=== PATIENT | male | born 1940 | race Caucasian/White ===

== ENCOUNTER 2019-12-09 06:12 | Emergency (ER) | payer OTHER ==
[2019-12-09] MEDS ORDERED: LIDOCAINE 1% MPF 5 ML VIAL ONE (07:31)
--- NOTE | 2019-12-09 08:46 | RAD REPORT ---
EXAM DESCRIPTION: RAD - Foot Right 3 View - 12/09/2019 8:19 am CLINICAL HISTORY: Right foot pain status post injury FINDINGS: No fracture or dislocation is seen
[2019-12-09] MEDS ORDERED: DERMABOND SKIN ADHESIVE TOP ONE (08:59)
--- NOTE | 2019-12-09 10:21 | ER ---
Nurse's Notes [facility] Name: Arnold Roberts Age: 79 yrs Sex: Male : 1940 Arrival Date: 12/09/2019 Time: 06:12 Bed 6 Private MD: Diagnosis: Superficial injury of head;Laceration with foreign body of scalp;Contusion of right foot Presentation: 12/08 06:19 Chief complaint: EMS states: PATIENT WAS HELPING WHO IS WHEELCHAIR BOUND. HE MISS rv THE STEP, FELL HEAD FIRST HITTING A WOODEN CLOCK. WITH LACERATION TO THE FOREHEAD, TOP OF THE HEAD, ABRASIONS TO LEFT ARM. PAIN ON THE TOES OF THE RIGHT FOOT. DENIES LOC. Care prior to arrival: None. Mechanism of Injury: Fall from standing position. Trauma event details: Injury occurred in the [facility], Injury occurred: at home. Injury occurred: December 09, 2019 Injury occurred at: 06:00. 06:19 Acuity: ORTIZ 2 rv 06:19 Method Of Arrival: EMS: [facility] rv 06:26 Coronavirus screen: Client denies travel out of the [place] in the last 14 days. Ebola rv Screen: No symptoms or risks identified at this time. Initial Sepsis Screen: Does the patient meet any 2 criteria? No. Patient's initial sepsis screen is negative. Does the patient have a suspected source of infection? No. Patient's initial sepsis screen is negative. Risk Assessment: Do you want to hurt yourself or someone else? Patient reports no desire to harm self or others. Onset of symptoms was December 09, 2019 at 06:00. Trauma Activation: Alert Physician: ED Physician; Name: DR TRIPATHI; Notified At: 06:15; Arrived At: 06:16 Physician: General Surgeon; Name: ; Notified At: 06:15; Arrived At: Physician: Radiology; Name: ARLEN; Notified At: 06:15; Arrived At: 06:20 Physician: Respiratory; Name: ; Notified At: 06:15; Arrived At: Physician: Lab; Name: ; Notified At: 06:15; Arrived At: Historical: - Allergies: 06:28 No Known Allergies; rv - PMHx: 06:28 Thyroid problem; Hypertension; High Cholesterol; rv - PSHx: 06:28 DOUBLE STOMACH HERNIA; CABG; Heart stents; PROSTATE SX; rv - Immunization history: Last tetanus immunization: < 5 years ago. - Social history:: Smoking status: Patient denies any tobacco usage or history of. - Family history:: not pertinent. - Hospitalizations: : No recent hospitalization is reported. Screenin:23 Abuse screen: Denies threats or abuse. Denies injuries from another. Tuberculosis rv screening: No symptoms or risk factors identified. 06:26 Nutritional screening: No deficits noted. Fall Risk Fall in past 12 months (25 points). rv Secondary diagnosis (15 points) impaired mobility, No IV (0 pts). Ambulatory Aid- Crutches/Cane/Walker (15 pts). Gait- Weak (10 pts.). Mental Status- Overestimates/Forgets Limitations (15 pts.). Total Ortiz Fall Scale indicates High Risk Score (45 or more points). Fall prevention measures have been instituted. Side Rails Up X 2 Frequent Obs/Assessments Occuring As available patient and family educated on Fall Prevention Program and Strategies. Primary Survey: 06:23 NO uncontrolled hemorrhage observed. Breathing/Chest: Respiratory pattern: regular. rv Circulation: Skin color: pink. Disability Alert. Exposure/Environment: There is no evidence of uncontrolled external bleeding. Obvious injury(ies) are noted at this time: MULTIPLE LACERATION TO THE HEAD. 07:23 Reassessment Airway Airway Patent Breathing/Chest Respiratory pattern Regular tw2 Respiratory effort Spontaneous Unlabored Breath sounds Clear Chest inspection Symmetrical Circulation Heart tones Present Temperature Warm Dry Disability Alert. Secondary Survey: 06:23 HEENT: Head Other LACERATION TO THE FOREHEAD, TOP OF THE SCALP. Face No rv injury/deformity Eyes: No injury or deformity noted. Ears: clear Nose: clear Throat: No injury or deformity noted. Gastrointestinal: No deficits noted. : No deficits noted. No signs and/or symptoms were reported regarding the genitourinary system. Musculoskeletal: Circulation, motion, and sensation intact. Assessment: 06:22 General: Appears comfortable, Behavior is calm, cooperative. Pain: Complains of pain in rv face and right foot. Neuro: Level of Consciousness is awake, alert, obeys commands, Oriented to person, place, time, situation. EENT: No signs and/or symptoms were reported regarding the EENT system. Cardiovascular: Patient's skin is warm and dry. Respiratory: Airway is patent Respiratory effort is even, unlabored, Breath sounds are clear bilaterally. Derm: Wound noted forehead. Injury Description: Laceration sustained to forehead. 06:26 Reassessment: PATIENT WAS TAKEN TO CT SCAN. rv 07:02 Reassessment: provider at bedside at this time. tw2 07:24 Reassessment: Patient appears in no apparent distress at this time. Patient and/or tw2 family updated on plan of care and expected duration. Pain level reassessed. Patient is alert, oriented x 3, equal unlabored respirations, skin warm/dry/pink. pt states "i have no way to get home, my has had a stroke and she cannot drive, and i dont have anyone to call", charge nurse notified of need for transportation to be arranged for discharge. 08:15 Reassessment: Dr Grove at the bedside for laceration repair. sv 10:14 Reassessment: provider at bedside at this time. Reassessment: Patient appears in no tw2 apparent distress at this time. Patient and/or family updated on plan of care and expected duration. Pain level reassessed. Patient is alert, oriented x 3, equal unlabored respirations, skin warm/dry/pink. 10:31 Reassessment: Patient appears in no apparent distress at this time. Patient and/or tw2 family updated on plan of care and expected duration. Pain level reassessed. Patient is alert, oriented x 3, equal unlabored respirations, skin warm/dry/pink. Vital Signs: 06:20 BP 137 / 78; Pulse 65; Resp 18; Temp 97.7(O); Pulse Ox 100% on R/A; oe 07:24 BP 125 / 67; Pulse 55; Resp 16; Pulse Ox 100% on R/A; tw2 08:14 BP 127 / 63; Pulse 61; Resp 16; Pulse Ox 100% ; sv 08:52 BP 142 / 71; Pulse 61; Resp 16; Pulse Ox 100% ; sv 09:34 BP 130 / 63; Pulse 59; Resp 16; Pulse Ox 100% ; sv 10:30 BP 132 / 65; Pulse 61; Resp 17; Pulse Ox 99% on R/A; tw2 Tiverton Coma Score: 06:23 Eye Response: spontaneous(4). Verbal Response: oriented(5). Motor Response: obeys rv commands(6). Total: 15. 07:24 Eye Response: spontaneous(4). Verbal Response: oriented(5). Motor Response: obeys tw2 commands(6). Total: 15. Trauma Score (Adult): 06:23 Eye Response: spontaneous(1); Verbal Response: oriented(1); Motor Response: obeys rv commands(2); Systolic BP: > 89 mm Hg(4); Respiratory Rate: 10 to 29 per min(4); Tiverton Score: 15; Trauma Score: 12 07:24 Eye Response: spontaneous(1); Verbal Response: oriented(1); Motor Response: obeys tw2 commands(2); Systolic BP: > 89 mm Hg(4); Respiratory Rate: 10 to 29 per min(4); Gagan Score: 15; Trauma Score: 12 08:52 Eye Response: spontaneous(1); Verbal Response: oriented(1); Motor Response: obeys sv commands(2); Systolic BP: > 89 mm Hg(4); Respiratory Rate: 10 to 29 per min(4); Tiverton Score: 15; Trauma Score: 12 09:34 Eye Response: spontaneous(1); Verbal Response: oriented(1); Motor Response: obeys sv commands(2); Systolic BP: > 89 mm Hg(4); Respiratory Rate: 10 to 29 per min(4); Gagan Score: 15; Trauma Score: 12 ED Course: 06:12 Patient arrived in ED. cl3 06:19 Beto Hurst, RN is Primary Nurse. rv 06:22 Triage completed. rv 06:23 Patient has correct armband on for positive identification. Placed in gown. Bed in low rv position. Call light in reach. Side rails up X2. 06:23 Patient maintains SpO2 saturation greater than 95% on room air. rv 06:28 Arm band placed on right wrist. Patient placed in the treatment room, on a stretcher, rv Patient notified of wait time. 06:28 Thermoregulation: warm blanket given to patient. rv 06:40 CT Head C Spine In Process Unspecified. EDMS 07:00 Antonio Grove MD is Attending Physician. rn 07:05 Primary Nurse role handed off by Beto Hurst RN tw2 07:05 Ginny Costa, RN is Primary Nurse. tw2 07:10 Warm blanket given. tw2 07:51 X-ray(s) taken. sv 07:56 Wound care: to laceration located on top of scalp was cleaned with soap and water, ut Patient tolerated well. 08:08 Assisted with bedpan. ut 08:17 Assist provider with laceration repair on top of head using sutures. Set up tray. tw2 Performed by Antonio Grove MD Patient tolerated well. 08:19 XRAY Foot RIGHT 3 View In Process Unspecified. EDMS 10:31 Patient did not have IV access during this emergency room visit. tw2 Administered Medications: 07:49 Drug: Lidocaine (1 %) 5 ml {Note: given to Dr Grove for procedure.} Volume: 5 ml; sv Route: Infiltration; Intake: 08:23 PO: 0ml; Total: 0ml. tw2 08:52 PO: 0ml; Total: 0ml. sv 09:34 PO: 0ml; Total: 0ml. sv Output: 08:52 Urine: 0ml; Total: 0ml. sv 09:17 Urine: 350ml (Voided); Total: 350ml. tw2 09:34 Urine: 0ml; Total: 350ml. sv Outcome: 08:18 Patient's length of stay in the Emergency Department was greater than 2 hours. pt d/t tw2 laceration repair neededPatient's length of stay extended due to 10:20 Discharge ordered by . rn 10:31 Discharged to home via wheelchair. tw2 10:31 Condition: stable 10:31 Discharge instructions given to patient, Instructed on discharge instructions, follow up and referral plans. medication usage, wound care, Demonstrated understanding of instructions, follow-up care, medications, wound care, Prescriptions given X 1. 10:31 Patient left the ED. tw2 Signatures: Dispatcher [employer] EDWI Liyah Nixon, Antonio Berrios RN, MD MD rn Wise, Tara, RN RN tw2 Tad Tabro Moriah ut Beto Hurst, Praveen Hatfield RN cl3
--- NOTE | 2019-12-09 10:22 | EDPHYS ---
Physician Documentation [facility] Name: Arnold Roberts Age: 79 yrs Sex: Male : 1940 Arrival Date: 12/09/2019 Time: 06:12 Bed 6 Private MD: ED Physician Antonio Grove HPI: 12/08 08:55 This 79 yrs old Male presents to ER via EMS with complaints of Fall Injury, rn Head Injury-Adult. 08:55 Details of fall: The patient fell from an upright position, while walking. Onset: The rn symptoms/episode began/occurred just prior to arrival. Associated injuries: The patient sustained injury to the head. Severity of symptoms: At their worst the symptoms were mild, in the emergency department the symptoms are unchanged. The patient has not experienced similar symptoms in the past. Reports missed step, fell forward, hit head on flower pot he thinks, no LOC, remembers all events, no blood thinners. + head injury with cut to head. . Historical: - Allergies: 06:28 No Known Allergies; rv - PMHx: 06:28 Thyroid problem; Hypertension; High Cholesterol; rv - PSHx: 06:28 DOUBLE STOMACH HERNIA; CABG; Heart stents; PROSTATE SX; rv - Immunization history: Last tetanus immunization: < 5 years ago. - Social history:: Smoking status: Patient denies any tobacco usage or history of. - Family history:: not pertinent. - Hospitalizations: : No recent hospitalization is reported. ROS: 08:55 Constitutional: Negative for fever, chills, and weight loss, Eyes: Negative for injury, rn pain, redness, and discharge, Neck: Negative for injury, pain, and swelling, Cardiovascular: Negative for chest pain, palpitations, and edema, Respiratory: Negative for shortness of breath, cough, wheezing, and pleuritic chest pain, Abdomen/GI: Negative for abdominal pain, nausea, vomiting, diarrhea, and constipation, MS/Extremity: + pain to right 4th toe Skin: + lacerations to forehead/scalp Neuro: Negative for headache, weakness, numbness, tingling, and seizure. Exam: 08:55 Constitutional: This is a well developed, well nourished patient who is awake, alert, rn and in no acute distress. Head/Face: + moderate laceration to frontal scalp, irregular, with multiple foreign bodies. + multiple superficial skin tears to top of scalp. Eyes: Pupils equal round and reactive to light, extra-ocular motions intact. Lids and lashes normal. Conjunctiva and sclera are non-icteric and not injected. Cornea within normal limits. Periorbital areas with no swelling, redness, or edema. ENT: No oral trauma Neck: No midline tenderness Cardiovascular: Regular rate and rhythm. No pulse deficits. Respiratory: No increased work of breathing, no retractions or nasal flaring. Abdomen/GI: soft, non-tender Skin: 3 Superficial linear lacerations top of scalp, each approx 1-2 cm in length, slow venous bleeding. MS/ Extremity: Pulses equal, no cyanosis. Neurovascular intact. Full, normal range of motion. Equal circumference. Neuro: Awake and alert, GCS 15, oriented to person, place, time, and situation. Cranial nerves II-XII grossly intact. Motor strength 5/5 in all extremities. Sensory grossly intact. Cerebellar exam normal. Vital Signs: 06:20 BP 137 / 78; Pulse 65; Resp 18; Temp 97.7(O); Pulse Ox 100% on R/A; oe 07:24 BP 125 / 67; Pulse 55; Resp 16; Pulse Ox 100% on R/A; tw2 08:14 BP 127 / 63; Pulse 61; Resp 16; Pulse Ox 100% ; sv 08:52 BP 142 / 71; Pulse 61; Resp 16; Pulse Ox 100% ; sv 09:34 BP 130 / 63; Pulse 59; Resp 16; Pulse Ox 100% ; sv 10:30 BP 132 / 65; Pulse 61; Resp 17; Pulse Ox 99% on R/A; tw2 Pearl Coma Score: 06:23 Eye Response: spontaneous(4). Verbal Response: oriented(5). Motor Response: obeys rv commands(6). Total: 15. 07:24 Eye Response: spontaneous(4). Verbal Response: oriented(5). Motor Response: obeys tw2 commands(6). Total: 15. Trauma Score (Adult): 06:23 Eye Response: spontaneous(1); Verbal Response: oriented(1); Motor Response: obeys rv commands(2); Systolic BP: > 89 mm Hg(4); Respiratory Rate: 10 to 29 per min(4); Pearl Score: 15; Trauma Score: 12 07:24 Eye Response: spontaneous(1); Verbal Response: oriented(1); Motor Response: obeys tw2 commands(2); Systolic BP: > 89 mm Hg(4); Respiratory Rate: 10 to 29 per min(4); Pearl Score: 15; Trauma Score: 12 08:52 Eye Response: spontaneous(1); Verbal Response: oriented(1); Motor Response: obeys sv commands(2); Systolic BP: > 89 mm Hg(4); Respiratory Rate: 10 to 29 per min(4); Pearl Score: 15; Trauma Score: 12 09:34 Eye Response: spontaneous(1); Verbal Response: oriented(1); Motor Response: obeys sv commands(2); Systolic BP: > 89 mm Hg(4); Respiratory Rate: 10 to 29 per min(4); Pearl Score: 15; Trauma Score: 12 Laceration: 10:15 Wound Repair of 8cm ( 3.1in ) subcutaneous laceration to forehead. Distal rn neuro/vascular/tendon intact. Anesthesia: Wound infiltrated with 4 mls of 1% lidocaine. Wound prep: Extensive cleansing by surveying or spatial science technician by nurse by me, Wound irrigation by surveying or spatial science technician, Particulate matter removal by me, Wound explored, Copious irrigation. Skin closed with 12 4-0 Prolene using interrupted sutures and sterile technique. Dressed with steri-strips. Patient tolerated well. 10:15 Wound Repair of 2cm ( 0.8in ) subcutaneous laceration to scalp. Distal rn neuro/vascular/tendon intact. Wound prep: Extensive cleansing. Skin closed with 1 thin layer Adhesive skin closure using Dermabond. Patient tolerated well. 10:15 Wound Repair of 1cm ( 0.4in ) subcutaneous laceration to scalp. Wound prep: Extensive rn cleansing. Skin closed with 1 thin layer Adhesive skin closure using Dermabond. Patient tolerated well. 10:15 Wound Repair of 1.5cm ( 0.6in ) subcutaneous laceration to scalp. Wound prep: Extensive rn cleansing by nurse. Skin closed with 1 thin layer Adhesive skin closure using Dermabond. Dressed with steri-strips. Patient tolerated well. MDM: 07:00 Patient medically screened. rn 10:15 Differential diagnosis: abrasion, closed head injury, contusion, fracture. Data rn reviewed: vital signs, nurses notes, radiologic studies, CT scan, plain films, and as a result, I will discharge patient. Counseling: I had a detailed discussion with the patient and/or guardian regarding: the historical points, exam findings, and any diagnostic results supporting the discharge/admit diagnosis, radiology results, the need for outpatient follow up, to return to the emergency department if symptoms worsen or persist or if there are any questions or concerns that arise at home. Response to treatment: the patient's symptoms have markedly improved after treatment, and as a result, I will discharge patient. Special discussion: Based on the patient's history, exam and DX evaluation, there is no indication for emergent intervention or inpatient TX. It is understood by the patient/guardian that if the SXs persist or worsen they need to return immediately for re-evaluation. I discussed with the patient/guardian in detail that at this point there is no indication for admission to the hospital. It is understood, however, that if the symptoms persist or worsen the patient needs to return immediately for re-evaluation. ED course: Wounds sutured and dermabonded, multiple ceramic pieces removed from wound, will dc home with abx and return precautions. . 12/08 06:21 Order name: CT Head C Spine tw4 12/08 07:06 Order name: XRAY Foot RIGHT 3 View rn 12/08 07:06 Order name: Wound Care; Complete Time: 07:56 rn 12/08 07:06 Order name: Suture Tray at Bedside; Complete Time: 07:07 rn 12/08 07:06 Order name: Sutures, Prolene; Complete Time: 07:22 rn Administered Medications: 07:49 Drug: Lidocaine (1 %) 5 ml {Note: given to Dr Grove for procedure.} Volume: 5 ml; sv Route: Infiltration; Disposition: 12/09/19 10:20 Discharged to Home. Impression: Superficial injury of head, Laceration with foreign body of scalp, Contusion of right foot. - Condition is Stable. - Discharge Instructions: Foot Contusion, Head Injury, Adult, Laceration Care, Adult. - Prescriptions for Keflex 500 mg Oral Capsule - take 1 capsule by ORAL route every 12 hours for 10 days; 20 capsule. - Medication Reconciliation Form, Thank You Letter, Antibiotic Education, Prescription Opioid Use form. - Follow up: Private Physician; When: As needed; Reason: Recheck today's complaints, Re-evaluation by your physician. Follow up: Emergency Department; When: 10 - 14 days; Reason: Staple/Suture removal. - Problem is new. - Symptoms have improved. Signatures: Dispatcher [employer] EDLiyah Gramajo, RN RN Antonio Ramirez MD MD rn Wise, Ginny, RN RN tw2 Beto Hurst, RN RN rv Corrections: (The following items were deleted from the chart) 10:15 08:55 Constitutional: This is a well developed, well nourished patient who is awake, rn alert, and in no acute distress. Head/Face: + moderate laceration to frontal scalp, irregular, with multiple foreign bodies. + multiple superficial skin tears to top of scalp. Eyes: Pupils equal round and reactive to light, extra-ocular motions intact. Lids and lashes normal. Conjunctiva and sclera are non-icteric and not injected. Cornea within normal limits. Periorbital areas with no swelling, redness, or edema. ENT: No oral trauma Neck: No midline tenderness Cardiovascular: Regular rate and rhythm. No pulse deficits. Respiratory: No increased work of breathing, no retractions or nasal flaring. Abdomen/GI: soft, non-tender MS/ Extremity: Pulses equal, no cyanosis. Neurovascular intact. Full, normal range of motion. Equal circumference. Neuro: Awake and alert, GCS 15, oriented to person, place, time, and situation. Cranial nerves II-XII grossly intact. Motor strength 5/5 in all extremities. Sensory grossly intact. Cerebellar exam normal. rn 10:21 10:20 12/09/2019 10:20 Discharged to Home. Impression: Superficial injury of head; rn Laceration with foreign body of scalp; Contusion of right foot. Condition is Stable. Forms are Medication Reconciliation Form, Thank You Letter, Antibiotic Education, Prescription Opioid Use. Follow up: Private Physician; When: As needed; Reason: Recheck today's complaints, Re-evaluation by your physician. Problem is new. Symptoms have improved. rn 10:31 10:21 12/09/2019 10:20 Discharged to Home. Impression: Superficial injury of head; tw2 Laceration with foreign body of scalp; Contusion of right foot. Condition is Stable. Discharge Instructions: Foot Contusion, Head Injury, Adult, Laceration Care, Adult. Prescriptions for Keflex 500 mg Oral Capsule - take 1 capsule by ORAL route every 12 hours for 10 days; 20 capsule. and Forms are Medication Reconciliation Form, Thank You Letter, Antibiotic Education, Prescription Opioid Use. Follow up: Private Physician; When: As needed; Reason: Recheck today's complaints, Re-evaluation by your physician. Follow up: Emergency Department; When: 10 - 14 days; Reason: Staple/Suture removal. Problem is new. Symptoms have improved. rn
[2019-12-09 10:36] VITALS: TEMP 97.7
[2019-12-09 10:43] VITALS: BP 132/65; O2SAT 99
--- NOTE | 2019-12-09 14:40 | RAD REPORT ---
EXAM DESCRIPTION: CT - Head C Spine Mpr Wo Con - 12/09/2019 7:07 am CLINICAL HISTORY: The patient is 79 years old and is Male; trauma fall pain TECHNIQUE: Axial computed tomography images of the head/brain and cervical spine without intravenous contrast. Sagittal and coronal reformatted images were created and reviewed. This CT exam was pe rformed using one or more of the following dose reduction techniques: automated exposure control, a djustment of the mA and/or kV according to patient size, and/or use of iterative reconstruction techn ique. COMPARISON: CT November 25, 2019 FINDINGS: BRAIN: Focal area of encephalomalacia within the left frontal lobe is present. There is diffuse cerebral atrophy present, consistent with this patient's age. There is patchy hypoattenuati on of the deep white matter which is non-specific, but most likely owing to chronic small vessel isch emic change in a patient of this age group. No intracranial hemorrhage, mass effect, or midline alejandro ft is seen. There are no extra-axial fluid collections. VENTRICLES: Unremarkable. No ventriculomegaly. SKULL: No acute fracture. SINUSES: Unremarkable as visualized. No acute sinusitis. MASTOID AIR CELLS: Unremarkable as visualized. No mastoid effusion. VERTEBRAE: Postsurgical change of the cervical spine with laminectomy at C4-C5 noted. Interverteb ral disc space narrowing with osteophyte formation 4 through C6 is residue there is no significant ca nal stenosis. DISCS/SPINAL CANAL/NEURAL FORAMINA: See above. SOFT TISSUES: The soft tissues are normal. VASCULATURE: Atherosclerosis of the vasculature is present. LUNG APICES: The lung apices are clear. IMPRESSION: 1. No acute intracranial findings. 2. Moderate spondylosis of the cervical spine without acute findings. Electronically signed by: Mamie Smith MD 12/09/2019 6:[address] [facility] Due to temporary technical issues with the PACS/Fluency reporting system, reports are being signed by the in house radiologists without review as a courtesy to insure prompt reporting. The interpreting radiologist is fully responsible for the content of the report.
== END 2019-12-09 10:31 | disposition home or self-care (01) ==
LOC: ER 06:12
PROC: 0JQ00ZZ Repair Scalp Subcutaneous Tissue and Fascia, Open Approach (ICD-10-PCS; principal; 2019-12-09)
DX: S01.01XA Laceration without foreign body of scalp, initial encounter (principal); S90.31XA Contusion of right foot, initial encounter; W01.198A Fall on same level from slipping, tripping and stumbling with subsequent striking against other object, initial encounter; Y93.89 Activity, other specified; Y92.9 Unspecified place or not applicable; Z95.1 Presence of aortocoronary bypass graft; Z95.818 Presence of other cardiac implants and grafts; I10 Essential (primary) hypertension
CPT/HCPCS: 70450; 72125; 99284; G0390

== ENCOUNTER 2019-12-23 06:10 | Day surgery (SDC) | payer OTHER ==
--- NOTE | 2019-12-19 10:37 | RAD REPORT ---
EXAM DESCRIPTION: RAD - Chest Pa And Lat (2 Views) - 12/19/2019 10:28 am CLINICAL HISTORY: preop, patient pending skin graft procedure COMPARISON: Two view chest April 2018 TECHNIQUE: Frontal and lateral views of the chest were obtained. FINDINGS: The lungs are clear of an acute infiltrate or mass. Heart size is normal and central vas culature is within normal limits. No pleural effusion or pneumothorax seen. No acute bony finding n oted. No aortic abnormality. IMPRESSION: No acute cardiopulmonary process. No significant change from comparison study.
[2019-12-19 11:07] LABS: Absolute Lymphocytes (CBC) 1.9 K/uL (0.7-4.9); Basophils % 0.4 % (0-1.3); Hematocrit 43.7 % (39.6-49.0); Lymphocytes % 20.5 % (15.3-44.8); MPV 8.4 fL (7.6-11.3); RBC Red Blood Cell Count 4.48 M/uL (4.33-5.43)
[2019-12-19 11:20] LABS: Potassium 4.1 mmol/L (3.5-5.1)
[2019-12-19 11:21] LABS: Protime INR 0.95
[2019-12-23] MEDS ORDERED: Ringers Lactate 1,000 ML IV ONE (07:05)
[2019-12-23] MEDS ORDERED: CEFAZOLIN/SWI 1gm 2 GM/20 ML SYR ONE (07:09)
[2019-12-23] MEDS ORDERED: NITROGLYCERIN 1 GM PKT TD ONE (07:15)
[2019-12-23] MEDS ORDERED: FENTANYL CITR 100 MCG/2 ML ONE (07:19)
[2019-12-23] MEDS ORDERED: LIDOCAINE 1% MPF 5 ML VIAL ONE (07:19)
[2019-12-23] MEDS ORDERED: propofoL 200 MG/20 ML VIAL IV ONE ×3 (07:19→07:55)
[2019-12-23 07:24] VITALS: O2SAT 100
[2019-12-23] MEDS ORDERED: EPINEPHRINE/PF 1 MG/ML AMP ONE (07:48)
[2019-12-23] MEDS ORDERED: EPHEDRINE SULF 50 MG/ML VIAL ONE (07:57)
[2019-12-23] MEDS ORDERED: NS 0.9% VIAL 10 ML ONE (07:58)
[2019-12-23] MEDS ORDERED: KETOROLAC 30 MG/ML INJ ONE (08:12)
[2019-12-23] MEDS ORDERED: LIDOCAINE JELLY 2%- 5 ML TUBE ONE (08:13)
[2019-12-23] MEDS ORDERED: Mastisol Adhesive Liq ONE (09:14)
[2019-12-23 09:32] VITALS: TEMP 96.8
--- NOTE | 2019-12-23 10:21 | OP ---
Date of Procedure: 12/23/2019 Surgeon: EASTON GARDNER Preoperative Diagnosis: History of right scalp undifferentiated sarcoma. Postoperative Diagnosis: History of right scalp undifferentiated sarcoma. Procedure: Excision of right scalp undifferentiated sarcoma, additional margin, split-thickness skin graft 4 x 4. Anesthesia: General. Estimated Blood Loss: 10. Iv Fluids: 350. Urine Output: Not recorded. Indications: Arnold Roberts is an 79-year-old male with biopsy-proven right scalp undifferentiated khushi coma with previously excised with unknown margins by a local market consultant. Per pathology, negative margins were achieved. Because this malignancy is high risk for local recurrence, a 2 cm margin is r ecommended; however, this was not achieved in the area for unknown reason. He has management with a multidisciplinary team and recommendations were for additional radial and deep margins followed by ad juvant radiation. We discussed taking a split-thickness skin graft to close his scalp wound. The pa tient was aware that in doing so, he would no longer has hair in this area, but it would provide the benefit of monitoring for local recurrence. Plan is for radiation after 6 weeks of healing. We disc ussed the risks and benefits including bleeding, infection, injuries to surrounding structures, scarr ing, recurrence, and need for additional procedures. After thorough discussion of the risks and bene fits, the patient was deemed an appropriate surgical candidate. Procedure In Detail: After written consent, the patient was brought into the holding area. He was b rought to the operating room. Pressure points were padded. SCDs were placed and turned on. Preoper ative antibiotics were given. The patient was placed under general anesthesia. The right scalp and right thigh were shaved of hair. Then, the right scalp area was cleaned with a Betadine scrub brush to eliminate debris. The defect at that time was roughly 2.5 cm circular diameter with granulation b ase. Tumescent was infiltrated into the scalp wound and the right thigh for hemostasis of 100 cc of a mixture of 1 amp of epinephrine and 100 mL of normal saline was used. Approximately 20 cc was infi ltrated in the scalp. 20 minutes had elapsed. Then, the patient was prepped and draped in the usual fashion. First, attention was paid to the right scalp wound. As previously mentioned, it was 2.5 c m circumferentially with a granular base. An additional 0.5 mm margin was marked circumferentially a nd this was excised in a subgaleal plan leaving the pericranium intact at the base. It was marked sh ort superior, long medial and sent off for permanent pathology. After this, the wound was irrigated and hemostasis was achieved. At this point, the defect was evaluated and measured 4 x 4 cm with a gr aftable base. Attention was then paid to the right thigh. For skin grafting, a split-thickness skin graft was harvested with the use of a dermatome on 0.016 of an inch thick with the 5 cm handpiece. It was harvested at the sheath graft and then it was pie-crusted on the back table. The wound was co jen with lap soaked with saline and epinephrine. Once the graft was pie-crusted, it was placed ont o the wound. It was trimmed and sewed in with 4-0 chromic. Multiple deep sutures were placed to the pericranium in order to allow adherence of the graft. Next, a bolster was fashioned on the back tab le for Xeroform and cotton balls soaked in mineral oil. It was applied to the graft and sewn in with tie over bolster sutures consistent of 2-0 nylon. After this, the right leg was evaluated. There w as no bleeding. A sheath of Xeroform was trimmed and sewn over the wound with 4-0 chromic. After th is, Mastisol was placed around the wound and a large Tegaderm was placed. The patient tolerated the procedure well. All instrument counts and laparotomy pads were counted for by at the end of the proc edure. Specimens: Right scalp additional margin, short-stitch hernandez superior, long-stitch hernandez medial. Complications: None. Disposition: To PACU, then home. He will be seen on postop day 7 for followup. THAD/AYANA Voice ID: [id number] Report ID: [id number]
[2019-12-23 10:46] VITALS: BP 124/62
== END 2019-12-23 10:35 | disposition home or self-care (01) ==
LOC: OR 06:10
PROVIDERS: ATTEND Plastic Surgery
PROC: 0HBHXZZ Excision of Right Upper Leg Skin, External Approach (ICD-10-PCS; 2019-12-23)
PROC: 0HR0X74 Replacement of Scalp Skin with Autologous Tissue Substitute, Partial Thickness, External Approach (ICD-10-PCS; principal; 2019-12-23 07:30)
DX: C49.0 Malignant neoplasm of connective and soft tissue of head, face and neck (principal); I10 Essential (primary) hypertension; Z20.828 Contact with and (suspected) exposure to other viral communicable diseases; Z95.1 Presence of aortocoronary bypass graft; I25.10 Atherosclerotic heart disease of native coronary artery without angina pectoris; Z79.02 Long term (current) use of antithrombotics/antiplatelets; E07.9 Disorder of thyroid, unspecified
CPT/HCPCS: 36415; 71046; 80048; 85025; 85610; 85730; 88305; J0171; J0690; J2704; J3010; J7120; U0002

== ENCOUNTER 2022-03-06 09:38 | Day surgery (SDC) | payer OTHER ==
[2022-03-03 16:45] LABS: Absolute Lymphocytes (CBC) 1.9 K/uL (0.7-4.9); Hematocrit 39.4 % (39.6-49.0); Lymphocytes % 24.4 % (15.3-44.8); MCV 97.9 fL (80-100); MPV 7.7 fL (7.6-11.3); RBC Red Blood Cell Count 4.02 M/uL (4.33-5.43)
[2022-03-03 16:49] LABS: Potassium 4.3 mmol/L (3.5-5.1)
--- NOTE | 2022-03-03 17:29 | RAD REPORT ---
EXAM DESCRIPTION: RAD - Chest Pa And Lat (2 Views) - 03/03/2022 4:35 pm CLINICAL HISTORY: Pre op pending skin cancer removals COMPARISON: Chest Pa And Lat (2 Views) dated 12/19/2019; Chest Pa And Lat (2 Views) dated 04/26/2018; Chest Pa And Lat (2 Views) dated 05/17/2017; CHEST SINGLE VIEW dated 09/24/2014 FINDINGS: Lines: None. Lungs: No evidence of edema or pneumonia. Pleural: No significant pleural effusions or pneumothorax. Cardiac: The heart size is within normal limits. Mediastinum: Within normal limits. Bones: No acute fractures. Sternotomy. Other: None IMPRESSION: No acute cardiopulmonary disease.
[2022-03-06] MEDS ORDERED: FENTANYL CITR 100 MCG/2 ML ONE (09:47)
[2022-03-06] MEDS ORDERED: propofoL 200 MG/20 ML VIAL IV ONE ×3 (09:47→12:24)
[2022-03-06] MEDS ORDERED: LIDOCAINE 2% MPF 5 ML VIAL ONE (09:47)
[2022-03-06] MEDS ORDERED: Ringers Lactate 1,000 ML IV ONE (10:09)
[2022-03-06 11:09] VITALS: O2SAT 100
[2022-03-06] MEDS ORDERED: CEFAZOLIN SODIUM 1 GM/VIAL ONE (11:11)
[2022-03-06] MEDS ORDERED: NS 0.9% VIAL 10 ML ONE ×2 (11:23→11:44)
[2022-03-06] MEDS ORDERED: EPHEDRINE SULF 50 MG/ML VIAL ONE (11:44)
--- NOTE | 2022-03-06 12:51 | P.BOP ---
Preoperative diagnosis: sq cell carcinoma nose, neck, R arm Postoperative diagnosis: same Primary procedure: 1.Wide excision with frozen section sq cell carcinoma R sup lat neck 2x2cm Secondary procedure: 2.Wide excision with frozen sq cell carcinoma L inf ant neck 2x2cm Other procedure(s): 3.Wide excision with frozen sq cell carcinoma R dist post upper arm 2x2cm Estimated blood loss: <10cc Specimen: mass x 3 Findings: Nasal area not done. Unable to precisely locate. The rest, margins free Complications: None Transferred to: Recovery Room Condition: Good
[2022-03-06 16:32] VITALS: BP 114/54; TEMP 96.8
--- NOTE | 2022-03-07 17:09 | EKG ---
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
== END 2022-03-06 14:22 | disposition home or self-care (01) ==
LOC: OR 09:38
PROVIDERS: ATTEND Surgery
PROC: 0HBBXZZ Excision of Right Upper Arm Skin, External Approach (ICD-10-PCS; 2022-03-06)
PROC: 0HB4XZZ Excision of Neck Skin, External Approach (ICD-10-PCS; principal; 2022-03-06 12:00)
DX: C44.42 Squamous cell carcinoma of skin of scalp and neck (principal); C44.622 Squamous cell carcinoma of skin of right upper limb, including shoulder; I10 Essential (primary) hypertension; E03.9 Hypothyroidism, unspecified; E78.00 Pure hypercholesterolemia, unspecified; Z95.5 Presence of coronary angioplasty implant and graft
CPT/HCPCS: 93005; 85025; 80048; 36415; 88331; 88332; 88305; 71046; 11622 ×2; 11402; J2704 ×3; J2001; J3010; A4216 ×2; J7120; J0690

== ENCOUNTER 2023-07-26 09:04 | Inpatient (IN) | payer OTHER ==
[2023-07-26 09:28] LABS: Absolute Basophils 0.1 K/uL (0-0.5); Absolute Eosinophils 0.1 K/uL (0-0.5); Absolute Monocytes 1.3 K/uL (0.1-1.3); Absolute Neutrophil 10.7 K/uL (1.8-8.0); Basophils % 0.7 % (0-1.3); Eosinophils % 0.8 % (0-4.4); Hematocrit 42.5 % (39.6-49.0); Hemoglobin 14.4 g/dL (13.6-17.9); Lymphocytes % 7.6 % (15.3-44.8); MCH 33.4 pg (27.0-35.0); MCV 98.2 fL (80-100); MPV 7.1 fL (7.6-11.3); Monocytes % 9.9 % (3.3-12.3); Nucleated Red Blood Cells % 0.1 % (0-0); Platelets 298 thou/uL (152-406); RBC Red Blood Cell Count 4.33 M/uL (4.33-5.43); Red Cell Distribution Width 13.9 % (12.1-15.2)
[2023-07-26 09:33] LABS: PT Prothrombin Time 12.9 SECONDS (9.4-12.5); Protime INR 1.18
--- NOTE | 2023-07-26 10:37 | RAD REPORT ---
EXAM DESCRIPTION: Abhishek Single View07/26/2023 9:42 am CLINICAL HISTORY: PALPITATIONS COMPARISON: Chest Pa And Lat (2 Views) dated 03/03/2022; Chest Pa And Lat (2 Views) dated 12/19/2019; Chest Pa And Lat (2 Views) dated 04/26/2018; Chest Pa And Lat (2 Views) dated 05/17/2017 TECHNIQUE: Portable AP view of the chest. FINDINGS: The lungs are clear. Decreased inspiratory effort limits evaluation. No pneumothorax or e ffusion. Sequelae of median sternotomy. The cardiomediastinal contours are unremarkable. IMPRESSION: No acute cardiopulmonary process.
[2023-07-26 11:59] LABS: Albumin 3.2 g/dL (3.4-5.0); Albumin/Globulin Ratio 0.8 (1.1-1.8); Anion Gap 10.2 mEq/L (5.0-15.0); Bilirubin Direct 0.4 mg/dL (0-0.2); Bilirubin Indirect, Calculated 1.1 mg/dL (0.2-0.8); Bilirubin Total 1.5 mg/dL (0.2-1.0); Globulin 4.2 g/dL (2.3-3.5); Magnesium 1.7 mg/dL (1.6-2.4); Potassium 4.2 mEq/L (3.5-5.1); Protein, Total 7.4 g/dL (6.4-8.2); Thyroid Stimulating Hormone 2.74 uIU/mL (0.358-3.740); Troponin High Sensitivity 20.3 pg/mL (<58.9)
--- NOTE | 2023-07-26 12:45 | EDPHYS ---
Physician Documentation [facility] Name: Arnold Roberts Age: 83 yrs Sex: Male : 1940 Arrival Date: 07/26/2023 Time: 09:04 Bed 2 Private MD: ED Physician Deborah Topete HPI: 07/25 09:18 This 83 yrs old Male presents to ER via EMS with complaints of palpitations. sp3 09:18 83-year-old male with history of hyperlipidemia, hypertension, hypothyroidism status sp3 post coronary artery bypass graft surgery now presents to the ED with chief complaint of palpitations and episodic shortness of breath/chest pain. His symptoms initially started approximately 2 hours ago prior to arrival before activating EMS. Currently symptoms are improved. For EMS patient was in a right bundle branch block with occasional PVCs. Vital signs have been normal. He denies any other symptoms including headache, facial pain, neck pain, extremity pain, back pain, abdominal pain, nausea, vomiting, diarrhea, syncope, near syncope, rash, bleeding, travel history, prolonged immobilization, known sick contacts, or any other signs or symptoms on ROS at this time.. Historical: - Allergies: 09:09 No Known Allergies; ko1 - Home Meds: :09 Unable to obtain [Active]; ko1 - PMHx: 09:09 High Cholesterol; Hypertension; Thyroid problem; Coronary atherosclerosis; ko1 - PSHx: 09:09 Coronary artery bypass graft; Coronary Angioplasty; Stented artery; ko1 - Immunization history:: Adult Immunizations up to date. - Infectious Disease History:: Denies. - Social history:: Smoking status: Patient denies any tobacco usage or history of. ROS: 09:19 Constitutional: Negative for fever, chills, and weight loss, Eyes: Negative for injury, sp3 pain, redness, and discharge, ENT: Negative for injury, pain, and discharge, Neck: Negative for injury, pain, and swelling, Abdomen/GI: Negative for abdominal pain, nausea, vomiting, diarrhea, and constipation, Back: Negative for injury and pain, MS/Extremity: Negative for injury and deformity, Skin: Negative for injury, rash, and discoloration, Neuro: Negative for headache, weakness, numbness, tingling, and seizure, Psych: Negative for depression, anxiety, suicide ideation, homicidal ideation, and hallucinations, Allergy/Immunology: Negative for hives, rash, and allergies, Endocrine: Negative for neck swelling, polydipsia, polyuria, polyphagia, and marked weight changes, Hematologic/Lymphatic: Negative for swollen nodes, abnormal bleeding, and unusual bruising, 09:19 All other systems are negative, Exam: :19 Constitutional: This is a well developed, well nourished patient who is awake, alert, sp3 and in no acute distress. Head/Face: Normocephalic, atraumatic. Eyes: Pupils equal round and reactive to light, extra-ocular motions intact. Lids and lashes normal. Conjunctiva and sclera are non-icteric and not injected. Cornea within normal limits. Periorbital areas with no swelling, redness, or edema. ENT: Nares patent. No nasal discharge, no septal abnormalities noted. External auditory canals are clear. Oropharynx with no redness, swelling, or masses, exudates, or evidence of obstruction, uvula midline. Mucous membranes moist. Neck: Trachea midline, no thyromegaly or masses palpated, and no cervical lymphadenopathy. Supple, full range of motion without nuchal rigidity, or vertebral point tenderness. No Meningismus. Chest/axilla: Normal chest wall appearance and motion. Nontender with no deformity. No lesions are appreciated. Cardiovascular: Regular rate and rhythm with a normal S1 and S2. No gallops, murmurs, or rubs. Normal PMI, no JVD. No pulse deficits. Respiratory: Lungs have equal breath sounds bilaterally, clear to auscultation and percussion. No rales, rhonchi or wheezes noted. No increased work of breathing, no retractions or nasal flaring. Abdomen/GI: Soft, non-tender, with normal bowel sounds. No distension or tympany. No guarding or rebound. No evidence of tenderness throughout. Back: No spinal tenderness. No costovertebral tenderness. Full range of motion. Skin: Warm, dry with normal turgor. Normal color with no rashes, no lesions, and no evidence of cellulitis. MS/ Extremity: Pulses equal, no cyanosis. Neurovascular intact. Full, normal range of motion. Neuro: Awake and alert, GCS 15, oriented to person, place, time, and situation. Cranial nerves II-XII grossly intact. Motor strength 5/5 in all extremities. Sensory grossly intact. Cerebellar exam normal. Normal gait. Psych: Awake, alert, with orientation to person, place and time. Behavior, mood, and affect are within normal limits. 09:19 ECG was reviewed by the Attending Physician. EKG demonstrates normal sinus rhythm at 73 bpm with a normal intervals except for first-degree heart block with WI interval 202, right bundle branch block, occasional PVC and nonspecific diffuse ST's ST changes without evidence of acute ischemia not significantly different from prior EKG dated March 03, 2022. Vital Signs: 09:07 BP 143 / 71; Pulse 73; Resp 16; Temp 98; Pulse Ox 98% on 2 lpm NC; ko1 09:25 BP 119 / 60; Pulse 70; Resp 19; Pulse Ox 100% on 2 lpm NC; ko1 09:42 BP 139 / 69; Pulse 70; Resp 24; Pulse Ox 100% on 2 lpm NC; ko1 10:16 BP 132 / 70; Pulse 75; Resp 19; Pulse Ox 100% ; ko1 12:04 BP 135 / 68; Pulse 75; Resp 18; Pulse Ox 100% ; ko1 MDM: 09:09 Patient medically screened. sp3 09:20 Data reviewed: vital signs, nurses notes, EMS record, old medical records, lab test sp3 result(s), EKG, radiologic studies. ED course: 83-year-old male with complex past medical history including CABG now with palpitations and chest pain. Troponin pending but heart score will be high due to history. Differential diagnosis includes acute coronary syndrome, electrolyte abnormality, thyroid abnormality, among others. I am not highly suspicious for infectious etiology, aortic or vascular pathology, or any other critical pathology at this time. Workup will include EKG, chest x-ray, laboratory values including thyroid and troponin. Disposition probable 23-hour observation with cardiology consultation. His parliamentary counsel is Dr. Li.. 07/25 09:10 Order name: Basic Metabolic Panel; Complete Time: 12: sp3 07/25 09:10 Order name: CBC with Diff; Complete Time: 10: sp3 07/25 09:10 Order name: LFT's; Complete Time: 12: sp3 07/25 09:10 Order name: Magnesium; Complete Time: 12: sp3 07/25 09:10 Order name: NT PRO-BNP; Complete Time: 12: sp3 07/25 09:10 Order name: PT-INR; Complete Time: 10:29 sp3 07/25 09:10 Order name: Troponin HS; Complete Time: 12:07 sp3 07/25 09:10 Order name: TSH; Complete Time: 12:07 sp3 07/25 12:58 Order name: Troponin High Sensitivity EDMS 07/25 12:58 Order name: Troponin High Sensitivity EDMS 07/25 12:58 Order name: Troponin High Sensitivity EDMS 07/25 13:07 Order name: DD la1 07/25 09:10 Order name: XRAY Chest (1 view); Complete Time: 10:40 sp3 07/25 12:08 Order name: US Abdomen Limited; Complete Time: 12:51 sp3 07/25 09:10 Order name: Cardiac monitoring; Complete Time: 09:10 sp3 07/25 09:10 Order name: EKG - Nurse/Tech; Complete Time: 09:10 sp3 07/25 09:10 Order name: IV Saline Lock; Complete Time: 09:13 sp3 07/25 09:10 Order name: Labs collected and sent; Complete Time: 09:13 sp3 07/25 09:10 Order name: O2 Per Protocol; Complete Time: 09:10 sp3 07/25 09:10 Order name: O2 Sat Monitoring; Complete Time: 09:11 sp3 Administered Medications: 13:19 Drug: Furosemide IVP 40 mg IVP once; give over 2 minutes Route: IVP; Site: right ko1 antecubital; Disposition Summary: 07/26/23 12:45 Hospitalization Ordered Notes: Hospitalization Status: Observation sp3 Provider: [place] sp3 Condition: Stable sp3 Problem: an acute exacerbation sp3 Symptoms: have worsened sp3 Bed/Room Type: Standard sp3 Location: Telemetry/MedSurg (observation)(07/26/23 14:36) em1 Room Assignment: 230(07/26/23 14:36) em1 Diagnosis - Chest pain, palpitations sp3 Forms: - Medication Reconciliation Form sp3 - SBAR form sp3 - Leadership Thank You Letter sp3 Signatures: Dispatcher [employer] Rashawn Barcenas em1 Dallas Walden, STENOTYPE OPERATOR-C STENOTYPE OPERATOR-Cla1 Deborah Topete MD MD sp3 Jen Weeks RN RN ko1 Corrections: (The following items were deleted from the chart) 14: 12:45 Telemetry/MedSurg (observation) sp3 em1 14:20 12:45 sp3 em1 14:36 14:20 [facility] ER HOLD em1 em1 14:36 14:20 ERHOLD- em1 em1
--- NOTE | 2023-07-26 12:45 | ER ---
Nurse's Notes [facility] Name: Arnold Roberts Age: 83 yrs Sex: Male : 1940 Arrival Date: 07/26/2023 Time: 09:04 Bed 2 Private MD: Diagnosis: Chest pain, palpitations Presentation: 07/25 09:07 Chief complaint: EMS states: patient called because he felt like his heart was racing, ko1 it started last night. HR maintained 70'-80's with occasional PVCs. Coronavirus screen: At this time, the client does not indicate any symptoms associated with coronavirus-19. Ebola Screen: No symptoms or risks identified at this time. Initial Sepsis Screen: Does the patient meet any 2 criteria? No. Patient's initial sepsis screen is negative. Does the patient have a suspected source of infection? No. Patient's initial sepsis screen is negative. Risk Assessment: Do you want to hurt yourself or someone else? Patient reports no desire to harm self or others. Onset of symptoms was July 26, 2023. Care prior to arrival: Medication(s) given: Normal saline infusion, 500 mL, IV initiated. 20 GA, in the right antecubital area, Glucose check: 107 Oxygen administered. via nasal cannula. 09:07 Method Of Arrival: EMS: [facility] ko1 09:07 Acuity: ORTIZ 3 ko1 Triage Assessment: 09:09 General: Appears in no apparent distress. comfortable, Behavior is cooperative, ko1 appropriate for age, anxious. Pain: Denies pain. EENT: No deficits noted. Neuro: No deficits noted. Cardiovascular: Reports palpitations, shortness of breath. Respiratory: Reports shortness of breath on exertion. GI: No deficits noted. : No deficits noted. Derm: No deficits noted. Musculoskeletal: No deficits noted. Historical: - Allergies: 09:09 No Known Allergies; ko1 - Home Meds: 09:09 Unable to obtain [Active]; ko1 - PMHx: 09:09 High Cholesterol; Hypertension; Thyroid problem; Coronary atherosclerosis; ko1 - PSHx: 09:09 Coronary artery bypass graft; Coronary Angioplasty; Stented artery; ko1 - Immunization history:: Adult Immunizations up to date. - Infectious Disease History:: Denies. - Social history:: Smoking status: Patient denies any tobacco usage or history of. Screenin:11 [facility] ED Fall Risk Assessment (Adult) History of falling in the last 3 months, ko1 including since admission No falls in past 3 months (0 pts) Confusion or Disorientation No (0 pts) Intoxicated or Sedated No (0 pts) Impaired Gait No (0 pts) Mobility Assist Device Used No (0 pt) Altered Elimination No (0 pt) Score/Fall Risk Level 0 - 2 = Low Risk Oriented to surroundings, Maintained a safe environment, Educated pt \T\ family on fall prevention, incl call for assistance when getting out of bed, Assessed \T\ reinforced patient's understanding of fall precautions, Provided non-skid footwear, Hourly rounding (assess needs \T\ fall precautionary measures) done. Abuse screen: Denies threats or abuse. Denies injuries from another. Nutritional screening: No deficits noted. Tuberculosis screening: No symptoms or risk factors identified. Assessment: 09:11 Reassessment: see triage note. ko1 Vital Signs: 09:07 BP 143 / 71; Pulse 73; Resp 16; Temp 98; Pulse Ox 98% on 2 lpm NC; ko1 09:25 BP 119 / 60; Pulse 70; Resp 19; Pulse Ox 100% on 2 lpm NC; ko1 09:42 BP 139 / 69; Pulse 70; Resp 24; Pulse Ox 100% on 2 lpm NC; ko1 10:16 BP 132 / 70; Pulse 75; Resp 19; Pulse Ox 100% ; ko1 12:04 BP 135 / 68; Pulse 75; Resp 18; Pulse Ox 100% ; ko1 ED Course: 09:06 Patient arrived in ED. ko1 09:07 Jen Weeks, LLOYD is Primary Nurse. ko1 09:09 Triage completed. ko1 09:09 Deborah Topete MD is Attending Physician. sp3 09:09 Arm band placed on right wrist. Patient placed in an exam room, on a stretcher, on ko1 oxygen, on commercial portfolio manager, on pulse oximetry, Patient notified of wait time. 09:11 EKG done, by ED staff, reviewed by Deborah Topete MD. jr12 09:11 No provider procedures requiring assistance completed. Maintain EMS IV. Dressing ko1 intact. Good blood return noted. Site clean \T\ dry. Gauge \T\ site: 20g right AC. Oxygen administration via nasal cannula \T\ 2L/min Response to oxygen therapy: symptoms improved. 09:11 Patient has correct armband on for positive identification. Placed in gown. Bed in low ko1 position. Call light in reach. Side rails up X2. Provided Education on: call light, labs, tests. Client placed on continuous cardiac and pulse oximetry monitoring. NIBP monitoring applied. agent broker on. Door closed. Noise minimized. Lights dimmed. Warm blanket given. Pillow given. 09:13 TSH Sent. ko1 09:13 Basic Metabolic Panel Sent. ko1 09:14 CBC with Diff Sent. ko1 09:14 LFT's Sent. ko1 09:14 Magnesium Sent. ko1 09:14 NT PRO-BNP Sent. ko1 09:14 PT-INR Sent. ko1 09:14 Troponin HS Sent. ko1 09:25 Initial lab(s) drawn, by me, sent to lab. ko1 09:44 XRAY Chest (1 view) In Process Unspecified. EDMS 11:26 TSH Sent. ko1 11:27 Basic Metabolic Panel Sent. ko1 11:27 LFT's Sent. ko1 11:27 Magnesium Sent. ko1 11:27 NT PRO-BNP Sent. ko1 11:27 Troponin HS Sent. ko1 12:40 US Abdomen Limited In Process Unspecified. EDMS 12:45 E[place]ada [place] MD is Hospitalizing Provider. sp3 Administered Medications: 13:19 Drug: Furosemide IVP 40 mg IVP once; give over 2 minutes Route: IVP; Site: right ko1 antecubital; Medication: 09:11 VIS not applicable for this client. ko1 Output: 13:32 Urine: 600ml (Voided); Total: 600ml. ko1 Outcome: 12:45 Decision to Hospitalize by Provider. sp3 15:27 Patient left the ED. aa5 Signatures: Dispatcher [employer] EDMS Lisy Marsh RN RN aa5 Deborah Topete MD MD sp3 Jen Weeks RN RN ko1 Emerald Bobby 12
--- NOTE | 2023-07-26 12:49 | RAD REPORT ---
EXAM DESCRIPTION: US - Abdomen Exam Limited - 07/26/2023 12:38 pm CLINICAL HISTORY: Elevated Bili;Abd pain COMPARISON: No comparisons FINDINGS: The gallbladder demonstrates no gallstones. No pericholecystic fluid or gallbladder wall t hickening. The common bile duct is normal measuring 4 mm. The liver demonstrates no findings of intrahepatic biliary dilatation. IMPRESSION: Unremarkable examination.
[2023-07-26] MEDS ORDERED: FUROSEMIDE 40 MG/4 ML VIAL ONE (13:18)
--- NOTE | 2023-07-26 14:17 | P.HP ---
Certification for Inpatient Patient admitted to: Observation With expected LOS: <2 Midnights Patient will require the following post-hospital care: None Practitioner: I am a practitioner with admitting privileges, knowledge of patient current condition, hospital course, and medical plan of care. Services: Services provided to patient in accordance with Admission requirements found in Title 42 Section 412.3 of the Code of Federal Regulations Patient History Date of Service: 07/26/23 Reason for admission: Dyspnea on exertion, palpitations History of Present Illness: 83-year-old male with history of hypertension, CAD with previous CABG, hyperlipidemia presents emergency department with chief complaint of dyspnea on exertion, palpitations. He reports for the last 2 to 3 weeks with exertion he develops significant dyspnea, this is completely new for him and he has not experienced any like this in the past. He also was having palpitations last n ight and felt as if his heart was racing. He was evaluated in the emergency department his EKG showed a few PVCs chest x-ray was negative for acute findings white blood cell count was 13.2 sodium 131 creatinine 1.28 BNP 1331 D-dimer ordered and pending. ED prior wishes to admit patient under observation for dyspnea on exertion, palpitations. Allergies No Known Allergies Allergy (Verified 03/03/22 16:04) Home Medications: Amlodipine Besylate 10 mg PO BEDTIME 12/19/19 Cevimeline HCl 1 tab PO BID 12/19/19 Clopidogrel Bisulfate [Plavix] 75 mg PO DAILY 12/19/19 Gabapentin 300 mg PO BID 12/19/19 Levothyroxine [Synthroid] 100 mcg PO [id number] 12/19/19 Lisinopril [Zestril] 20 mg PO DAILY 12/19/19 Mirabegron [Myrbetriq] 50 mg PO BEDTIME 12/19/19 Multivitamin [Multivitamins] 1 each PO DAILY 12/19/19 Niacin [Niacin ER] 1,000 mg PO BEDTIME 12/19/19 Omeprazole 20 mg PO DAILY 12/19/19 Simvastatin 20 mg PO BEDTIME 12/19/19 Zolpidem Tartrate [Ambien Cr] 12.5 mg PO BEDTIME 12/19/19 bisoproloL fumarate [Zebeta] 5 mg PO DAILY 12/19/19 clonazePAM [Klonopin] 1.5 tab PO BID 12/19/19 - Past Medical/Surgical History -: Hypertension -: CAD -: Hyperlipidemia -: Hypothyroidism -: CABG Psychosocial/ Personal History: Recently , lives at home - Family History Family History: Reviewed- Non-Contributory - Social History Alcohol use: No CD- Drugs: No Caffeine use: Yes Place of Residence: Home Review of Systems 10-point ROS is otherwise unremarkable Respiratory: Shortness of Breath, SOB with Excertion Physical Examination - Physical Exam General: Alert, In no apparent distress, Oriented x3 HEENT: Atraumatic, PERRLA, EOMI Neck: Supple, 2+ carotid pulse no bruit, No LAD Respiratory: Clear to auscultation bilaterally, Normal air movement Cardiovascular: Regular rate/rhythm, Normal S1 S2 Gastrointestinal: Normal bowel sounds Musculoskeletal: No tenderness Integumentary: No rashes Neurological: Normal speech, Normal strength at 5/5 x4 extr, Normal tone - Studies Laboratory Data (last 24 hrs) 07/26/23 07/26/23 07/26/23 11:25 09:15 09:15 WBC 13.20 H Hgb 14.4 Hct 42.5 Plt Count 298 PT 12.9 H INR 1.18 Sodium 131 L Potassium 4.2 BUN 23 H Creatinine 1.28 Glucose 105 Magnesium 1.7 Total Bilirubin 1.5 H AST 22 ALT 26 Alkaline Phosphatase 70 Assessment and Plan - Plan Assessment: Dyspnea on exertion Palpitations History of CAD with previous CABG Hypertension Hyperlipidemia Hypothyroidism Plan: Dyspnea on exertion Palpitations History of CAD with previous CABG Seen by cardiology in ED who feels as if this is a bit of overload/possible CHF Started on Lasix, echocardiogram ordered Will trend troponins and monitor on telemetry Which was about 20 years ago, denies heart cath since then has had stress test 1 to 2 years ago D-dimer ordered and pending, on room air Hypertension Hyperlipidemia Hypothyroidism Continue home medications when verified DVT PPX: Lovenox Code status: Full Discharge Plan: Home - Advance Directives Does patient have a Living Will: No Does patient have a Durable POA for Healthcare: No - Code Status/Comfort Care Code Status Assessed: Yes (Full code) Critical Care: No Time Spent Managing Pts Care (In Minutes): 70
[2023-07-26 16:20] VITALS: BMI 23.5
[2023-07-26 17:51] LABS: Specific Gravity 1.007 (1.005-1.030); Sqamous Epithelial None Seen /HPF (None Seen); Urine Bacteria <20 /HPF (<20); Urine Bilirubin NEGATIVE (Negative); Urine Blood Negative (Negative); Urine Clarity Clear (Clear); Urine Color Colorless (Yellow); Urine Crystals Unidentified Few /HPF (None Seen); Urine Culture Reflex Order NOT NEEDED; Urine Glucose NEGATIVE (Negative); Urine Ketones NEGATIVE (Negative); Urine Microscopic Reflex YN ORDER UMIC; Urine Nitrite NEGATIVE (Negative); Urine Protein NEGATIVE (Negative); Urine RBC <5 /HPF (None Seen); Urine Urobilinogen Normal (Normal); Urine WBC None Seen /HPF (<5); Urine pH 6.5 (5.0-7.0)
[2023-07-26] MEDS ORDERED: FAMOTIDINE 20 MG TAB PO PRN (20:01)
[2023-07-26] MEDS: CALCIUM CARBONATE CHEW 500MG TAB PO PRN (20:14)
--- NOTE | 2023-07-26 21:02 | CON ---
Date of Consultation: 07/26/2023 Reason For Consultation: Shortness of breath. History Of Present Illness: 83-year-old male, history of coronary artery disease, hypertension, dysl ipidemia, and hypothyroidism, presented to the emergency room because of shortness of breath. Has hi story of coronary artery disease, status post bypass surgery. Apparently, he went to take the trash out and pushing the trash can, he became short of breath. Could not do any physical activities anymo re due to significant shortness of breath along with palpitations. Denies having any chest pain. Up on arrival to the emergency room, he appeared to be slightly anxious from the shortness of breath. H as mild orthopnea. No lower extremity edema. No nausea, vomiting, or diarrhea. Past Medical History: As outlined above in the HPI. Medications: Refer to reconciliation sheet for detailed list. Allergies: NO KNOWN DRUG ALLERGIES. Family History: No premature coronary artery disease or cancer. Social History: Does not smoke or drink. Does not use any drugs. Review of Systems: All systems reviewed and they were negative except as mentioned in the HPI. Physical Examination: Vital Signs: Reviewed. Head and Neck: Pupils are equal, reactive to light. Intact eye movements. No JVD. No cervical lym phadenopathy. Neck is supple. Thyroid is not enlarged. Lungs: Clear to auscultation bilaterally. No rhonchi, wheezing, or crackles. No accessory muscle u se. Heart: Regular rate and rhythm. No extra sounds. Abdomen: Soft, nontender. Bowel sounds positive. No organomegaly. No masses or hernia. No rigidi ty or rebound. Extremities: No clubbing or cyanosis. Intact pulses. Skin: No rash. No nodule. Neurologic: Alert, awake, oriented x3. No acute focal deficits appreciated. Lymph Nodes: No cervical or axillary adenopathy. Investigations: BUN 23, creatinine 1.28. First troponin is negative. NT-proBNP is 1331, and his ch est x-ray is negative. Assessment And Plan: 1.Shortness of breath. This could be congestive heart failure exacerbation. Give him 1 dose of Las ix now and assess his response. If he improves, then we will continue further diuresis. Also I matthew mmend to check D-dimer. If it is elevated, then recommend CT angiogram of the lungs PE protocol. 2.Elevated NT-proBNP. He has congestive heart failure that is chronic. Start Lasix as above and mo nitor. 3.Hyponatremia. This could be due to congestive heart failure and if it improves that confirms the diagnosis of heart failure as a cause of his symptoms. Also if his D-dimer is elevated, then I will recommend CT angiogram of the lungs. SR/MODL Voice ID: [id number] Report ID: [id number]
--- NOTE | 2023-07-26 21:37 | RAD REPORT ---
EXAM DESCRIPTION: CT - Chest For Pe Angio - 07/26/2023 9:23 pm CLINICAL HISTORY: Chest pain. Dyspnea, elevated ddimer COMPARISON: Thorax Wo Con dated 11/25/2019 TECHNIQUE: CT angiogram of the pulmonary arteries was performed with MIP. All CT scans are performed using dose optimization technique as appropriate and may include automated exposure control or mA/KV adjustment according to patient size. FINDINGS: Bilateral pulmonary thromboembolism is seen involving the left and right main pulmonary ar terial trunks and distal vessels. Moderate RV strain pattern. No acute aortic finding demonstrated. Diffuse COPD with linear atelectasis in both lung bases. No significant pericardial or pleural fluid. No concerning bony finding. IMPRESSION: Positive for bilateral thromboembolism seen involving both the left and right main pulmo nary arterial tree and distal branches. Moderate RV strain pattern. Prominent diffuse COPD. The patient's nurse Jing on the 2nd floor was notified on 07/26/23 at 9:30 pm by telephone.
[2023-07-26] MEDS ORDERED: clonazePAM 1 MG TAB PO PRN (22:05)
[2023-07-26] MEDS: ENOXAPARIN 80 MG/0.8 ML SQ SCH (22:11)
[2023-07-27 04:08] LABS: Absolute Basophils 0.1 K/uL (0-0.5); Absolute Eosinophils 0.1 K/uL (0-0.5); Absolute Lymphocytes (CBC) 1.4 K/uL (0.7-4.9); Absolute Monocytes 1.5 K/uL (0.1-1.3); Absolute Neutrophil 9.8 K/uL (1.8-8.0); Basophils % 0.5 % (0-1.3); Eosinophils % 0.5 % (0-4.4); Hematocrit 42.4 % (39.6-49.0); Hemoglobin 14.3 g/dL (13.6-17.9); Lymphocytes % 10.6 % (15.3-44.8); MCH 32.9 pg (27.0-35.0); MCHC 33.8 g/dL (32.0-36.0); MCV 97.3 fL (80-100); MPV 7.6 fL (7.6-11.3); Neutrophils % 76.4 % (41.7-73.7); Platelets 284 thou/uL (152-406); RBC Red Blood Cell Count 4.35 M/uL (4.33-5.43); Red Cell Distribution Width 13.7 % (12.1-15.2)
[2023-07-27 04:13] LABS: Albumin 3.2 g/dL (3.4-5.0); Albumin/Globulin Ratio 0.8 (1.1-1.8); Anion Gap 12.8 mEq/L (5.0-15.0); Bilirubin Total 1.3 mg/dL (0.2-1.0); Globulin 4.1 g/dL (2.3-3.5); Potassium 3.8 mEq/L (3.5-5.1); Protein, Total 7.3 g/dL (6.4-8.2)
[2023-07-27] MEDS: ONDANSETRON 4 MG/2 ML VIAL IV PRN (08:54)
[2023-07-27] MEDS: POTASSIUM 25 MEQ EFFERV TAB PO ONE (08:56)
[2023-07-27] MEDS: GABAPENTIN 300 MG CAP PO SCH (08:58)
[2023-07-27] MEDS ORDERED: ENOXAPARIN 40 MG/0.4 ML SQ SCH (09:00)
[2023-07-27] MEDS ORDERED: DOCUSATE NA 100 MG CAP PO PRN (09:08)
[2023-07-27] MEDS: DOCUSATE NA 100 MG CAP PO ONE (10:02)
[2023-07-27] MEDS: PROMETHAZINE INJ 25 MG/ML AMP IV ONE (10:49)
--- NOTE | 2023-07-27 13:16 | P.PN ---
Date of Service: 07/27/23 Subjective: Still with some dyspnea this morning Desatted to 88/89 on room air Now on nasal cannula 2L ROS: 10 point ROS as noted above, otherwise negative Physical exam GEN: Alert, oriented, NAD HEENT: Normal conjunctiva, sclera anicteric CV: Regular rate and rhythm, no edema Pulm: Nonlabored respirations on nasal cannula, mild tachypnea ABD: Soft, nontender, nondistended MSK: No joint tenderness Integumentary: No rashes Neuro: Normal speech, normal affect Vitals reviewed Assessment: Massive bilateral PE with right heart strain Dyspnea on exertion Palpitations History of CAD with previous CABG Hypertension Hyperlipidemia Hypothyroidism Plan: Massive bilateral PE with right heart strain Dyspnea on exertion Palpitations History of CAD with previous CABG D-dimer performed overnight was very elevated CTA of the chest was performed which showed bilateral thromboembolism seen involving both the left and right main pulmonary arterial tree and distal branches with moderate RV strain pattern. Patient started on therapeutic Lovenox overnight Echocardiogram performed today and read by cardiology shows severely dilated right ventricle, severe tricuspid regurgitation cardiology recommends transfer for thrombectomy evaluation Pesi score places patient at high risk category given his age, gender, oxygen requirement Transfer initiated to [facility] for possible thrombectomy Hypertension Hyperlipidemia Hypothyroidism Continue home medications when verified DVT PPX: Therapeutic Lovenox Code status: Full Discharge Plan: Transfer higher level of care possible thrombectomy Time Spent Managing Pts Care (In Minutes): 35
--- NOTE | 2023-07-27 13:25 | ECHO ---
HEIGHT: 5 ft 9 in WEIGHT: 159 lb 1.6 oz DATE OF STUDY: 07/27/[address]: Dallas Walden NP 2-DIMENSIONAL: YES M.MODE: YES DOPPLER: YES COLOR FLOW: YES TDS: YES PORTABLE: YES DEFINITY: BUBBLE STUDY: DIAGNOSIS: DYSPNEA ON EXERTION, PALPITATIONS CARDIAC HISTORY: CATHERIZATION: YES SURGERY: YES PROSTHETIC VALVE: NO PACEMAKER: NO MEASUREMENTS (cm) DIASTOLIC (NORMALS) SYSTOLIC (NORMALS) IVSd 1.0 (0.6-1.2) LA Diam 2.8 (1.9-4.0) LVEF 55% LVIDd 4.0 (3.5-5.7) LVIDs 3.1 (2.0-3.5) %FS 22% LVPWd 1.1 (0.6-1.2) Ao Diam 3.5 (2.0-3.7) 2 DIMENSIONAL ASSESSMENT: RIGHT ATRIUM: NORMAL LEFT ATRIUM: NORMAL RIGHT VENTRICLE: LEFT VENTRICLE: NORMAL TRICUSPID VALVE: SEVERE TRICUSPID REGURGITATION MITRAL VALVE: NORMAL PULMONIC VALVE: MILD PULMONIC ISIFICENCY AORTIC VALVE: NORMAL PERICARDIAL EFFUSION: NONE AORTIC ROOT: NORMAL LEFT VENTRICULAR WALL MOTION: NORMAL DOPPLER/COLOR FLOW: SEE BELOW COMMENTS: 1. VERY POOR STUDY 2. LEFT VENTRICULAR EJECTION FRACTION APPEARS NORMAL 3. SEVERE TRICUSPID REGURGITATION 4. 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 DIASTAL RIGHT VENTRICLE WITH BORDERLINE FUNCTION SUGGESTIVE OF STRAIN. TECHNOLOGIST: DIAZ SPARKS
[2023-07-27 13:30] VITALS: BP 151/70; TEMP 97.5
--- NOTE | 2023-07-27 15:59 | P.DS ---
Admission Date: 07/27/23 Discharge Date: 07/27/23 Disposition: TRANSFER TO [facility] Discharge Condition: SERIOUS Reason for Admission: Dyspnea on exertion, palpitations Consultations: Cardiology-Dr. Nuno Brief History of Present Illness: 83-year-old male with history of hypertension, CAD with previous CABG, hyperlipidemia presents emergency department with chief complaint of dyspnea on exertion, palpitations. He reports for the last 2 to 3 weeks with exertion he develops significant dyspnea, this is completely new for him and he has not experienced any like this in the past. He also was having palpitations last night and felt as if his heart was racing. He was evaluated in the emergency department his EKG showed a few PVCs chest x-ray was negative for acute findings white blood cell count was 13.2 sodium 131 creatinine 1.28 BNP 1331 D-dimer ordered and pending. ED prior wishes to admit patient under observation for dyspnea on exertion, palpitations. Hospital Course: Assessment: Massive bilateral PE with right heart strain Dyspnea on exertion Palpitations History of CAD with previous CABG Hypertension Hyperlipidemia Hypothyroidism Patient was admitted to the hospital for dyspnea on exertion, he is found to have bilateral pulmonary embolism with significant right heart strain. Patient was seen by cardiology who recommended transfer for higher level of care with possible thrombectomy or catheter directed therapy. Patient was accepted to [facility] for further management Vital Signs/Physical Exam: Temp Pulse Resp BP Pulse Ox 97.5 F 98 H 20 151/70 H 99 07/27/23 11:00 07/27/23 11:00 07/27/23 11:00 07/27/23 11:00 07/27/23 11:00 General: Alert, In no apparent distress, Oriented x3 HEENT: Atraumatic, PERRLA Neck: Supple, JVD not distended Respiratory: Clear to auscultation bilaterally, Normal air movement, Other (on NC 2L) Cardiovascular: Regular rate/rhythm, Normal S1 S2 Gastrointestinal: Normal bowel sounds Musculoskeletal: No tenderness Integumentary: No rashes Neurological: Normal speech, Normal tone Laboratory Data at Discharge: WBC 12.80 thou/uL (4.3-10.9) H 07/27/23 03:24 Hgb 14.3 g/dL (13.6-17.9) 07/27/23 03:24 Hct 42.4 % (39.6-49.0) 07/27/23 03:24 Plt Count 284 thou/uL (152-406) 07/27/23 03:24 PT 12.9 SECONDS (9.4-12.5) H 07/26/23 09:15 INR 1.18 07/26/23 09:15 Sodium 129 mEq/L (136-145) L 07/27/23 03:24 Potassium 3.8 mEq/L (3.5-5.1) 07/27/23 03:24 BUN 24 mg/dL (7-18) H 07/27/23 03:24 Creatinine 1.09 mg/dL (0.70-1.30) 07/27/23 03:24 Glucose 120 mg/dL (74-106) H 07/27/23 03:24 Magnesium 1.7 mg/dL (1.6-2.4) 07/26/23 11:25 Total Bilirubin 1.3 mg/dL (0.2-1.0) H 07/27/23 03:24 AST 22 U/L (15-37) 07/27/23 03:24 ALT 28 U/L (16-61) 07/27/23 03:24 Alkaline Phosphatase 72 U/L (45-117) 07/27/23 03:24 Triglycerides 116 mg/dL (<150) 07/27/23 03:24 Cholesterol 103 mg/dL (<200) 07/27/23 03:24 HDL Cholesterol 36 mg/dL (40-60) L 07/27/23 03:24 Cholesterol/HDL Ratio 2.86 07/27/23 03:24 Home Medications: Amlodipine Besylate 10 mg PO BEDTIME 12/19/19 Cevimeline HCl 1 tab PO BID 12/19/19 Clopidogrel Bisulfate [Plavix] 75 mg PO DAILY 12/19/19 Gabapentin 300 mg PO BID 12/19/19 Levothyroxine [Synthroid] 100 mcg PO [id number] 12/19/19 Lisinopril [Zestril] 20 mg PO DAILY 12/19/19 Mirabegron [Myrbetriq] 50 mg PO BEDTIME 12/19/19 Multivitamin [Multivitamins] 1 each PO DAILY 12/19/19 Niacin [Niacin ER] 1,000 mg PO BEDTIME 12/19/19 Simvastatin 20 mg PO BEDTIME 12/19/19 Zolpidem Tartrate [Ambien Cr] 12.5 mg PO BEDTIME 12/19/19 bisoproloL fumarate [Zebeta] 5 mg PO DAILY 12/19/19 clonazePAM [Klonopin] 1 mg PO BID 12/19/19 Physician Discharge Instructions: Patient was admitted to the hospital for dyspnea on exertion, he is found to have bilateral pulmonary embolism with significant right heart strain. Patient was seen by cardiology who recommended transfer for higher level of care with possible thrombectomy or catheter directed therapy. Patient was accepted to [facility] for further management Diet: NPO Activity: Bedrest Followup: Ingris Neff DO, DO [Primary Care Provider] - Time spent managing pt's care (in minutes): 50
--- NOTE | 2023-07-27 16:11 | PN ---
Date of Progress Note: 07/27/2023 Subjective: Seen by bedside. Mild shortness of breath is present. Review of Systems: No chest pain. Shortness of breath is present. No nausea, vomiting, or diarrhea. No abdominal pain . No dysuria, polyuria, or urinary urgency. No skin rash or headache. All other systems were revie wed, they were negative. Objective: Vital Signs: Reviewed. Head and Neck: Pupils are equal, reactive to light. Intact eye movements. No JVD. No cervical lym phadenopathy. Neck is supple. Thyroid is not enlarged. Lungs: Clear to auscultation bilaterally. No rhonchi, wheezing, or crackles. No accessory muscle u se. Heart: Regular rate and rhythm. No extra sounds. Abdomen: Soft, nontender. Bowel sounds positive. No organomegaly. No masses or hernia. No rigidi ty or rebound. Extremities: No edema, clubbing, or cyanosis. Intact pulses. Skin: No rash. No nodule. Neurologic: Alert, awake, oriented x3. No acute focal deficits appreciated. Investigations: CT angiogram of the lungs showed massive pulmonary embolism with RV strain. On echo , there was dilation in the RV with severe pulmonary hypertension and severe tricuspid valve regurgit ation, and the hemoglobin is 14.3, and the BUN is 24, creatinine 1.09. Assessment And Recommendations: 1.Massive pulmonary embolism with RV strain. Recommend transfer to the [facility] for thrombect kain and continue anticoagulation with Lovenox 1 mg/kg subcu q.12 hours. 2.Dyslipidemia. Continue Lipitor at 20 mg q.h.s. 3.Hypertension. Blood pressure is acceptable. Continue current management. 4.Hyponatremia. Discontinue Lasix, and plan as above. SR/MODL Voice ID: [id number] Report ID: [id number]
[2023-07-27 16:13] VITALS: O2SAT 98
[2023-07-27] MEDS ORDERED: AMLODIPINE 10 MG TAB PO SCH (21:00)
[2023-07-27] MEDS ORDERED: NIACIN 500 MG SR TAB PO SCH (21:00)
[2023-07-27] MEDS ORDERED: ATORVASTATIN 20 MG TAB PO SCH (21:00)
--- NOTE | 2023-07-29 13:34 | EKG ---
Test Date: 2023-07-26 Test Time: 09:08:44 [employer]: JAMES MEASUREMENT RESULTS: Intervals: Rate: 73 MO: 202 QRSD: 138 QT: 454 QTc: 500 [place]: P: 46 MO: 202 QRS: 64 T: 15 INTERPRETIVE STATEMENTS: Sinus rhythm with occasional premature ventricular complexes Right bundle branch block Abnormal ECG Compared to ECG 03/03/2022 16:17:14 Ventricular premature complex(es) now present Sinus bradycardia no longer present First degree AV block no longer present Myocardial infarct finding no longer present Electronically Signed On 07-29-23 13:28:36 CDT by Omar Nuno
== END 2023-07-27 16:58 | disposition short-term general hospital (02) | DRG 175 ==
LOC: ER 09:04 → ERHOLD 12:55 → 2ND 15:13 → OBSVTOIN 07-27 14:02
PROVIDERS: ADMIT Hospitalist; ATTEND Hospitalist
DX: I26.09 Other pulmonary embolism with acute cor pulmonale (principal); I50.33 Acute on chronic diastolic (congestive) heart failure; E87.1 Hypo-osmolality and hyponatremia; I11.0 Hypertensive heart disease with heart failure; E03.9 Hypothyroidism, unspecified; E78.5 Hyperlipidemia, unspecified; I25.10 Atherosclerotic heart disease of native coronary artery without angina pectoris; R00.2 Palpitations; Z95.5 Presence of coronary angioplasty implant and graft
CPT/HCPCS: 36415; 71045; 71275; 76705; 80048; 80053; 80061; 80076; 81001; 83735; 83880; 84443; 84484; 85025; 85379; 85610; 93005; 93306; 96374; 99285; G0378; J1940; J2405; J2550; Q9967

== ENCOUNTER 2023-08-15 13:45 | Emergency (ER) | payer OTHER ==
[2023-08-15 14:18] LABS: Absolute Basophils 0.1 K/uL (0-0.5); Absolute Eosinophils 0.2 K/uL (0-0.5); Absolute Lymphocytes (CBC) 1.2 K/uL (0.7-4.9); Absolute Monocytes 0.9 K/uL (0.1-1.3); Absolute Neutrophil 5.9 K/uL (1.8-8.0); Basophils % 0.9 % (0-1.3); Eosinophils % 2.8 % (0-4.4); Hemoglobin 10.4 g/dL (13.6-17.9); Lymphocytes % 14.4 % (15.3-44.8); MCH 31.8 pg (27.0-35.0); MCHC 32.7 g/dL (32.0-36.0); MCV 97.3 fL (80-100); MPV 6.7 fL (7.6-11.3); Neutrophils % 70.9 % (41.7-73.7); Platelets 435 thou/uL (152-406); RBC Red Blood Cell Count 3.28 M/uL (4.33-5.43); Red Cell Distribution Width 13.8 % (12.1-15.2)
[2023-08-15] MEDS ORDERED: NA CHLORIDE 0.9% 1,000 ML ONE (14:27)
[2023-08-15 14:38] LABS: Anion Gap 6.8 mEq/L (5.0-15.0); Potassium 3.8 mEq/L (3.5-5.1); Troponin High Sensitivity 17.7 pg/mL (<58.9)
--- NOTE | 2023-08-15 14:51 | RAD REPORT ---
EXAM DESCRIPTION: RAD - Chest Single View - 08/15/2023 2:40 pm CLINICAL HISTORY: DYSPNEA COMPARISON: Chest Single View dated 08/05/2023; Chest Single View dated 07/26/2023; Chest Pa And Lat ( 2 Views) dated 03/03/2022; Chest Pa And Lat (2 Views) dated 12/19/2019 FINDINGS: Lines: None. Lungs: No evidence of edema or pneumonia. Pleural: No significant pleural effusions or pneumothorax. Cardiac: The heart size is within normal limits. Mediastinum: Within normal limits. Bones: No acute fractures. Sternotomy. Other: None IMPRESSION: No acute cardiopulmonary disease.
--- NOTE | 2023-08-15 16:38 | EDPHYS ---
Physician Documentation [facility] Name: Arnold Roberts Age: 83 yrs Sex: Male : 1940 Arrival Date: 08/15/2023 Time: 13:45 Bed 7 Private MD: ED Physician Antonio Grove HPI: 08/14 15:59 This 83 yrs old Male presents to ER via EMS with complaints of Dizziness. rn 15:59 The patient presents with dizziness, feeling faint, generalized weakness, rn lightheadedness. Onset: The symptoms/episode began/occurred yesterday. Modifying factors: The symptoms are alleviated by lying down, the symptoms are aggravated by standing up, changing position. Severity of symptoms: At their worst the symptoms were moderate in the emergency department the symptoms have improved. The patient has not experienced similar symptoms in the past. Patient reports feeling dizzy and lightheaded for the last 2 days, no power or electricity at home. Feels weak. No recent illness. No fever. No vomiting or diarrhea. Reports drinking water but cannot stay cool. Denies chest pain or abdominal pain. No shortness of breath. Does not feel ill. Given IV fluids by EMS with improvement of symptoms.. Historical: - Allergies: 14:12 No Known Allergies; iw - PMHx: 14:12 coronary atherosclerosis; High Cholesterol; Hypertension; Thyroid problem; iw - PSHx: 14:12 Coronary Angioplasty; Coronary artery bypass graft; Stented artery; iw - Immunization history:: Adult Immunizations up to date. - Infectious Disease History:: Denies. - Social history:: Smoking status: Patient denies any tobacco usage or history of. - Family history:: not pertinent. - Hospitalizations: : No recent hospitalization is reported. ROS: 15:59 Constitutional: Negative for fever, chills, and weight loss, Eyes: Negative for injury, rn pain, redness, and discharge, Neck: Negative for injury, pain, and swelling, Cardiovascular: Negative for chest pain, palpitations, and edema, Respiratory: Negative for shortness of breath, cough, wheezing, and pleuritic chest pain, Abdomen/GI: Negative for abdominal pain, nausea, vomiting, diarrhea, and constipation, Back: Negative for injury and pain, MS/Extremity: Negative for injury and deformity, Skin: Negative for injury, rash, and discoloration, Neuro: Negative for headache, numbness, tingling, and seizure, Exam: 15:59 Constitutional: This is a well developed, well nourished patient who is awake, alert, rn and in no acute distress. Head/Face: Normocephalic, atraumatic. ENT: Dry mucous membranes Cardiovascular: Regular rate and rhythm. No pulse deficits. Respiratory: No increased work of breathing, no retractions or nasal flaring. Abdomen/GI: Soft, non-tender MS/ Extremity: Pulses equal, no cyanosis. Neurovascular intact. Full, normal range of motion. Equal circumference. Neuro: Awake and alert, GCS 15, oriented to person, place, time, and situation. Cranial nerves II-XII grossly intact. Motor strength 4/5 in all extremities. Sensory grossly intact. Vital Signs: 14:11 BP 121 / 61; Pulse 69; Resp 16; Temp 97.3; Pulse Ox 100% on R/A; Weight 70.31 kg; iw Height 5 ft. 9 in. ; Pain 0/10; 14:11 Body Mass Index 22.89 (70.31 kg, 175.26 cm) iw 14:11 Pain Scale: Adult iw MDM: 13:48 Patient medically screened. rn 16:36 Differential diagnosis: cardiac arrhythmia, generalized weakness, idiopathic dizziness, rn near-syncope. Data reviewed: vital signs, nurses notes, lab test result(s), EKG, and as a result, I will discharge patient. Counseling: I had a detailed discussion with the patient and/or guardian regarding the historical points, exam findings, and any diagnostic results supporting the discharge/admit diagnosis, lab results, the need for outpatient follow up, to return to the emergency department if symptoms worsen or persist or if there are any questions or concerns that arise at home. Special discussion: I discussed with the patient/guardian in detail that at this point there is no indication for admission to the hospital. It is understood, however, that if the symptoms persist or worsen the patient needs to return immediately for re-evaluation. 16:36 ED course: Patient feels better, eating, stable vital signs. No acute findings and rn workup. I have personally reviewed all of the results, including but not limited to blood tests deemed necessary to safely discharge this patient at this time. All results given to and printed out for patient. I personally went over all the results with the patient and answered all questions. Patient will follow-up with PCP and or specialist as discussed. Return precautions given and understood.. 08/14 13:59 Order name: CBC with Diff; Complete Time: 14:52 rn 08/14 13:59 Order name: Basic Metabolic Panel; Complete Time: 14:52 rn 08/14 13:59 Order name: CK; Complete Time: 14:52 rn 08/14 13:59 Order name: BNP; Complete Time: 14:52 rn 08/14 13:59 Order name: Troponin High Sensitivity; Complete Time: 14:52 rn 08/14 14:17 Order name: Glucose, Ancillary Testing; Complete Time: 14:52 EDMS 08/14 13:59 Order name: XRAY Chest (1 view); Complete Time: 15:04 rn 08/14 13:59 Order name: IV Start; Complete Time: 14:31 rn 08/14 13:59 Order name: Cardiac monitoring; Complete Time: 14:30 rn 08/14 13:59 Order name: O2 Sat Monitoring; Complete Time: 14:30 rn 08/14 14:00 Order name: Glucose Level; Complete Time: 14:12 rn Administered Medications: 15:18 Drug: NS 0.9% IV 1000 ml IV at 1000 ml once Route: IV; Rate: 1000 ml; Site: right iw antecubital; Disposition Summary: 08/15/23 16:37 Discharge Ordered Notes: Location: Home rn Problem: new rn Symptoms: have improved rn Condition: Stable rn Diagnosis - Heat exhaustion, unspecified rn - Muscle weakness (generalized) rn Followup: rn - With: Private Physician - When: As needed - Reason: Recheck today's complaints, Re-evaluation by your physician Discharge Instructions: - Discharge Summary Sheet rn - Weakness rn - Heat Exhaustion rn Forms: - Medication Reconciliation Form rn - 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
--- NOTE | 2023-08-15 16:38 | ER ---
Nurse's Notes [facility] Name: Arnold Roberts Age: 83 yrs Sex: Male : 1940 Arrival Date: 08/15/2023 Time: 13:45 Bed 7 Private MD: Diagnosis: Heat exhaustion, unspecified;Muscle weakness (generalized) Presentation: 08/14 13:54 Chief complaint: EMS states: was d/c from the hospital on Sunday , has been at home iw with no electricity, feeling dizzy and weak. Coronavirus screen: At this time, the client does not indicate any symptoms associated with coronavirus-19. Ebola Screen: No symptoms or risks identified at this time. Initial Sepsis Screen: Does the patient meet any 2 criteria? No. Patient's initial sepsis screen is negative. Does the patient have a suspected source of infection? No. Patient's initial sepsis screen is negative. Risk Assessment: Do you want to hurt yourself or someone else? Patient reports no desire to harm self or others. Onset of symptoms was August 15, 2023. 13:54 Acuity: ORTIZ 3 iw 13:54 Method Of Arrival: EMS: [facility] iw Historical: - Allergies: 14:12 No Known Allergies; iw - PMHx: 14:12 coronary atherosclerosis; High Cholesterol; Hypertension; Thyroid problem; iw - PSHx: 14:12 Coronary Angioplasty; Coronary artery bypass graft; Stented artery; iw - Immunization history:: Adult Immunizations up to date. - Infectious Disease History:: Denies. - Social history:: Smoking status: Patient denies any tobacco usage or history of. - Family history:: not pertinent. - Hospitalizations: : No recent hospitalization is reported. Vital Signs: 14:11 BP 121 / 61; Pulse 69; Resp 16; Temp 97.3; Pulse Ox 100% on R/A; Weight 70.31 kg; iw Height 5 ft. 9 in. ; Pain 0/10; 14:11 Body Mass Index 22.89 (70.31 kg, 175.26 cm) iw 14:11 Pain Scale: Adult iw ED Course: 13:47 Patient arrived in ED. iw 13:48 Antonio Grove MD is Attending Physician. rn 13:54 Sara Chen RN is Primary Nurse. iw 13:56 Triage completed. iw 14:12 Arm band placed on. iw 14:41 XRAY Chest (1 view) In Process Unspecified. EDMS Administered Medications: 15:18 Drug: NS 0.9% IV 1000 ml IV at 1000 ml once Route: IV; Rate: 1000 ml; Site: right iw antecubital; Outcome: 16:37 Discharge ordered by . rn 17:36 Patient left the ED. iw Signatures: Dispatcher [employer] EDMS Sara Chen RN RN iw Antonio Grove MD MD rn
[2023-08-15 22:33] VITALS: BP 121/61; TEMP 97.3; O2SAT 100
== END 2023-08-15 17:36 | disposition home or self-care (01) ==
LOC: ER 13:45
DX: T67.5XXA Heat exhaustion, unspecified, initial encounter (principal); M62.81 Muscle weakness (generalized); Z95.1 Presence of aortocoronary bypass graft
CPT/HCPCS: 85025; 80048; 36415; 82550; 82947; 84484; 83880; 71045; 99284; J7030

== ENCOUNTER 2023-09-07 10:05 | Emergency (ER) | payer OTHER ==
--- NOTE | 2023-09-07 10:57 | RAD REPORT ---
EXAM DESCRIPTION: RAD - Chest Single View - 09/07/2023 10:51 am CLINICAL HISTORY: weakness Chest pain. COMPARISON: Chest Single View dated 09/03/2023; Chest Single View dated 08/15/2023; Chest Single View dated 08/05/2023; Chest Single View dated 07/26/2023 FINDINGS: Portable technique limits examination quality. Mild interstitial edema. Small bilateral pleural effusions The heart is normal in size. No displaced fractures.Sternotomy wires. IMPRESSION: Mild CHF
[2023-09-07 11:18] LABS: Absolute Basophils 0.1 K/uL (0-0.5); Absolute Eosinophils 0.2 K/uL (0-0.5); Absolute Lymphocytes (CBC) 1.3 K/uL (0.7-4.9); Absolute Neutrophil 5.9 K/uL (1.8-8.0); Basophils % 0.6 % (0-1.3); Eosinophils % 2.3 % (0-4.4); Hematocrit 36.9 % (39.6-49.0); Hemoglobin 12.1 g/dL (13.6-17.9); Lymphocytes % 15.4 % (15.3-44.8); MCH 31.6 pg (27.0-35.0); MCHC 32.7 g/dL (32.0-36.0); MCV 96.6 fL (80-100); MPV 7.4 fL (7.6-11.3); Neutrophils % 69.7 % (41.7-73.7); Platelets 294 thou/uL (152-406); RBC Red Blood Cell Count 3.82 M/uL (4.33-5.43); Red Cell Distribution Width 13.8 % (12.1-15.2)
[2023-09-07 11:37] LABS: Albumin 3.1 g/dL (3.4-5.0); Albumin/Globulin Ratio 0.9 (1.1-1.8); Anion Gap 9.9 mEq/L (5.0-15.0); Bilirubin Total 0.4 mg/dL (0.2-1.0); Globulin 3.5 g/dL (2.3-3.5); Magnesium 1.8 mg/dL (1.6-2.4); Potassium 3.9 mEq/L (3.5-5.1); Protein, Total 6.6 g/dL (6.4-8.2)
[2023-09-07 13:19] LABS: Specific Gravity 1.014 (1.005-1.030); Sqamous Epithelial None Seen /HPF (None Seen); Urine Bacteria None Seen /HPF (<20); Urine Bilirubin NEGATIVE (Negative); Urine Blood Negative (Negative); Urine Clarity Clear (Clear); Urine Color Light-Yellow (Yellow); Urine Culture Reflex Order NOT NEEDED; Urine Glucose NEGATIVE (Negative); Urine Ketones NEGATIVE (Negative); Urine Microscopic Reflex YN ORDER UMIC; Urine Nitrite NEGATIVE (Negative); Urine Protein NEGATIVE (Negative); Urine RBC <5 /HPF (None Seen); Urine Urobilinogen Normal (Normal); Urine WBC <5 /HPF (<5)
--- NOTE | 2023-09-07 13:45 | ER ---
Nurse's Notes [facility] Name: Arnold Roberts Age: 83 yrs Sex: Male : 1940 Arrival Date: 09/07/2023 Time: 10:05 Bed 2 Private MD: Diagnosis: Weakness;Anxiety Presentation: 09/06 10:10 Chief complaint: EMS states: GEN WEAKNESS AND DIZZINESS, H/O SAME WITH LOW SODIUM. bp Coronavirus screen: At this time, the client does not indicate any symptoms associated with coronavirus-19. Ebola Screen: No symptoms or risks identified at this time. Initial Sepsis Screen: Does the patient meet any 2 criteria? No. Patient's initial sepsis screen is negative. Does the patient have a suspected source of infection? No. Patient's initial sepsis screen is negative. Risk Assessment: Do you want to hurt yourself or someone else? Patient reports no desire to harm self or others. Onset of symptoms is unknown. Care prior to arrival: Medication(s) given: Normal saline infusion, 500 mL, IV initiated. 20 GA, in the right forearm, Glucose check: 128. 10:10 Method Of Arrival: EMS: [facility] bp 10:10 Acuity: ORTIZ 3 bp Triage Assessment: 10:11 General: Appears in no apparent distress. Behavior is calm, cooperative, appropriate bp for age. Pain: Denies pain. Neuro: Reports dizziness, weakness in GENERALIZED. Historical: - Allergies: 10:11 No Known Allergies; bp - PMHx: 10:11 coronary atherosclerosis; High Cholesterol; Hypertension; Thyroid problem; bp - PSHx: 10:11 Coronary Angioplasty; Coronary artery bypass graft; Stented artery; bp - Immunization history:: Adult Immunizations up to date. - Infectious Disease History:: Denies. - Social history:: Smoking status: Patient denies any tobacco usage or history of. Screenin:12 [facility] ED Fall Risk Assessment (Adult) History of falling in the last 3 months, bp including since admission No falls in past 3 months (0 pts) Confusion or Disorientation No (0 pts) Intoxicated or Sedated No (0 pts) Impaired Gait Yes (1 pt) Mobility Assist Device Used No (0 pt) Altered Elimination No (0 pt) Score/Fall Risk Level 0 - 2 = Low Risk Oriented to surroundings. Abuse screen: Denies threats or abuse. Denies injuries from another. Nutritional screening: No deficits noted. Tuberculosis screening: No symptoms or risk factors identified. Assessment: 10:12 General: Appears in no apparent distress. Behavior is calm, cooperative, appropriate bp for age. 11:19 Reassessment: Patient appears in no apparent distress at this time. Patient is alert, bp oriented x 3, equal unlabored respirations, skin warm/dry/pink. 13:25 Reassessment: Patient appears in no apparent distress at this time. Patient is alert, bp oriented x 3, equal unlabored respirations, skin warm/dry/pink. Vital Signs: 10:10 BP 132 / 75; Pulse 68; Resp 16; Temp 98; Pulse Ox 99% ; bp 11:19 BP 144 / 76; Pulse 65; Resp 17; Pulse Ox 100% ; bp 13:24 BP 146 / 76; Pulse 68; Resp 17; Pulse Ox 100% ; bp ED Course: 10:09 Patient arrived in ED. 10:09 Juan Ortiz, RN is Primary Nurse. bp 10:11 Triage completed. bp 10:11 Arm band placed on. bp 10:12 Liyah Dumas MD is Attending Physician. sd2 10:12 Patient has correct armband on for positive identification. bp 10:12 Maintain EMS IV. Dressing intact. Good blood return noted. Site clean \T\ dry. Gauge \T\ bp site: 20 R FA. 10:53 XRAY Chest (1 view) In Process Unspecified. EDMS 10:56 Initial lab(s) drawn, by me, sent to lab. bp 14:06 No provider procedures requiring assistance completed. IV discontinued, intact, bp bleeding controlled, No redness/swelling at site. Pressure dressing applied. Administered Medications: No medications were administered Medication: 10:12 VIS not applicable for this client. bp Outcome: 13:44 Discharge ordered by . sd2 14:06 Discharged to home via wheelchair, with family, bp 14:06 Condition: stable 14:06 Discharge instructions given to patient, Instructed on discharge instructions, follow up and referral plans. Demonstrated understanding of instructions, follow-up care, 14:06 Patient left the ED. bp Signatures: Dispatcher [employer] EDTX Shyla Lloyd RN RN Diana, Juan, RN RN bp Piter, Liyah, MD MD sd2
--- NOTE | 2023-09-07 13:45 | EDPHYS ---
Physician Documentation [facility] Name: Arnold Roberts Age: 83 yrs Sex: Male : 1940 Arrival Date: 09/07/2023 Time: 10:05 Bed 2 Private MD: ED Physician Liyah Dumas HPI: 09/06 10:37 This 83 yrs old Male presents to ER via EMS with complaints of General Weakness, sd2 Dizziness. 10:37 83 yo M presents via EMS with chief complaint of generalized weakness, head throbbing sd2 and ringing in both ears which he reports normally happens when his sodium is low. He has been dealing with this for the past 2 months since he was treated for a blood clot in his lungs at another hospital. He denies any associated CP, SOB, n/v/d or urinary symptoms.. Historical: - Allergies: 10:11 No Known Allergies; bp - PMHx: 10:11 coronary atherosclerosis; High Cholesterol; Hypertension; Thyroid problem; bp - PSHx: 10:11 Coronary Angioplasty; Coronary artery bypass graft; Stented artery; bp - Immunization history:: Adult Immunizations up to date. - Infectious Disease History:: Denies. - Social history:: Smoking status: Patient denies any tobacco usage or history of. ROS: 10:37 Constitutional: Negative for fever, chills, and weight loss, Eyes: Negative for injury, sd2 pain, redness, and discharge, Cardiovascular: Negative for chest pain, palpitations, and edema, Respiratory: Negative for shortness of breath, cough, wheezing. Abdomen/GI: Negative for abdominal pain, nausea, vomiting, diarrhea. MS/Extremity: Negative for injury and deformity, Skin: Negative for injury, rash, and discoloration, Neuro: Negative for headache, tinnitus, negative for numbness and tingling Exam: 10:37 Constitutional: This is a well developed, well nourished patient who is awake, alert, sd2 and in no acute distress. Head/Face: Normocephalic, atraumatic. Eyes: EOMI, normal conjunctiva bilaterally Chest/axilla: Normal chest wall appearance and motion. Nontender with no deformity. Cardiovascular: Regular rate and rhythm with a normal S1 and S2. No gallops, murmurs, or rubs. 2+ distal pulses. Respiratory: Lungs have equal breath sounds bilaterally, clear to auscultation and percussion. No rales, rhonchi or wheezes noted. No increased work of breathing, no retractions or nasal flaring. Abdomen/GI: Soft, non-tender, with normal bowel sounds. No guarding or rebound. No evidence of tenderness throughout. Skin: Warm, dry with normal turgor. Normal color with no rashes, no lesions, and no evidence of cellulitis. MS/ Extremity: Pulses equal, no cyanosis. Neurovascular intact. Full, normal range of motion. Neuro: Awake and alert, GCS 15, oriented to person, place, time, and situation. Cranial nerves II-XII grossly intact. Motor strength 5/5 in all extremities. Sensory grossly intact. Psych: Awake, alert, with orientation to person, place and time. Behavior, mood, and affect are within normal limits. 10:37 ECG was reviewed by the Attending Physician. NSR, rate 68, 1st degree AV block, no STEMI criteria Vital Signs: 10:10 BP 132 / 75; Pulse 68; Resp 16; Temp 98; Pulse Ox 99% ; bp 11:19 BP 144 / 76; Pulse 65; Resp 17; Pulse Ox 100% ; bp 13:24 BP 146 / 76; Pulse 68; Resp 17; Pulse Ox 100% ; bp MDM: 10:12 Patient medically screened. sd2 10:40 Differential diagnosis: electrolyte abnormality, ACS, anemia, dehydration, medication sd2 side effect among others. Data reviewed: vital signs, nurses notes, EMS record, lab test result(s), EKG, radiologic studies. Counseling: I had a detailed discussion with the patient and/or guardian regarding. 13:43 Care significantly affected by the following chronic conditions: Hypertension. sd2 Counseling: I had a detailed discussion with the patient and/or guardian regarding the historical points, exam findings, and any diagnostic results supporting the discharge/admit diagnosis, lab results, radiology results, the need for outpatient follow up, to return to the emergency department if symptoms worsen or persist or if there are any questions or concerns that arise at home. ED course: Labs reviewed and grossly within normal clinical limits. The patient does have mild hyponatremia but not anything significant that would require hospitalization or further emergent treatment. Troponin is negative. EKG with no ischemic changes. Urinalysis is negative for infection. Patient is feeling improved after eating and reports he has not been eating much at home. He also appears very anxious since his procedure that was done 2 months ago and continues to worry that something may be wrong or he might . I advised him to follow-up outpatient with his primary care doctor regarding his symptoms. He verbalizes understanding of discharge plan and strict return precautions.. 09/06 10:42 Order name: CBC with Diff; Complete Time: 12:15 sd2 09/06 10:42 Order name: CMP; Complete Time: 12:15 sd2 09/06 10:42 Order name: Magnesium; Complete Time: 12:15 sd2 09/06 10:42 Order name: Troponin High Sensitivity; Complete Time: 12:15 sd2 09/06 10:42 Order name: BNP; Complete Time: 12:15 sd2 09/06 10:42 Order name: Urinalysis w/ reflexes; Complete Time: 13:24 sd2 09/06 10:42 Order name: Urine Osmolality; Complete Time: 13:48 sd2 09/06 10:42 Order name: Urine Sodium Random; Complete Time: 13:48 sd2 09/06 10:42 Order name: XRAY Chest (1 view); Complete Time: 10:59 sd2 09/06 10:42 Order name: EKG - Nurse/Tech; Complete Time: 10:42 sd2 Administered Medications: No medications were administered Disposition Summary: 09/07/23 13:44 Discharge Ordered Problem: new sd2 Symptoms: have improved sd2 Condition: Stable sd2 Diagnosis - Weakness sd2 - Anxiety sd2 Followup: sd2 - With: Private Physician - When: 2 - 3 days - Reason: Recheck today's complaints, Continuance of care, Re-evaluation by your physician Discharge Instructions: - Discharge Summary Sheet sd2 - Weakness sd2 Forms: - Medication Reconciliation Form sd2 - Antibiotic Education sd2 - Prescription Opioid Use sd2 - Patient Portal Instructions sd2 - Leadership Thank You Letter sd2 Signatures: Dispatcher [employer] Juan Dove RN RN Liyah Lopez MD MD sd2 Corrections: (The following items were deleted from the chart) 13:46 13:44 Tinnitus, bilateral sd2 sd2
[2023-09-07 16:08] VITALS: TEMP 98
[2023-09-07 16:09] VITALS: O2SAT 100
[2023-09-07 16:10] VITALS: BP 146/76
--- NOTE | 2023-09-10 17:09 | EKG ---
Test Date: 2023-09-07 Test Time: 10:25:57 [place] Sander: RENAN MEASUREMENT RESULTS: Intervals: Rate: 68 [place]: 216 QRSD: 140 QT: 436 QTc: 463 [place]: P: 44 [place]: 216 QRS: 6 T: 33 INTERPRETIVE STATEMENTS: Sinus rhythm with 1st degree AV block Right bundle branch block Abnormal ECG Compared to ECG 09/03/2023 17:37:00 No significant changes Electronically Signed On 09-10-23 16:59:54 CDT by Omar Nuno
== END 2023-09-07 14:06 | disposition home or self-care (01) ==
LOC: ER 10:05
DX: R53.1 Weakness (principal); F41.9 Anxiety disorder, unspecified; Z95.1 Presence of aortocoronary bypass graft
CPT/HCPCS: 36415; 71045; 80053; 81001; 83735; 83880; 83935; 84300; 84484; 85025; 93005; 99284

== ENCOUNTER 2023-09-14 05:56 | Day surgery (SDC) | payer OTHER ==
[2023-09-13 16:43] LABS: PT Prothrombin Time 11.5 SECONDS (9.4-12.5); Protime INR 1.03
[2023-09-14] MEDS ORDERED: CEFAZOLIN SODIUM 1 GM/VIAL ONE (06:26)
[2023-09-14] MEDS ORDERED: Ringers Lactate 1,000 ML IV ONE (06:26)
[2023-09-14] MEDS ORDERED: propofoL 200 MG/20 ML VIAL IV ONE (07:13)
[2023-09-14] MEDS ORDERED: FENTANYL CITR 100 MCG/2 ML ONE (07:13)
[2023-09-14] MEDS ORDERED: ONDANSETRON 4 MG/2 ML VIAL ONE (07:13)
[2023-09-14] MEDS ORDERED: LIDOCAINE 2% MPF 5 ML VIAL ONE (07:13)
[2023-09-14] MEDS: BUPIVACA 0.5%/EPI 0.0005%/PF 30 ML VIAL SQ ONE ×3 (07:28→07:55)
[2023-09-14] MEDS: CEFAZOLIN SODIUM 1 GM/VIAL IVP ONE ×2 (07:28→07:51)
[2023-09-14] MEDS ORDERED: EPHEDRINE SULF 50 MG/ML VIAL ONE (07:52)
--- NOTE | 2023-09-14 08:21 | P.BOP ---
Preoperative diagnosis: Left shoulder ulcerated sq cell carcinoma Postoperative diagnosis: same Primary procedure: Wide excision with frozen section L shoulder ulcerated Sq cell carcinoma Estimated blood loss: <10cc Specimen: mass Findings: weel differentiated squamous cell carcioma, margins free per Dr Singh Anesthesia: General Complications: None Transferred to: Recovery Room Condition: Good
--- NOTE | 2023-09-14 09:48 | OP ---
Date of Procedure: 09/14/2023 Surgeon: Krishna Schwab MD Preoperative Diagnosis: Left shoulder ulcerated squamous cell carcinoma. Postoperative Diagnosis: Left shoulder ulcerated squamous cell carcinoma. Procedure: Wide excision with frozen section of left shoulder ulcerated squamous cell carcinoma. In cision is about 5 x 3 cm. Specimen: Mass. Findings: Well differentiated squamous cell carcinoma. Margins free per Dr. Tello. Estimated Blood Loss: Less than 10 cc. Anesthesia: General. Complications: None. Indications: This is the case of an 83-year-old patient who has Dermatology sent to us due to ulcera edmundo lesion in the left upper shoulder. They have some techniques done before, but the cancer keeps g rowing, so he was sent to us for wide resection. The benefits, alternatives, and risks of resection were fully explained, which include, but not limited to infection, bleeding, damage to adjacent struc tures, anesthesia complication, recurrence, NE, and even . He also understands this may not rel ieve any symptoms. He might need more than one surgical intervention. He understood, signed a conse nt. Description Of Procedure: The patient was brought to the operating room, placed in supine position. Anesthesia was induced without complication. The patient was placed in lateral decubitus position w ith proper protection. The area of concern was previously marked by me and the patient [facility]. So, we proceeded to prep that area in usual sterile fashion. We are trying to go by negativ e margins. There is a lesion, the ulceration, and the redness around the area, so we went around to make an incision at least 4-6 cm in size and then about 4 cm wide just to allow at least 2 cm margins . The mass was removed and the skin all the way down to fat. The mass was excised, marked for orien tation, and sent to the pathologist who confirmed the lesion within the specimen and seemed to be wel l differentiated squamous cell carcinoma with margin free of tumor. The area was irrigated. Hemosta sis was obtained. Then, we proceeded to close this in layers. Since there is a wide separation, we have to elevate a flap circumferentially and then after that, used 0 chromic to approximate the subcu taneous tissue and 2-0 nylon to approximate the skin. Sponge count and instrument count was correct. The patient tolerated the procedure well. The patient was sent to recovery in stable condition. HM/AYANA Voice ID: [id number] Report ID: [id number]
[2023-09-14] MEDS ORDERED: HYDROCODONE/APAP 7.5/325 MG TAB ONE (10:02)
[2023-09-14] MEDS: HYDROCODONE/APAP 7.5/325 MG TAB PO ONE (10:04)
[2023-09-14 12:33] VITALS: BP 133/60; TEMP 96.9; O2SAT 100
--- NOTE | 2023-09-17 06:08 | DS ---
Date of Discharge: 09/14/2023 Diagnosis: Left shoulder squamous cell carcinoma. Procedure: Wide excision with frozen section of left shoulder squamous cell carcinoma. Condition: Stable. Disposition: Home. Activity: As tolerated. No heavy lifting. Discharge Instructions: Follow up in my office in 1 week. Call for appointment [phone]. Keep area dry for 48 hours and then may shower and cover the area with antibiotic ointment and Band-Aid. YVONNE/AYANA Voice ID: [id number] Report ID: [id number]
== END 2023-09-14 10:30 | disposition home or self-care (01) ==
LOC: OR 05:56
PROVIDERS: ATTEND Surgery
PROC: 0JBF0ZZ Excision of Left Upper Arm Subcutaneous Tissue and Fascia, Open Approach (ICD-10-PCS; principal; 2023-09-14 07:30)
DX: C44.629 Squamous cell carcinoma of skin of left upper limb, including shoulder (principal)
CPT/HCPCS: 36415; 85610; 88331; 88332; 88305; 85730; 11606; J2704; J2001; J3010; J2405; J7120; J0690 ×2

== ENCOUNTER 2023-11-22 07:59 | Emergency (ER) | payer OTHER ==
[2023-11-22] MEDS ORDERED: ONDANSETRON 4 MG/2 ML VIAL ONE (08:42)
[2023-11-22] MEDS ORDERED: MORPHINE 2 MG/ML SYR ONE (08:42)
--- NOTE | 2023-11-22 09:36 | RAD REPORT ---
EXAMINATION: CT LUMBAR SPINE WITHOUT CONTRAST CLINICAL INDICATION: Male, 83 years old. LOWER BACK PAIN TECHNIQUE: Axial CT images were obtained through the lumbar spine in soft tissue and bone windows wit hout intravenous contrast. Coronal and Sagittal reformatted images were created from the data set. One or more of the following dose reduction techniques were used: Automated exposure control, adjustm ent of the mA and/ or kV according to patient size, and/or iterative reconstruction. Unless otherwise specified, incidental findings do not require dedicated imaging follow-up. COMPARISON: No prior exam. FINDINGS: For purposes of this dictation, it is assumed that there are 5 non rib-bearing lumbar type vertebrae, and the most caudal fully segmented lumbar vertebra is labeled L5. ALIGNMENT: The lumbar spine demonstrates normal alignment without scoliosis or spondylolisthesis. BONES: No acute displaced fracture or subluxation. No aggressive osseous lesions. Multilevel endplate remodeling. Mild inferior endplate compression deformity at L1, with some cortical discontinuity anteriorly. Other vertebral body heights are preserved. Mild multilevel facet remodeling DISCS: Multilevel mild posterior disc bulges most pronounced at L2-3 and L4-5, without significant ce ntral canal stenosis. Up to moderate neural foraminal narrowing bilaterally at L4-5 and mild to moderate degrees of narrowi ng at L3-4 bilaterally and to lesser degree at L2-3 and L5-S1. No visualized abnormality spinal canal SOFT TISSUE: No soft tissue abnormalities. Small diverticula of the urinary bladder, and a small uret erocele on the left. IMPRESSION: Age-indeterminate inferior endplate compression deformity with mild vertebral body height loss at L1, without significant prevertebral edema. Please correlate with any focal pain. No significant bony central canal stenosis. Mild to moderate degrees of neural foraminal narrowing at multiple levels as above. Incidentally noted small diverticula of the urinary bladder, and a small ureterocele on the left.
--- NOTE | 2023-11-22 10:35 | EDPHYS ---
Physician Documentation [facility] Name: Arnold Roberts Age: 83 yrs Sex: Male : 1940 Arrival Date: 11/22/2023 Time: 07:59 Bed 12 Private MD: ED Physician Leilani Gomes HPI: 11/21 10:38 This 83 yrs old Male presents to ER via Ambulatory with complaints of Back gb1 Injury, Fall Injury. Historical: - Allergies: 08:35 No Known Allergies; ss - Home Meds: 08:35 amlodipine oral [Active]; ss - PMHx: 08:25 coronary atherosclerosis; High Cholesterol; Hypertension; Thyroid problem; mb9 - PSHx: 08:25 Coronary Angioplasty; Coronary artery bypass graft; Stented artery; mb9 - Infectious Disease History:: Denies. - Social history:: Smoking status: Patient denies any tobacco usage or history of. Exam: 10:38 Constitutional: This is a well developed, well nourished patient who is awake, alert, gb1 and in no acute distress. Head/Face: Normocephalic, atraumatic. Eyes: Pupils equal round and reactive to light, extra-ocular motions intact. Lids and lashes normal. Conjunctiva and sclera are non-icteric and not injected. Cornea within normal limits. Periorbital areas with no swelling, redness, or edema. ENT: Nares patent. No nasal discharge, no septal abnormalities noted. Tympanic membranes are normal and external auditory canals are clear. Oropharynx with no redness, swelling, or masses, exudates, or evidence of obstruction, uvula midline. Mucous membranes moist. Neck: Trachea midline, no thyromegaly or masses palpated, and no cervical lymphadenopathy. Supple, full range of motion without nuchal rigidity, or vertebral point tenderness. No Meningismus. Chest/axilla: Normal chest wall appearance and motion. Nontender with no deformity. No lesions are appreciated. Cardiovascular: Regular rate and rhythm with a normal S1 and S2. No gallops, murmurs, or rubs. Normal PMI, no JVD. No pulse deficits. Respiratory: Lungs have equal breath sounds bilaterally, clear to auscultation and percussion. No rales, rhonchi or wheezes noted. No increased work of breathing, no retractions or nasal flaring. Abdomen/GI: Soft, non-tender, with normal bowel sounds. No distension or tympany. No guarding or rebound. No evidence of tenderness throughout. Back: Lumbarspinal midline tenderness. No costovertebral tenderness. States that decreased range of with forward bending. There is also paraspinal tenderness Skin: Warm, dry with normal turgor. Normal color with no rashes, no lesions, and no evidence of cellulitis. MS/ Extremity: Pulses equal, no cyanosis. Neurovascular intact. Full, normal range of motion. Neuro: Awake and alert, GCS 15, oriented to person, place, time, and situation. Cranial nerves II-XII grossly intact. Motor strength 5/5 in all extremities. Sensory grossly intact. Cerebellar exam normal. Normal gait. Vital Signs: 08:28 BP 161 / 95; Pulse 82; Resp 16; Temp 98; Pulse Ox 98% on R/A; mb9 09:38 BP 161 / 92; Pulse 82; Resp 16; Pulse Ox 98% on R/A; mb9 10:27 BP 159 / 90; Pulse 75; Resp 16; Pulse Ox 100% on R/A; mb9 MDM: 08:17 Medical Screening Exam initiated gb1 10:38 Differential diagnosis: Fracture Joint Injury Osteoarthritis Osteoporosis spinal gb1 injury, vertebral fracture. ED course: 83-year-old male status post ground-level fall onto his buttocks here with a L1 compression fracture of undetermined age. Patient has signs and is consistent with injury confirmed by CT of the lumbar spine. I discussed the plan of care with the patient's son by phone and the patient is clinically improved after IV pain medicine I will discharge him home with tramadol and give him the opportunity to follow-up routinely this is a nonsurgical injury. He is also neurovascularly otherwise intact. At this time no concern for cauda equina or any kind of spinal cord injury. Patient's signs of friend is here to take him home from the emergency department.. 11/21 08:33 Order name: CT Lumbar Spine Wo Con; Complete Time: 09:39 gb1 Administered Medications: 08:35 Drug: Ondansetron IVP 4 mg IVP once; over 2 minutes Route: IVP; Site: left forearm; mb9 09:35 Follow up: Response: No adverse reaction mb9 08:38 Drug: morphine IVP or IV 2 mg IVP once over 4 mins Route: IVP; Infused Over: 4 mins; mb9 Site: left forearm; 09:35 Follow up: Response: No adverse reaction mb9 Disposition Summary: 11/22/23 10:35 Discharge Ordered Notes: Location: Home gb1 Condition: Fair gb1 Diagnosis - Fall due to bumping against object gb1 - Fall on same level from slipping, tripping and stumbling with subsequent striking gb1 against object - Wedge compression fracture of first lumbar vertebra gb1 Followup: gb1 - With: Private Physician - When: - Reason: Continuance of care, Re-evaluation by your physician Discharge Instructions: - Discharge Summary Sheet gb1 - Spinal Compression Fracture gb1 Forms: - Medication Reconciliation Form gb1 - Antibiotic Education gb1 - Prescription Opioid Use gb1 - Patient Portal Instructions gb1 - Leadership Thank You Letter gb1 Prescriptions: - Tramadol 50 mg Oral Tablet - take 1 tablet ORAL route every 8 hours as needed; 12 tablet; Refills: 0, gb1 Product Selection Permitted Signatures: Dispatcher [employer] Jazmine Patel RN RN ss Wilkerson, Mary Beth, RN RN mb9 Leilani Gomes MD MD gb1
--- NOTE | 2023-11-22 10:35 | ER ---
Nurse's Notes [facility] Name: Arnold Roberts Age: 83 yrs Sex: Male : 1940 Arrival Date: 11/22/2023 Time: 07:59 Bed 12 Private MD: Diagnosis: Fall due to bumping against object;Fall on same level from slipping, tripping and stumbling with subsequent striking against object;Wedge compression fracture of first lumbar vertebra Presentation: 11/21 08:16 Chief complaint: Patient states: low back pain since falling flat onto buttocks this morning after losing balance. Coronavirus screen: Client denies travel out of the [place] in the last 14 days. Ebola Screen: Patient denies exposure to infectious person. Patient denies travel to an Ebola-affected area in the 21 days before illness onset. Initial Sepsis Screen: Does the patient meet any 2 criteria? No. Patient's initial sepsis screen is negative. Does the patient have a suspected source of infection? No. Patient's initial sepsis screen is negative. Risk Assessment: Do you want to hurt yourself or someone else? Patient reports no desire to harm self or others. Onset of symptoms was November 22, 2023. 08:16 Method Of Arrival: Ambulatory ss 08:16 Acuity: ORTIZ 3 Historical: - Allergies: 08:35 No Known Allergies; ss - Home Meds: 08:35 amlodipine oral [Active]; ss - PMHx: 08:25 coronary atherosclerosis; High Cholesterol; Hypertension; Thyroid problem; mb9 - PSHx: 08:25 Coronary Angioplasty; Coronary artery bypass graft; Stented artery; mb9 - Infectious Disease History:: Denies. - Social history:: Smoking status: Patient denies any tobacco usage or history of. Screenin:27 [facility] ED Fall Risk Assessment (Adult) History of falling in the last 3 months, mb9 including since admission Yes- fall prone (multiple falls) (3 pts) Confusion or Disorientation No (0 pts) Intoxicated or Sedated No (0 pts) Impaired Gait Yes (1 pt) Mobility Assist Device Used Yes (1 pt) Altered Elimination No (0 pt) Score/Fall Risk Level 3 or more points = High Risk Oriented to surroundings, Maintained a safe environment, Educated pt \T\ family on fall prevention, incl call for assistance when getting out of bed, Assessed \T\ reinforced patient's understanding of fall precautions, Provided non-skid footwear, Hourly rounding (assess needs \T\ fall precautionary measures) done. Abuse screen: Denies threats or abuse. Nutritional screening: No deficits noted. Tuberculosis screening: No symptoms or risk factors identified. Assessment: 08:30 General: Appears in no apparent distress. Behavior is calm, cooperative. Pain: mb9 Complains of pain in back Pain radiates to buttocks Pain currently is 8 out of 10 on a pain scale. Quality of pain is described as throbbing, Pain began suddenly. Neuro: Benítez Agitation-Sedation Scale (RASS): 0 - Alert and Calm Level of Consciousness is awake, alert, obeys commands, Oriented to person, place, time, situation, Appropriate for age. 08:30 Cardiovascular: Patient's skin is warm and dry. Respiratory: Airway is patent mb9 Respiratory effort is even, unlabored, Respiratory pattern is regular, symmetrical. GI: No signs and/or symptoms were reported involving the gastrointestinal system. : No signs and/or symptoms were reported regarding the genitourinary system. EENT: No signs and/or symptoms were reported regarding the EENT system. Derm: skin tear located to left elbow. Musculoskeletal: Range of motion: intact in all extremities. 09:36 Reassessment: No changes from previously documented assessment. Patient and/or family mb9 updated on plan of care and expected duration. Pain level reassessed. Patient is alert, oriented x 3, equal unlabored respirations, skin warm/dry/pink. Vital Signs: 08:28 BP 161 / 95; Pulse 82; Resp 16; Temp 98; Pulse Ox 98% on R/A; mb9 09:38 BP 161 / 92; Pulse 82; Resp 16; Pulse Ox 98% on R/A; mb9 10:27 BP 159 / 90; Pulse 75; Resp 16; Pulse Ox 100% on R/A; mb9 ED Course: 08:08 Patient arrived in ED. mg5 08:16 Leilani Gomes MD is Attending Physician. gb1 08:17 Lashell Snyder RN is Primary Nurse. mb9 08:25 Arm band placed on. mb9 08:28 Placed in gown. Bed in low position. Call light in reach. Side rails up X 1. Provided mb9 Education on: press call light if needing anything. Client placed on continuous cardiac and pulse oximetry monitoring. NIBP monitoring applied. 08:28 No provider procedures requiring assistance completed. mb9 08:34 Triage completed. ss 08:49 Inserted saline lock: 22 gauge in left forearm, using aseptic technique. Flushed with mb9 10 mL NS. 08:55 CT Lumbar Spine Wo Con In Process Unspecified. EDMS 10:27 IV discontinued, intact, bleeding controlled, No redness/swelling at site. Pressure mb9 dressing applied. Administered Medications: 08:35 Drug: Ondansetron IVP 4 mg IVP once; over 2 minutes Route: IVP; Site: left forearm; mb9 09:35 Follow up: Response: No adverse reaction mb9 08:38 Drug: morphine IVP or IV 2 mg IVP once over 4 mins Route: IVP; Infused Over: 4 mins; mb9 Site: left forearm; 09:35 Follow up: Response: No adverse reaction mb9 Medication: 08:28 VIS not applicable for this client. mb9 Outcome: 10:35 Discharge ordered by . abdirahman 10:53 Discharged to home via wheelchair, 10:53 Condition: good 10:53 Discharge instructions given to patient, family, friend, Instructed on discharge instructions, follow up and referral plans. Demonstrated understanding of instructions, follow-up care, 10:54 Patient left the ED. ss Signatures: Dispatcher [employer] EDMS Jazmine Villegas RN RN ss Wilkerson, Mary Beth, RN RN mbGale Bourgeois 5 Leilani Gomes MD MD gb1 Corrections: (The following items were deleted from the chart) 09:36 08:28 BP 161 / 95; Pulse 82bpm; Pulse Ox 98% RA; mb9 mb9
[2023-11-22 11:03] VITALS: TEMP 98
[2023-11-22 11:18] VITALS: BP 159/90; O2SAT 100
== END 2023-11-22 10:54 | disposition home or self-care (01) ==
LOC: ER 07:59
DX: S32.010A Wedge compression fracture of first lumbar vertebra, initial encounter for closed fracture (principal); W01.10XA Fall on same level from slipping, tripping and stumbling with subsequent striking against unspecified object, initial encounter; I10 Essential (primary) hypertension; Z95.1 Presence of aortocoronary bypass graft
CPT/HCPCS: 72131; 96375; 96374; 99284; J2270; J2405

== ENCOUNTER 2023-11-27 10:43 | Emergency (ER) | payer OTHER ==
--- NOTE | 2023-11-27 12:12 | RAD REPORT ---
EXAMINATION: CT CERVICAL SPINE WITHOUT CONTRAST HISTORY: PAIN COMPARISON: None TECHNIQUE: Multiple contiguous axial images were obtained in a CT of the cervical spine without IV co ntrast. Sagittal and coronal reformats were performed. One or more of the following dose reduction techniques were used: Automated exposure control, adjustment of the mA and kV according to patient si ze, and iterative reconstruction. Unless otherwise specified, incidental findings do not require dedicated imaging follow-up. FINDINGS: The vertebral bodies and intervertebral discs demonstrate normal height and alignment without fractu re or subluxation. Postsurgical changes are present of laminectomy spanning C4-6. No prevertebral soft tissue swelling is seen. The posterior facets are well aligned. Normal alignment of the skull base with the cervical spine is seen. The odontoid appears normal and the lateral masses are symmetric. Scarring is present in the left apex. Prominent left-sided carotid atherosclerosis. IMPRESSION: No evidence of acute osseous abnormality of the cervical spine. Postsurgical changes mid cervical levels.
[2023-11-27] MEDS ORDERED: HYDROCODONE/APAP 5/325 MG TAB ONE (12:42)
--- NOTE | 2023-11-27 13:37 | EDPHYS ---
Physician Documentation [facility] Name: Arnold Roberts Age: 83 yrs Sex: Male : 1940 Arrival Date: 11/27/2023 Time: 10:43 Bed 9 Private MD: ED Physician Eric Narvaez HPI: 11/26 11:42 This 83 yrs old Male presents to ER via Wheelchair with complaints of Back Injury. ms3 11:43 83-year-old male with past medical history of coronary artery disease, hyperlipidemia, ms3 hypertension, thyroid disease presents to the emergency department for back and neck pain. Patient states he was putting his pants on Sunday and fell causing a back fracture. Patient states over the last few days he is also noted his neck to not be hurting. He rates his discomfort a 7/10 and states bending over makes the pain worse.. Historical: - Allergies: 11:21 No Known Allergies; hb - Home Meds: 11:21 amlodipine oral [Active]; hb - PMHx: 11:21 coronary atherosclerosis; High Cholesterol; Hypertension; Thyroid problem; hb - PSHx: 11:21 Coronary Angioplasty; Coronary artery bypass graft; Stented artery; hb - Immunization history:: Adult Immunizations up to date. - Infectious Disease History:: Denies. - Social history:: Smoking status: Patient denies any tobacco usage or history of. ROS: 11:43 Constitutional: Negative for fever, and chills. Cardiovascular: Negative for chest ms3 pain, and palpitations. Respiratory: Negative for shortness of breath, cough, wheezing, and pleuritic chest pain, Abdomen/GI: Negative for abdominal pain, nausea, vomiting, diarrhea, and constipation, 11:43 MS/extremity: Positive for pain, Exam: 11:43 Constitutional: This is a well developed, well nourished patient who is awake, alert, ms3 and in no acute distress. Chest/axilla: Normal chest wall appearance and motion. Nontender with no deformity. Cardiovascular: Regular rate and rhythm with a normal S1 and S2. No gallops, murmurs, or rubs. Normal PMI, no JVD. No pulse deficits. Respiratory: Lungs have equal breath sounds bilaterally, clear to auscultation and percussion. No rales, rhonchi or wheezes noted. No increased work of breathing, no retractions or nasal flaring. Abdomen/GI: Soft, non-tender, with normal bowel sounds. No distension or tympany. No guarding or rebound. No evidence of tenderness throughout. 11:43 Back: pain, that is moderate, Vital Signs: 11:20 BP 109 / 79; Pulse 83; Resp 16; Temp 98.3; Pulse Ox 100% on R/A; Weight 70.76 kg; hb Height 5 ft. 8 in. ; Pain 7/10; 13:57 BP 137 / 69; Pulse 81; Resp 18; Temp 98.1; Pulse Ox 100% ; ap3 11:20 Body Mass Index 23.72 (70.76 kg, 172.72 cm) hb 11:20 Pain Scale: Adult hb MDM: 11:40 Medical Screening Exam initiated ms3 11:43 Differential diagnosis: Cervical spine fracture versus muscle spasm versus lumbar ms3 compression fracture. 20:30 Data reviewed: vital signs, nurses notes, radiologic studies, and as a result, I will ms3 discharge patient. I considered the following discharge prescriptions or medication management in the emergency department Medications were administered in the Emergency Department. See MAR. Historians other than the Patient: EMS: . Counseling: I had a detailed discussion with the patient and/or guardian regarding the historical points, exam findings, and any diagnostic results supporting the discharge/admit diagnosis, radiology results, the need for outpatient follow up, to return to the emergency department if symptoms worsen or persist or if there are any questions or concerns that arise at home. ED course: Discussed CT scan neck with the patient. Patient to follow-up with Dr. Von Sanchez in 2 to 3 days. Patient understands and agrees with plan. All questions were answered. Return precautions discussed include worsening symptoms, or any other concerns. On reevaluation patient's symptoms improved, patient is alert and oriented x 4, no apparent distress, nontoxic-appearing, speaking full sentences. 11/26 11:43 Order name: CT C Spine; Complete Time: 12:18 ms3 Administered Medications: 12:45 Drug: HYDROcodone-acetaminophen PO 5 mg-325 mg 1 tabs PO once Route: PO; ap3 13:57 Follow up: Response: No adverse reaction; Pain is decreased ap3 Disposition Summary: 11/27/23 13:37 Discharge Ordered Notes: Location: Home ms3 Condition: Stable ms3 Diagnosis - Low back pain ms3 - neck pain ms3 Followup: ms3 - With: Private Physician - When: 2 - 3 days - Reason: Recheck today's complaints Discharge Instructions: - Discharge Summary Sheet ms3 - Acute Back Pain, Adult ms3 Forms: - Medication Reconciliation Form ms3 - Antibiotic Education ms3 - Prescription Opioid Use ms3 - Patient Portal Instructions ms3 - Leadership Thank You Letter ms3 Signatures: Dispatcher [employer] Shyla Barfield RN LLOYD Yu De Los Santos RN RN ap3 Eric Narvaez DO DO ms3 Corrections: (The following items were deleted from the chart) 11:23 11:21 Home Meds: amlodipine oral; [facility] 11:43 11:43 C Spine Wo Con+CT.RAD.BRZ ordered. EDMS EDMS
--- NOTE | 2023-11-27 13:37 | ER ---
Nurse's Notes [facility] Name: Arnold Roberts Age: 83 yrs Sex: Male : 1940 Arrival Date: 11/27/2023 Time: 10:43 Bed 9 Private MD: Diagnosis: Low back pain;neck pain Presentation: 11/26 11:20 Chief complaint: Recently seen for back fracture, c/o worsening low back pain since hb last night, Tramadol not helping. Coronavirus screen: At this time, the client does not indicate any symptoms associated with coronavirus-19. Ebola Screen: No symptoms or risks identified at this time. Initial Sepsis Screen: Does the patient meet any 2 criteria? No. Patient's initial sepsis screen is negative. Does the patient have a suspected source of infection? No. Patient's initial sepsis screen is negative. Risk Assessment: Do you want to hurt yourself or someone else? Patient reports no desire to harm self or others. Onset of symptoms was November 26, 2023. 11:20 Method Of Arrival: Wheelchair hb 11:20 Acuity: ORTIZ 4 hb Historical: - Allergies: 11:21 No Known Allergies; hb - Home Meds: 11:21 amlodipine oral [Active]; hb - PMHx: 11:21 coronary atherosclerosis; High Cholesterol; Hypertension; Thyroid problem; hb - PSHx: 11:21 Coronary Angioplasty; Coronary artery bypass graft; Stented artery; hb - Immunization history:: Adult Immunizations up to date. - Infectious Disease History:: Denies. - Social history:: Smoking status: Patient denies any tobacco usage or history of. Screenin:50 [facility] ED Fall Risk Assessment (Adult) History of falling in the last 3 months, ap3 including since admission Yes- single mechanical fall (1 pt) Confusion or Disorientation No (0 pts) Intoxicated or Sedated No (0 pts) Impaired Gait No (0 pts) Mobility Assist Device Used No (0 pt) Altered Elimination No (0 pt) Score/Fall Risk Level 0 - 2 = Low Risk Oriented to surroundings, Maintained a safe environment, Educated pt \T\ family on fall prevention, incl call for assistance when getting out of bed, Assessed \T\ reinforced patient's understanding of fall precautions, Hourly rounding (assess needs \T\ fall precautionary measures) done, Used ambulatory aids as needed (educated on \T\ assisted with), Used gait belt as appropriate. Abuse screen: Denies threats or abuse. Nutritional screening: No deficits noted. Tuberculosis screening: No symptoms or risk factors identified. Assessment: 12:26 Reassessment: No changes from previously documented assessment. Patient and/or family ll1 updated on plan of care and expected duration. Pain level reassessed. 12:49 General: Appears in no apparent distress. Behavior is calm, cooperative, appropriate ap3 for age. Pain: Complains of pain in back and neck Pain currently is 9 out of 10 on a pain scale. Pain began gradually, since a fall on 11/20/23. Neuro: Level of Consciousness is awake, alert, obeys commands, Oriented to person, place, time, situation, Appropriate for age Speech is normal. Cardiovascular: Patient's skin is warm and dry. Respiratory: Airway is patent Respiratory effort is even, unlabored, Respiratory pattern is regular, symmetrical. 13:31 Reassessment: Patient and/or family updated on plan of care and expected duration. Pain ap3 level reassessed. Patient is alert, oriented x 3, equal unlabored respirations, skin warm/dry/pink. Vital Signs: 11:20 BP 109 / 79; Pulse 83; Resp 16; Temp 98.3; Pulse Ox 100% on R/A; Weight 70.76 kg; hb Height 5 ft. 8 in. ; Pain 7/10; 13:57 BP 137 / 69; Pulse 81; Resp 18; Temp 98.1; Pulse Ox 100% ; ap3 11:20 Body Mass Index 23.72 (70.76 kg, 172.72 cm) hb 11:20 Pain Scale: Adult hb ED Course: 11:01 Patient arrived in ED. ra3 11:11 Eric Narvaez DO is Attending Physician. ms3 11:21 Triage completed. hb 11:23 Arm band placed on. hb 11:58 CT C Spine In Process Unspecified. EDMS 12:26 Patient placed in an exam room, on a stretcher. ll1 12:40 Yu De Los Santos, LLOYD is Primary Nurse. ap3 12:50 Patient has correct armband on for positive identification. Call light in reach. ap3 Provided Education on: fall risk education and call light education. 13:58 No provider procedures requiring assistance completed. Patient did not have IV access ap3 during this emergency room visit. Administered Medications: 12:45 Drug: HYDROcodone-acetaminophen PO 5 mg-325 mg 1 tabs PO once Route: PO; ap3 13:57 Follow up: Response: No adverse reaction; Pain is decreased ap3 Medication: 13:58 VIS not applicable for this client. ap3 Outcome: 13:37 Discharge ordered by MD. ms3 13:58 Discharged to [facility] in wheelchair. patient called his son to come pick him up ap3 13:58 Condition: good 13:58 Discharge instructions given to patient, Instructed on discharge instructions, follow up and referral plans. Demonstrated understanding of instructions, follow-up care, 13:58 Patient left the ED. ap3 Signatures: Dispatcher [employer] EDMS Shyla Lloyd RN RN Yu De Los Santos RN RN ap3 Ralph Ross RN RN ll1 Eric Narvaez DO DO ms3 Breanna Gordon ra3 Corrections: (The following items were deleted from the chart) 11:23 11:21 Home Meds: amlodipine oral; hb hb
[2023-11-27 16:17] VITALS: O2SAT 100
[2023-11-27 16:18] VITALS: BP 137/69; TEMP 98.1
== END 2023-11-27 13:58 | disposition home or self-care (01) ==
LOC: ER 10:43
DX: M54.50 Low back pain, unspecified (principal); M54.2 Cervicalgia; Z95.1 Presence of aortocoronary bypass graft
CPT/HCPCS: 72125

== ENCOUNTER 2024-01-06 19:03 | Emergency (ER) | payer OTHER ==
[2024-01-06 20:04] LABS: Absolute Eosinophils 0.2 K/uL (0-0.5); Absolute Lymphocytes (CBC) 1.5 K/uL (0.7-4.9); Absolute Monocytes 1.3 K/uL (0.1-1.3); Absolute Neutrophil 6.7 K/uL (1.8-8.0); Basophils % 0.3 % (0-1.3); Eosinophils % 2.3 % (0-4.4); Hematocrit 34.4 % (39.6-49.0); Hemoglobin 11.9 g/dL (13.6-17.9); Lymphocytes % 15.5 % (15.3-44.8); MCH 32.8 pg (27.0-35.0); MCHC 34.7 g/dL (32.0-36.0); MCV 94.5 fL (80-100); MPV 7.1 fL (7.6-11.3); Monocytes % 13.4 % (3.3-12.3); Neutrophils % 68.5 % (41.7-73.7); Nucleated Red Blood Cells % 0.1 % (0-0); Platelets 355 thou/uL (152-406); RBC Red Blood Cell Count 3.64 M/uL (4.33-5.43); Red Cell Distribution Width 14.5 % (12.1-15.2)
[2024-01-06 20:21] LABS: Albumin 3.4 g/dL (3.4-5.0); Albumin/Globulin Ratio 0.8 (1.1-1.8); Anion Gap 9.4 mEq/L (5.0-15.0); Bilirubin Total 0.6 mg/dL (0.2-1.0); Globulin 4.1 g/dL (2.3-3.5); Potassium 3.4 mEq/L (3.5-5.1); Protein, Total 7.5 g/dL (6.4-8.2); Troponin High Sensitivity 15.5 pg/mL (<58.9)
--- NOTE | 2024-01-06 21:05 | RAD REPORT ---
EXAMINATION: CT ABDOMEN AND PELVIS WITH CONTRAST CLINICAL INDICATION: Abdominal distention;Abd pain TECHNIQUE: CT abdomen and pelvis was performed, after the administration of IV contrast, as per [employer] protocol. Axial, sagittal and coronal reconstructions were obtained. One or more of the following dose reduction techniques were used: Automated exposure control, adjustment of the mA and k V according to patient size, and iterative reconstruction. Unless otherwise specified, incidental findings do not require dedicated imaging follow-up. COMPARISON: No prior exam. FINDINGS: LOWER CHEST: The visualized lung bases are clear. LIVER: Normal in size and contour. No focal lesion. Grossly unremarkable gallbladder. SPLEEN: Normal size. No focal lesion. PANCREAS: No mass, ductal dilation, or ra-pancreatic fluid. ADRENALS: Normal; no mass. KIDNEYS: Normal size and contour. No hydronephrosis. GASTROINTESTINAL TRACT: No evidence of free air, significant intra-abdominal free fluid, bowel obstru ction or abscess. Severe constipation. APPENDIX: Normal appendix. LYMPH NODES: No lymphadenopathy. MUSCULOSKELETAL: Moderate L1 compression fracture, subacute in appearance. It has progressed however since 11/22/[address] ADDITIONAL FINDINGS: None. IMPRESSION: Severe constipation. Moderate progression in L1 compression fracture since 11/22/2023
[2024-01-06 21:06] LABS: Specific Gravity 1.016 (1.005-1.030); Sqamous Epithelial None Seen /HPF (None Seen); Urine Bacteria <20 /HPF (<20); Urine Bilirubin NEGATIVE (Negative); Urine Blood Negative (Negative); Urine Clarity Turbid (Clear); Urine Color Yellow (Yellow); Urine Culture Reflex Order NOT NEEDED; Urine Glucose NEGATIVE (Negative); Urine Ketones NEGATIVE (Negative); Urine Microscopic Reflex YN ORDER UMIC; Urine Mucus Slight /HPF (None Seen); Urine Nitrite NEGATIVE (Negative); Urine Protein NEGATIVE (Negative); Urine RBC <5 /HPF (None Seen); Urine Urobilinogen Normal (Normal); Urine WBC <5 /HPF (<5); Urine pH 6.5 (5.0-7.0)
[2024-01-06] MEDS ORDERED: FLEET ENEMA ADULT PR ONE (21:58)
[2024-01-06] MEDS ORDERED: MAGNESIUM CITRATE 300 ML BOT ONE (22:54)
--- NOTE | 2024-01-07 02:48 | EDPHYS ---
Physician Documentation [facility] Name: Arnold Roberts Age: 83 yrs Sex: Male : 1940 Arrival Date: 01/06/2024 Time: 19:03 Bed 18 Private MD: ED Physician Deborah Topete HPI: 01/05 19:32 This 83 yrs old Male presents to ER via Unassigned with complaints of abdominal pain. sp3 19:32 83-year-old male with history of hyperlipidemia, hypertension, hypothyroidism status sp3 post coronary artery bypass graft surgery now presents to the ED with chief complaint abdominal pain and distention with decreased bowel movements with "small amount yesterday morning". Patient denies any vomiting but does endorse nausea. Review of systems negative for fever, chest pain, shortness of breath, back pain, syncope, near syncope, focal neurological deficit, travel history, known sick contacts, or any other signs or symptoms on ROS at this time.. Historical: - Allergies: 22:18 No Known Allergies; rg5 - Home Meds: 22:18 amlodipine oral [Active]; rg5 - PMHx: 22:18 coronary atherosclerosis; High Cholesterol; Hypertension; Thyroid problem; rg5 - PSHx: 22:18 Coronary Angioplasty; Coronary artery bypass graft; Stented artery; rg5 - Immunization history:: Adult Immunizations up to date. - Infectious Disease History:: Denies. - Social history:: Smoking status: unknown. ROS: 19:32 Constitutional: Negative for fever, chills, and weight loss, Eyes: Negative for injury, sp3 pain, redness, and discharge, ENT: Negative for injury, pain, and discharge, Neck: Negative for injury, pain, and swelling, Cardiovascular: Negative for chest pain, palpitations, and edema, Respiratory: Negative for shortness of breath, cough, wheezing, and pleuritic chest pain, Back: Negative for injury and pain, : Negative for injury, bleeding, discharge, and swelling, MS/Extremity: Negative for injury and deformity, Skin: Negative for injury, rash, and discoloration, Neuro: Negative for headache, weakness, numbness, tingling, and seizure, Psych: Negative for depression, anxiety, suicide ideation, homicidal ideation, and hallucinations, Allergy/Immunology: Negative for hives, rash, and allergies, Endocrine: Negative for neck swelling, polydipsia, polyuria, polyphagia, and marked weight changes, Hematologic/Lymphatic: Negative for swollen nodes, abnormal bleeding, and unusual bruising, 19:32 All other systems are negative, Exam: 19:33 Constitutional: This is a well developed, well nourished patient who is awake, alert, sp3 and in no acute distress. Head/Face: Normocephalic, atraumatic. Eyes: Pupils equal round and reactive to light, extra-ocular motions intact. Lids and lashes normal. Conjunctiva and sclera are non-icteric and not injected. Cornea within normal limits. Periorbital areas with no swelling, redness, or edema. Neck: Trachea midline, no thyromegaly or masses palpated, and no cervical lymphadenopathy. Supple, full range of motion without nuchal rigidity, or vertebral point tenderness. No Meningismus. Chest/axilla: Normal chest wall appearance and motion. Nontender with no deformity. No lesions are appreciated. Cardiovascular: Regular rate and rhythm with a normal S1 and S2. No gallops, murmurs, or rubs. Normal PMI, no JVD. No pulse deficits. Respiratory: Lungs have equal breath sounds bilaterally, clear to auscultation and percussion. No rales, rhonchi or wheezes noted. No increased work of breathing, no retractions or nasal flaring. Back: No spinal tenderness. No costovertebral tenderness. Full range of motion. Skin: Warm, dry with normal turgor. Normal color with no rashes, no lesions, and no evidence of cellulitis. MS/ Extremity: Pulses equal, no cyanosis. Neurovascular intact. Full, normal range of motion. Neuro: Awake and alert, GCS 15, oriented to person, place, time, and situation. Cranial nerves II-XII grossly intact. Motor strength 5/5 in all extremities. Sensory grossly intact. Cerebellar exam normal. Normal gait. Psych: Awake, alert, with orientation to person, place and time. Behavior, mood, and affect are within normal limits. 19:33 Abdomen/GI: Soft but mildly distended abdomen without peritoneal signs, rebound or guarding., 19:54 ECG was reviewed by the Attending Physician. EKG demonstrates normal sinus rhythm at 66 sp3 bpm with right bundle branch block, sinus arrhythmia and PVCs and nonspecific diffuse ST's ST changes without evidence of acute ischemia. Vital Signs: 20:00 BP 141 / 68; Pulse 75; Resp 19; Pulse Ox 100% on R/A; af3 21:00 BP 152 / 88; Pulse 82; Resp 17; Pulse Ox 100% on R/A; rg5 22:57 BP 154 / 111; Pulse 94; Resp 19; Pulse Ox 100% on R/A; rg5 23:30 BP 153 / 98; Pulse 84; Resp 18; Pulse Ox 100% on R/A; rg5 12 00:35 BP 151 / 81; Pulse 86; Resp 19; Pulse Ox 100% on R/A; rg5 01:15 BP 135 / 100; Pulse 86; Resp 17; Pulse Ox 100% on R/A; rg5 02:14 BP 139 / 77; Pulse 85; Resp 17 S; Pulse Ox 100% ; rg5 MDM: 01/05 19:25 Medical Screening Exam initiated sp3 19:33 Data reviewed: vital signs, nurses notes, old medical records, lab test result(s), EKG, sp3 radiologic studies. ED course: 83-year-old male with PMH above now with abdominal pain and distention. Differential diagnosis includes constipation, bowel obstruction, ileus, other abdominal pathology, pancreatitis, biliary pathology, among others. I med/tele suspicious for vascular pathology including AAA, pathology, bowel ischemia, or any other critical process. Workup will include CT scan of the abdomen pelvis with contrast, general labs, UA, lactate and general supportive care. Disposition pending workup and patient course.. 01/06 02:12 ED course: Patient now having bowel movement nurse disimpaction.. sp3 01/05 19:30 Order name: CBC with Diff; Complete Time: 21:06 sp3 01/05 19:30 Order name: CMP; Complete Time: 21:06 3 01/05 19:30 Order name: Lipase; Complete Time: 21:06 3 01/05 19:30 Order name: Urinalysis w/ reflexes; Complete Time: 21:06 sp3 01/05 19:30 Order name: Troponin High Sensitivity; Complete Time: 21:06 3 01/05 19:30 Order name: Lactate w/ 2H reflex if indic.; Complete Time: 21:06 3 01/05 19:30 Order name: CT Abd/Pelvis - IV Contrast Only; Complete Time: 21:06 sp3 01/05 19:30 Order name: EKG; Complete Time: 19:31 sp3 01/05 19:30 Order name: IV Saline Lock; Complete Time: 19:47 sp3 01/05 19:30 Order name: Labs collected and sent; Complete Time: 19:47 sp3 01/05 19:30 Order name: EKG - Nurse/Tech; Complete Time: 19:52 sp3 01/05 19:30 Order name: Vital Signs; Complete Time: 20:00 sp3 01/06 00:49 Order name: Misc. Order: Soap suds enema; Complete Time: 01:11 sp3 Administered Medications: 01/05 22:08 Drug: Fleet Enema MS 133 ml MS once Route: MS; rg5 22:56 Follow up: Response: No adverse reaction rg5 23:06 Drug: Magnesium Citrate PO Liquid 150 ml PO once Route: PO; rg5 01/06 00:07 Follow up: Response: No adverse reaction rg5 Disposition Summary: 01/07/24 02:48 Discharge Ordered Notes: Location: Home sp3 Condition: Stable sp3 Diagnosis - Constipation, abdominal pain sp3 Followup: sp3 - With: Private Physician - When: Upon discharge from the Emergency Department - Reason: Continuance of care Discharge Instructions: - Discharge Summary Sheet sp3 - Constipation, Adult sp3 Forms: - Medication Reconciliation Form sp3 - Antibiotic Education sp3 - Prescription Opioid Use sp3 - Patient Portal Instructions sp3 - Leadership Thank You Letter sp3 Signatures: Dispatcher [employer] EDMS Deborha Topete MD MD sp3 Lonny Nevarez, LLOYD RN rg5 Corrections: (The following items were deleted from the chart) 01/05 19:31 19:31 CBC+H.LAB.BRZ ordered. EDMS EDMS 19:31 19:31 COMPREHENSIVE METABOLIC PANEL+C.LAB.BRZ ordered. EDMS EDMS 19:31 19:31 LIPASE+C.LAB.BRZ ordered. EDMS EDMS 19:31 19:31 Urinalysis+U.LAB.BRZ ordered. EDMS EDMS 19:31 19:31 Troponin High Sensitivity+C.LAB.BRZ ordered. EDMS EDMS 19:31 19:31 LACTATE+C.LAB.BRZ ordered. EDMS EDMS
--- NOTE | 2024-01-07 02:48 | ER ---
Nurse's Notes [facility] Name: Arnold Roberts Age: 83 yrs Sex: Male : 1940 Arrival Date: 01/06/2024 Time: 19:03 Bed 18 Private MD: Diagnosis: Constipation, abdominal pain Presentation: 01/05 19:25 Chief complaint: EMS states: pt had been constipated for several days and now he is rg5 having some abdominal cramping. 19:25 Coronavirus screen: Client denies travel out of the [place] in the last 14 days. Ebola rg5 Screen: Patient negative for fever greater than or equal to 101.5 degrees Fahrenheit, and additional compatible Ebola Virus Disease symptoms. Initial Sepsis Screen: Does the patient meet any 2 criteria? No. Patient's initial sepsis screen is negative. Does the patient have a suspected source of infection? No. Patient's initial sepsis screen is negative. Risk Assessment: Do you want to hurt yourself or someone else? Patient reports no desire to harm self or others. Onset of symptoms was January 06, 2024. 19:25 Method Of Arrival: EMS: [facility] rg5 19:25 Acuity: ORTIZ 3 rg5 Triage Assessment: 19:30 General: Appears uncomfortable, Behavior is calm, cooperative. Pain: Complains of pain rg5 in abdomen Pain currently is 8 out of 10 on a pain scale. Quality of pain is described as aching, crampy, Pain began 3 hours ago. 19:30 Neuro: Level of Consciousness is awake, alert, obeys commands. Cardiovascular: Denies rg5 chest pain, Heart tones S1 S2 Patient's skin is warm and dry. Respiratory: Airway is patent Trachea midline Respiratory effort is even, unlabored, Respiratory pattern is regular, symmetrical. GI: Abdomen is round Bowel sounds present in left upper quadrant Reports constipation. : No signs and/or symptoms were reported regarding the genitourinary system. Derm: Skin is intact, Skin is dry, Skin is normal, Skin temperature is warm. Musculoskeletal: Circulation, motion, and sensation intact. Range of motion: intact in all extremities. Historical: - Allergies: 22:18 No Known Allergies; rg5 - Home Meds: 22:18 amlodipine oral [Active]; rg5 - PMHx: 22:18 coronary atherosclerosis; High Cholesterol; Hypertension; Thyroid problem; rg5 - PSHx: 22:18 Coronary Angioplasty; Coronary artery bypass graft; Stented artery; rg5 - Immunization history:: Adult Immunizations up to date. - Infectious Disease History:: Denies. - Social history:: Smoking status: unknown. Screenin:30 [facility] ED Fall Risk Assessment (Adult) History of falling in the last 3 months, rg5 including since admission Yes- single mechanical fall (1 pt) Confusion or Disorientation No (0 pts) Intoxicated or Sedated No (0 pts) Impaired Gait Yes (1 pt) Mobility Assist Device Used Yes (1 pt) Altered Elimination No (0 pt) Score/Fall Risk Level 3 or more points = High Risk Oriented to surroundings, Maintained a safe environment, Hourly rounding (assess needs \T\ fall precautionary measures) done. Abuse screen: Denies threats or abuse. Nutritional screening: No deficits noted. Tuberculosis screening: No symptoms or risk factors identified. Assessment: 19:30 Reassessment: see triage assessment. rg5 20:00 Reassessment: No changes from previously documented assessment. Patient and/or family rg5 updated on plan of care and expected duration. Pain level reassessed. Patient is alert, oriented x 3, equal unlabored respirations, skin warm/dry/pink. 21:00 Reassessment: Patient and/or family updated on plan of care and expected duration. Pain rg5 level reassessed. Patient is alert, oriented x 3, equal unlabored respirations, skin warm/dry/pink. 22:00 Reassessment: Patient and/or family updated on plan of care and expected duration. Pain rg5 level reassessed. Patient is alert, oriented x 3, equal unlabored respirations, skin warm/dry/pink. 23:00 Reassessment: No changes from previously documented assessment. Patient and/or family rg5 updated on plan of care and expected duration. Pain level reassessed. 01/06 00:00 Reassessment: Patient and/or family updated on plan of care and expected duration. Pain rg5 level reassessed. Patient is alert, oriented x 3, equal unlabored respirations, skin warm/dry/pink. 01:16 Reassessment: No changes from previously documented assessment. Patient and/or family rg5 updated on plan of care and expected duration. Pain level reassessed. 02:16 Reassessment: No changes from previously documented assessment. Patient and/or family rg5 updated on plan of care and expected duration. Pain level reassessed. Patient is alert, oriented x 3, equal unlabored respirations, skin warm/dry/pink. Vital Signs: 01/05 20:00 BP 141 / 68; Pulse 75; Resp 19; Pulse Ox 100% on R/A; af3 21:00 BP 152 / 88; Pulse 82; Resp 17; Pulse Ox 100% on R/A; rg5 22:57 BP 154 / 111; Pulse 94; Resp 19; Pulse Ox 100% on R/A; rg5 23:30 BP 153 / 98; Pulse 84; Resp 18; Pulse Ox 100% on R/A; rg5 01/06 00:35 BP 151 / 81; Pulse 86; Resp 19; Pulse Ox 100% on R/A; rg5 01:15 BP 135 / 100; Pulse 86; Resp 17; Pulse Ox 100% on R/A; rg5 02:14 BP 139 / 77; Pulse 85; Resp 17 S; Pulse Ox 100% ; rg5 ED Course: 01/05 19:23 Patient arrived in ED. vk 19:24 Deborah Topete MD is Attending Physician. sp3 19:30 No provider procedures requiring assistance completed. rg5 19:30 Inserted saline lock: 20 gauge in right forearm, using aseptic technique. Blood rg5 collected. Flushed with 10 mL NS. 19:30 Patient has correct armband on for positive identification. Bed in low position. Call rg5 light in reach. Side rails up X 1. Door closed. Noise minimized. Warm blanket given. 19:30 Arm band placed on. rg5 19:40 Lonny Nevarez, RN is Primary Nurse. rg5 19:52 EKG done, by hydrology technician. af3 20:59 CT Abd/Pelvis - IV Contrast Only In Process Unspecified. EDMS 22:18 Triage completed. rg5 01/06 00:38 Cleaned of incontinence. vk 02:15 Assisted to bedside commode. rg5 03:09 IV discontinued, bleeding controlled, No redness/swelling at site. Pressure dressing rg5 applied. 03:09 Provided Education on: post er care. rg5 Administered Medications: 01/05 22:08 Drug: Fleet Enema RI 133 ml RI once Route: RI; rg5 22:56 Follow up: Response: No adverse reaction rg5 23:06 Drug: Magnesium Citrate PO Liquid 150 ml PO once Route: PO; rg5 01/06 00:07 Follow up: Response: No adverse reaction rg5 Medication: 01/05 19:30 VIS not applicable for this client. rg5 Outcome: 01/06 02:48 Discharge ordered by . sp3 03:09 Discharged to home via wheelchair, rg5 03:09 Condition: stable 03:09 Instructed on discharge instructions, follow up and referral plans. Demonstrated understanding of instructions, follow-up care, medications, 03:10 Patient left the ED. rg5 Signatures: Dispatcher [employer] EDMS Deborah Topete MD MD sp3 Eunice Lancaster Rommel, RN RN rg5 Celia Richard3 Corrections: (The following items were deleted from the chart) 01:15 01:14 BP 151 / 81; Pulse 86bpm; Resp 19bpm; Pulse Ox 100% RA; rg5 rg5
[2024-01-07 04:38] VITALS: O2SAT 100
[2024-01-07 04:45] VITALS: BP 139/77
== END 2024-01-07 03:10 | disposition home or self-care (01) ==
LOC: ER 19:03
DX: R10.9 Unspecified abdominal pain (principal); K59.00 Constipation, unspecified; I10 Essential (primary) hypertension; E78.5 Hyperlipidemia, unspecified; E03.9 Hypothyroidism, unspecified; I25.10 Atherosclerotic heart disease of native coronary artery without angina pectoris; Z95.1 Presence of aortocoronary bypass graft; Z95.5 Presence of coronary angioplasty implant and graft; Z79.899 Other long term (current) drug therapy
CPT/HCPCS: 85025; 81001; 36415; 83605; 84484; 83690; 80053; 74177; 99284; Q9967

== ENCOUNTER 2024-01-09 12:27 | Emergency (ER) | payer OTHER ==
[2024-01-09] MEDS ORDERED: ONDANSETRON 4 MG/2 ML VIAL ONE (12:41)
[2024-01-09] MEDS ORDERED: dexAMETHasone 10 MG/ML VIAL ONE (12:41)
[2024-01-09] MEDS ORDERED: MORPHINE 2 MG/ML SYR ONE (12:42)
[2024-01-09] MEDS ORDERED: NA CHLORIDE 0.9% 500 ML ONE (12:42)
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
--- NOTE | 2024-01-09 13:10 | RAD REPORT ---
EXAM: C Spine Wo Con HISTORY: Radiculopathy. Neck pain. COMPARISON: November 2023 TECHNIQUE: Multiple contiguous axial images were obtained in a CT of the cervical spine without contr ast. Sagittal and coronal reformats were performed. One or more of the following dose reduction techniques were used: Automated exposure control, adjustment of the mA and kV according to patient si ze, and iterative reconstruction. Unless otherwise specified, incidental findings do not require dedicated imaging follow-up. FINDINGS: Postsurgical changes C4 and C5. No fracture visualized. No dislocation Spondylosis involves the cervical spine. It is most marked C4-5 in which there is moderate to marked narrowing of the left neural foramina. IMPRESSION: No fracture seen Spondylosis C4-5 results in moderate to marked left foraminal stenosis. If the patient continues to have symptoms to suggest spinal cord/spinal canal pathology then MRI coul d be obtained
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
[2024-01-09 13:12] LABS: Absolute Basophils 0.1 K/uL (0-0.5); Absolute Eosinophils 0.4 K/uL (0-0.5); Absolute Lymphocytes (CBC) 1.6 K/uL (0.7-4.9); Absolute Neutrophil 6.1 K/uL (1.8-8.0); Basophils % 0.6 % (0-1.3); Eosinophils % 4.3 % (0-4.4); Hematocrit 33.3 % (39.6-49.0); Hemoglobin 11.2 g/dL (13.6-17.9); Lymphocytes % 17.1 % (15.3-44.8); MCH 32.7 pg (27.0-35.0); MCHC 33.7 g/dL (32.0-36.0); MCV 96.9 fL (80-100); MPV 7.4 fL (7.6-11.3); Platelets 315 thou/uL (152-406); RBC Red Blood Cell Count 3.44 M/uL (4.33-5.43); Red Cell Distribution Width 14.4 % (12.1-15.2)
--- NOTE | 2024-01-09 13:12 | RAD REPORT ---
Exam:Hip Left 2 View HISTORY: Left hip pain FINDINGS: No fracture or dislocation seen Osteoporosis If the patient continues to have symptoms to suggest an occult fracture then MRI would be recommended
[2024-01-09 13:36] LABS: Anion Gap 8.9 mEq/L (5.0-15.0); Bilirubin Total 0.5 mg/dL (0.2-1.0); Potassium 3.9 mEq/L (3.5-5.1)
[2024-01-09 13:37] LABS: Albumin 3.1 g/dL (3.4-5.0); Albumin/Globulin Ratio 0.8 (1.1-1.8); Globulin 3.7 g/dL (2.3-3.5); Protein, Total 6.8 g/dL (6.4-8.2); Troponin High Sensitivity 14.8 (<58.9)
[2024-01-09 14:10] LABS: Specific Gravity 1.008 (1.005-1.030); Sqamous Epithelial None Seen /HPF (None Seen); Urine Bacteria <20 /HPF (<20); Urine Bilirubin NEGATIVE (Negative); Urine Blood Negative (Negative); Urine Clarity Turbid (Clear); Urine Color Light-Yellow (Yellow); Urine Culture Reflex Order NOT NEEDED; Urine Glucose NEGATIVE (Negative); Urine Ketones NEGATIVE (Negative); Urine Microscopic Reflex YN ORDER UMIC; Urine Mucus Slight /HPF (None Seen); Urine Nitrite NEGATIVE (Negative); Urine Protein NEGATIVE (Negative); Urine RBC None Seen /HPF (None Seen); Urine Urobilinogen Normal (Normal); Urine WBC <5 /HPF (<5); Urine pH 7.5 (5.0-7.0)
--- NOTE | 2024-01-09 14:10 | ER ---
Nurse's Notes [facility] Name: Arnold Roberts Age: 83 yrs Sex: Male : 1940 Arrival Date: 01/09/2024 Time: 12:27 Bed 7 Private MD: Diagnosis: Fall on same level, unspecified;Fracture of lumbar vertebra-MODERATE SUBACUTE FRACTURE;Sciatica;Sciatica, left side;Pain in left hip Presentation: 01/08 12:31 Chief complaint: EMS states: Called to patient's home for left hip pain and low back cm10 pain. pt was seen here 2 days ago. pt also complaining of weakness. Pt noted to have wound to right ear. Coronavirus screen: Client denies travel out of the [place] in the last 14 days. Ebola Screen: Patient denies travel to an Ebola-affected area in the 21 days before illness onset. No symptoms or risks identified at this time. Initial Sepsis Screen: Does the patient meet any 2 criteria? No. Patient's initial sepsis screen is negative. Does the patient have a suspected source of infection? No. Patient's initial sepsis screen is negative. Risk Assessment: Do you want to hurt yourself or someone else? Patient reports no desire to harm self or others. Onset of symptoms was January 09, 2024. Care prior to arrival: Glucose check: 116. 12:31 Method Of Arrival: EMS: [facility]10 12:31 Acuity: ORTIZ 3 cm10 Triage Assessment: 12:33 General: Appears in no apparent distress. comfortable, Behavior is calm, cooperative. cm10 Pain: Complains of pain in back and left hip. Neuro: No deficits noted. Level of Consciousness is awake, alert, obeys commands, Oriented to person, place, time, situation, Appropriate for age. Respiratory: No deficits noted. Airway is patent Respiratory effort is even, unlabored, Respiratory pattern is regular, symmetrical. Musculoskeletal: No deficits noted. Range of motion: intact in all extremities. Historical: - Allergies: 12:33 No Known Allergies; cm10 - PMHx: 12:33 coronary atherosclerosis; High Cholesterol; Hypertension; Thyroid problem; cm10 - PSHx: 12:33 Coronary Angioplasty; Coronary artery bypass graft; Stented artery; cm10 - Immunization history:: Adult Immunizations up to date. - Infectious Disease History:: Denies. - Social history:: Smoking status: unknown. Screenin:34 [facility] ED Fall Risk Assessment (Adult) History of falling in the last 3 months, cm10 including since admission Yes- fall prone (multiple falls) (3 pts) Confusion or Disorientation No (0 pts) Intoxicated or Sedated No (0 pts) Impaired Gait No (0 pts) Mobility Assist Device Used No (0 pt) Altered Elimination No (0 pt) Score/Fall Risk Level 0 - 2 = Low Risk Oriented to surroundings, Maintained a safe environment, Hourly rounding (assess needs \T\ fall precautionary measures) done. Abuse screen: Denies threats or abuse. Denies injuries from another. Nutritional screening: No deficits noted. Tuberculosis screening: No symptoms or risk factors identified. Assessment: 14:00 Reassessment: Patient appears in no apparent distress at this time. Patient and/or cm10 family updated on plan of care and expected duration. Pain level reassessed. Patient is alert, oriented x 3, equal unlabored respirations, skin warm/dry/pink. Patient denies pain at this time. Patient states feeling better. Patient states symptoms have improved. Vital Signs: 12:31 BP 111 / 87; Pulse 70; Resp 16; Temp 98.4(O); Pulse Ox 100% on R/A; Weight 68.04 kg; cm10 Height 5 ft. 9 in. ; Pain 5/10; 13:00 BP 132 / 68; Pulse 61; Resp 16; Pulse Ox 100% ; cm10 13:30 BP 152 / 78; Pulse 72; Resp 16; Pulse Ox 100% on R/A; cm10 13:58 Pain 0/10; cm10 14:00 BP 155 / 85; Pulse 73; Resp 16; Pulse Ox 100% ; cm10 12:31 Body Mass Index 22.15 (68.04 kg, 175.26 cm) cm10 12:31 Pain Scale: Adult cm10 13:58 Pain Scale: Adult cm10 ED Course: 12:28 Patient arrived in ED. ko1 12:29 Kush Stephens MD is Attending Physician. hemanth 12:30 Hanna Schwab, LLOYD is Primary Nurse. cm10 12:32 Triage completed. cm10 12:34 Arm band placed on right wrist. Patient placed in an exam room, on a stretcher, on cm10 pulse oximetry. 12:35 Patient has correct armband on for positive identification. Bed in low position. Call cm10 light in reach. Side rails up X2. Provided Education on: ER process and procedures.. Pulse ox on. NIBP on. 12:48 CT Lumbar Spine Wo Con In Process Unspecified. EDMS 12:50 C Spine Wo Con In Process Unspecified. EDMS 12:58 Pelvis XRAY In Process Unspecified. EDMS 12:59 Hip Left 2 View XRAY In Process Unspecified. EDMS 13:03 Comprehensive Metabolic Panel Sent. cm10 13:04 CBC with Diff Sent. cm10 13:04 Initial lab(s) drawn, by me, sent to lab. EKG done, by ED staff, reviewed by Kush Stephens MD. Inserted saline lock: 20 gauge in right forearm, using aseptic technique. Blood collected. Flushed with 10 mL NS. 14:15 Anthony Dean MD is Referral Physician. hemanth 14:46 No provider procedures requiring assistance completed. IV discontinued, intact, cm10 bleeding controlled, No redness/swelling at site. Pressure dressing applied. Administered Medications: 13:04 Drug: NS 0.9% IV 500 ml 500 ml IV at 1 bolus once; to be given as a bolus over 30 cm10 minutes Volume: 500 ml; Route: IV; Rate: 1 bolus; Site: right forearm; 13:58 Follow up: Response: No adverse reaction; IV Status: Completed infusion; IV Intake: cm10 500ml 13:04 Drug: morphine IVP or IV 2 mg IVP once over 4 mins Route: IVP; Infused Over: 4 mins; cm10 Site: right forearm; 13:58 Follow up: Pain 0/10 Adult; Response: No adverse reaction; Pain is decreased cm10 13:04 Drug: Ondansetron IVP 4 mg IVP once; over 2 minutes Route: IVP; Site: right forearm; cm10 13:58 Follow up: Response: No adverse reaction cm10 13:04 Drug: Decadron - Dexamethasone IVP 10 mg IVP once Route: IVP; Site: right forearm; cm10 13:58 Follow up: Response: No adverse reaction cm10 Medication: 12:34 VIS not applicable for this client. cm10 Intake: 13:58 IV: 500ml; Total: 500ml. cm10 Outcome: 14:10 Discharge ordered by MD. hemanth 14:47 Discharged to home ambulatory, Waiting for ride in [place] cm10 14:47 Condition: good 14:47 Discharge instructions given to patient, Instructed on discharge instructions, follow up and referral plans. medication usage, Demonstrated understanding of instructions, follow-up care, medications, Prescriptions given X 4, 14:47 Patient left the ED. cm10 Signatures: Dispatcher [employer] EDMS Kush Stephens MD MD cha Oliver, Kathy, RN RN ko1 Hanna Schwab RN RN cm10 Corrections: (The following items were deleted from the chart) 12:33 12:31 Chief complaint: EMS states: Called to patient's home for left hip pain and low cm10 back pain. pt was seen here 2 days ago. pt also complaining of weaknes. cm10
--- NOTE | 2024-01-09 14:10 | EDPHYS ---
Physician Documentation [facility] Name: Arnold Roberts Age: 83 yrs Sex: Male : 1940 Arrival Date: 01/09/2024 Time: 12:27 Bed 7 Private MD: FREDDIE Physician Kush Stephens HPI: 01/08 14:02 This 83 yrs old Male presents to ER via EMS with complaints of General hemanth Weakness. 14:02 The patient or guardian reports decreased range of motion, an injury, pain. that hemanth occurred at home, sustained from a fall, There is no obvious deformity, The patient is able to self ambulate. The patient is able to bear their full body weight. The complaints affect the back and left leg. Modifying factors: The symptoms are alleviated by remaining still, the symptoms are aggravated by any movement. The patient presents with pain, that is acute. The complaints affect the left hip, lateral aspect of left thigh, left upper thigh and left quadriceps. Context: The problem was sustained at home, resulted from the patient falling, the patient can fully bear weight. Onset: The symptoms/episode began/occurred 21 day(s) ago. Modifying factors: The symptoms are alleviated by remaining still, the symptoms are aggravated by movement, weight bearing. Historical: - Allergies: 12:33 No Known Allergies; cm10 - PMHx: 12:33 coronary atherosclerosis; High Cholesterol; Hypertension; Thyroid problem; cm10 - PSHx: 12:33 Coronary Angioplasty; Coronary artery bypass graft; Stented artery; cm10 - Immunization history:: Adult Immunizations up to date. - Infectious Disease History:: Denies. - Social history:: Smoking status: unknown. ROS: 14:04 Constitutional: Negative for fever, chills, and weight loss, Eyes: Negative for injury, hemanth pain, redness, and discharge, ENT: Negative for injury, pain, and discharge, Neck: Negative for injury, pain, and swelling, Cardiovascular: Negative for chest pain, palpitations, and edema, Respiratory: Negative for shortness of breath, cough, wheezing, and pleuritic chest pain, Abdomen/GI: Negative for abdominal pain, nausea, vomiting, diarrhea, and constipation, : Negative for injury, bleeding, discharge, and swelling, Skin: Negative for injury, rash, and discoloration, Neuro: Negative for headache, weakness, numbness, tingling, and seizure, Psych: Negative for depression, anxiety, suicide ideation, homicidal ideation, and hallucinations, Allergy/Immunology: Negative for hives, rash, and allergies, Endocrine: Negative for neck swelling, polydipsia, polyuria, polyphagia, and marked weight changes, Hematologic/Lymphatic: Negative for swollen nodes, abnormal bleeding, and unusual bruising, 14:04 Back: Positive for decreased range of motion, pain at rest, pain with movement, 14:04 MS/extremity: Positive for decreased range of motion, pain, tenderness, of the left hip, left upper thigh and left quadriceps, Exam: 14:04 Constitutional: This is a well developed, well nourished patient who is awake, alert, hemanth and in no acute distress. Head/Face: Normocephalic, atraumatic. Eyes: Pupils equal round and reactive to light, extra-ocular motions intact. Lids and lashes normal. Conjunctiva and sclera are non-icteric and not injected. Cornea within normal limits. Periorbital areas with no swelling, redness, or edema. ENT: Nares patent. No nasal discharge, no septal abnormalities noted. Tympanic membranes are normal and external auditory canals are clear. Oropharynx with no redness, swelling, or masses, exudates, or evidence of obstruction, uvula midline. Mucous membranes moist. Neck: Trachea midline, no thyromegaly or masses palpated, and no cervical lymphadenopathy. Supple, full range of motion without nuchal rigidity, or vertebral point tenderness. No Meningismus. Chest/axilla: Normal chest wall appearance and motion. Nontender with no deformity. No lesions are appreciated. Cardiovascular: Regular rate and rhythm with a normal S1 and S2. No gallops, murmurs, or rubs. Normal PMI, no JVD. No pulse deficits. Respiratory: Lungs have equal breath sounds bilaterally, clear to auscultation and percussion. No rales, rhonchi or wheezes noted. No increased work of breathing, no retractions or nasal flaring. Abdomen/GI: Soft, non-tender, with normal bowel sounds. No distension or tympany. No guarding or rebound. No evidence of tenderness throughout. Male : Normal genitalia with no discharge or lesions. Skin: Warm, dry with normal turgor. Normal color with no rashes, no lesions, and no evidence of cellulitis. Neuro: Awake and alert, GCS 15, oriented to person, place, time, and situation. Cranial nerves II-XII grossly intact. Motor strength 5/5 in all extremities. Sensory grossly intact. Cerebellar exam normal. Normal gait. Psych: Awake, alert, with orientation to person, place and time. Behavior, mood, and affect are within normal limits. 14:04 Back: ROM is painful, with flexion, with extension, normal spinal alignment noted, CVA tenderness, that is mild, vertebral tenderness, 14:04 Musculoskeletal/extremity: Extremities: grossly normal except: noted in the back and left leg: decreased ROM, pain, 14:16 ECG was reviewed by the Attending Physician. [facility] Vital Signs: 12:31 BP 111 / 87; Pulse 70; Resp 16; Temp 98.4(O); Pulse Ox 100% on R/A; Weight 68.04 kg; cm10 Height 5 ft. 9 in. ; Pain 5/10; 13:00 BP 132 / 68; Pulse 61; Resp 16; Pulse Ox 100% ; cm10 13:30 BP 152 / 78; Pulse 72; Resp 16; Pulse Ox 100% on R/A; cm10 13:58 Pain 0/10; cm10 14:00 BP 155 / 85; Pulse 73; Resp 16; Pulse Ox 100% ; cm10 12:31 Body Mass Index 22.15 (68.04 kg, 175.26 cm) cm10 12:31 Pain Scale: Adult cm10 13:58 Pain Scale: Adult cm10 MDM: 12:29 Medical Screening Exam initiated [facility] 14:07 Differential diagnosis: hip fracture, intertrochanteric fracture, femoral neck hemanth fracture, femoral shaft fracture, bursitis, arthritis, arthritis, chronic back pain, Fatigue Hydronephrosis Osteoarthritis Osteomalacia Osteoporosis. Data reviewed: vital signs, nurses notes, lab test result(s), EKG, radiologic studies, CT scan, plain films. Consideration of Admission/Observation Escalation of care including admission/observation considered. I considered the following discharge prescriptions or medication management in the emergency department Medications were administered in the Emergency Department. See MAR. Independent interpretation of the following test(s) in the Emergency Department EKG: See my EKG interpretation above. Test considered but Not performed: MRI: mri lumbar spiine. Care significantly affected by the following chronic conditions: Hypertension, cad, fall risk, l 1 compression fx. 12 12:34 Order name: CBC with Diff; Complete Time: 13:55 hemanth 12 12:34 Order name: Comprehensive Metabolic Panel; Complete Time: 13:55 hemanth 01/08 12:34 Order name: Troponin High Sensitivity; Complete Time: 13:55 hemanth 12 12:34 Order name: Urinalysis w/ reflexes; Complete Time: 14:14 hemanth 01/08 12:34 Order name: CT Lumbar Spine Wo Con; Complete Time: 13:55 hemanth 01/08 12:34 Order name: Pelvis XRAY; Complete Time: 13:55 hemanth 12 12:34 Order name: Hip Left 2 View XRAY; Complete Time: 13:55 hemanth 12 12:45 Order name: C Spine Wo Con; Complete Time: 13:55 EDMS 01/08 12:34 Order name: EKG - Nurse/Tech; Complete Time: 12:58 hemanth EC:16 Rate is 63 beats/min. Rhythm is regular. QRS [place] is Normal. IN interval is prolonged [facility] at 214 msec. QRS interval is normal. QT interval is normal. No Q waves. T waves are Normal. No ST changes noted. Clinical impression: NSR w/ Non-specific ST/T Changes and No evidence of ischemia. Interpreted by me. Reviewed by me. Administered Medications: 13:04 Drug: NS 0.9% IV 500 ml 500 ml IV at 1 bolus once; to be given as a bolus over 30 cm10 minutes Volume: 500 ml; Route: IV; Rate: 1 bolus; Site: right forearm; 13:58 Follow up: Response: No adverse reaction; IV Status: Completed infusion; IV Intake: cm10 500ml 13:04 Drug: morphine IVP or IV 2 mg IVP once over 4 mins Route: IVP; Infused Over: 4 mins; cm10 Site: right forearm; 13:58 Follow up: Pain 0/10 Adult; Response: No adverse reaction; Pain is decreased cm10 13:04 Drug: Ondansetron IVP 4 mg IVP once; over 2 minutes Route: IVP; Site: right forearm; cm10 13:58 Follow up: Response: No adverse reaction cm10 13:04 Drug: Decadron - Dexamethasone IVP 10 mg IVP once Route: IVP; Site: right forearm; cm10 13:58 Follow up: Response: No adverse reaction cm10 Disposition Summary: 01/09/24 14:10 Discharge Ordered Notes: Location: Home hemanth Problem: new hemanth Symptoms: have improved hemanth Condition: Stable hemanth Diagnosis - Fall on same level, unspecified hemanth - Fracture of lumbar vertebra - MODERATE SUBACUTE FRACTURE hemanth - Sciatica hemanth - Sciatica, left side hemanth - Pain in left hip hemanth Followup: hemanth - With: Private Physician - When: 2 - 3 days - Reason: Recheck today's complaints, Continuance of care, Re-evaluation by your physician Followup: hemanth - With: Anthony Dean MD - When: 2 - 3 days - Reason: Recheck today's complaints, Re-evaluation by your physician Discharge Instructions: - Discharge Summary Sheet hemanth - Joint Pain hemanth - Fall Prevention in the Home, Adult hemanth - Musculoskeletal Pain hemanth - Pain Without a Known Cause heamnth - Sciatica hemanth - Lumbar Spine Fracture hemanth - Fall Prevention in the Home, Adult, [id number] hemanth - Sciatica, [id number] hemanth - Joint Pain, [id number] hemanth - Radicular Pain [facility] Forms: - Medication Reconciliation Form [facility] - Antibiotic Education hemanth - Prescription Opioid Use [facility] - Patient Portal Instructions [facility] - Leadership Thank You Letter [facility] Prescriptions: - acetaminophen-codeine 300-30 mg Oral tablet - take 1 tablet ORAL route every 4 to 6 hours as needed for pain; 20 tablet; hemanth Refills: 0, Product Selection Permitted - dexamethasone 4 mg Oral tablet - take 1 tablet ORAL route once daily; 4 tablet; Refills: 0, Product Selection hemanth Permitted - diclofenac sodium 25 mg Oral tablet, delayed release (enteric coated) - take 1 tablet ORAL route 3 times per day; 21 tablet; Refills: 0, Product [facility] Selection Permitted - methocarbamol 500 mg Oral tablet - take 1 tablet ORAL route 4 times per day for 7 days; 28 tablet; Refills: 0, [facility] Product Selection Permitted Signatures: Dispatcher [employer] EDKush Sepulveda MD MD cha Martinez, Clarissa RN RN cm10 Corrections: (The following items were deleted from the chart) 12:34 12:34 CBC+H.LAB.BRZ ordered. EDMS EDMS 12:34 12:34 COMPREHENSIVE METABOLIC PANEL+C.LAB.BRZ ordered. EDMS EDMS 12:34 12:34 Troponin High Sensitivity+C.LAB.BRZ ordered. EDMS EDMS 12:34 12:34 Urinalysis+U.LAB.BRZ ordered. EDMS EDMS 12:34 12:34 Spine Lumbar Wo Con+CT.RAD.BRZ ordered. EDMS EDMS 12:34 12:34 Pelvis+RAD.RAD.BRZ ordered. EDMS EDMS 12:34 12:34 Hip Left 2 View+RAD.RAD.BRZ ordered. EDMS EDMS
[2024-01-09 18:34] VITALS: TEMP 98.4; O2SAT 100
[2024-01-09 18:52] VITALS: BP 155/85
== END 2024-01-09 14:47 | disposition home or self-care (01) ==
LOC: ER 12:27
DX: S32.019A Unspecified fracture of first lumbar vertebra, initial encounter for closed fracture (principal); M54.32 Sciatica, left side; M25.552 Pain in left hip; W18.30XA Fall on same level, unspecified, initial encounter; I10 Essential (primary) hypertension; Z95.1 Presence of aortocoronary bypass graft
CPT/HCPCS: 96361; 85025; 81001; 36415; 84484; 80053; 72131; 72125; 72170; 73502; 96375; 96374; 99285; J1100; J2270; J2405; J7040

== ENCOUNTER 2024-01-15 06:27 | Inpatient (IN) | payer OTHER ==
[2024-01-15 07:25] LABS: Absolute Eosinophils 0.2 K/uL (0-0.5); Absolute Lymphocytes (CBC) 1.2 K/uL (0.7-4.9); Absolute Monocytes 1.4 K/uL (0.1-1.3); Absolute Neutrophil 15.7 K/uL (1.8-8.0); Basophils % 0.2 % (0-1.3); Eosinophils % 0.9 % (0-4.4); Hemoglobin 11.4 g/dL (13.6-17.9); Lymphocytes % 6.7 % (15.3-44.8); MCH 33.2 pg (27.0-35.0); MCHC 34.6 g/dL (32.0-36.0); MCV 96.2 fL (80-100); MPV 7.2 fL (7.6-11.3); Monocytes % 7.8 % (3.3-12.3); Neutrophils % 84.4 % (41.7-73.7); Platelets 418 thou/uL (152-406); RBC Red Blood Cell Count 3.43 M/uL (4.33-5.43); Red Cell Distribution Width 14.3 % (12.1-15.2)
[2024-01-15 07:26] LABS: PT Prothrombin Time 15.3 SECONDS (9.4-12.5); Protime INR 1.38
[2024-01-15] MEDS ORDERED: LIDOCAINE HCL JELLY 2% 6 ML SYRINGE TOP ONE (07:41)
[2024-01-15 08:53] LABS: Albumin/Globulin Ratio 0.9 (1.1-1.8); Anion Gap 11.7 mEq/L (5.0-15.0); Bilirubin Total 1.2 mg/dL (0.2-1.0); Globulin 3.4 g/dL (2.3-3.5); Potassium 3.7 mEq/L (3.5-5.1); Protein, Total 6.4 g/dL (6.4-8.2)
--- NOTE | 2024-01-15 09:46 | RAD REPORT ---
EXAMINATION: CT Abdomen Pelvis W Contrast CLINICAL INDICATION: Male, 84 years old. rectal pain TECHNIQUE: CT abdomen and pelvis was performed, after the administration of IV contrast, as per [facility] protocol. Axial, sagittal and coronal reconstructions were obtained. One or more of the following dose reduction techniques were used: Automated exposure control, adjustment of the mA and k V according to patient size, and iterative reconstruction. Unless otherwise specified, incidental findings do not require dedicated imaging follow-up. COMPARISON: 01/06/2024 FINDINGS: LOWER CHEST: Mild cardiomegaly. Subsegmental dependent opacities, favored to represent atelectasis. T race left pleural effusion. LIVER: Normal in size and contour. No focal lesion. BILIARY SYSTEM: No suspicious abnormalities. SPLEEN: Normal size. No focal lesion. PANCREAS: No mass, ductal dilation, or ra-pancreatic fluid. ADRENALS: Normal; no mass. KIDNEYS: Normal size and contour. Mild prominence of the renal pelves and ureters, may relate to retr ograde reflux. URINARY BLADDER: Marked distention. Small bladder diverticula, including a left trigonal diverticulum or ureterocele. Mild prominence of the renal pelves and ureters, may relate to retrograde reflux. GASTROINTESTINAL TRACT: No evidence of free air, significant intra-abdominal free fluid, bowel obstru ction or abscess. Moderate to large stool burden throughout the sigmoid colon and rectum. Wall thickening along the rectum with mild presacral edema. APPENDIX: Normal appendix. LYMPH NODES: No lymphadenopathy. MUSCULOSKELETAL: Inferior endplate compression fracture with moderate height loss of the L1 vertebral body, stable. No other acute or suspicious osseous abnormality. ADDITIONAL FINDINGS: None. IMPRESSION: Moderate to large stool burden throughout the sigmoid colon and rectum. Wall thickening along the rec jeannette with mild presacral edema, suggesting stroke or a proctitis. Marked urinary bladder distention with small diverticula. Prominence of the renal pelves and ureters, may relate to retrograde reflux. Subsegmental dependent airspace opacities, favored to represent atelectasis. Trace left pleural effus ion.
--- NOTE | 2024-01-15 11:21 | EDPHYS ---
Physician Documentation [facility] Name: Arnold Roberts Age: 84 yrs Sex: Male : 1940 Arrival Date: 01/15/2024 Time: 06:27 Bed 4 Private MD: ED Physician Eric Narvaez HPI: 01/14 11:14 This 84 yrs old Male presents to ER via EMS with complaints of Rectal Bleeding, Rectal ms3 Pain. 11:14 Alejandra is an 84-year-old male who presents to the Emergency Department with complaints ms3 of rectal pain. He reports that the pain started yesterday and describes it as burning like fire. The pain becomes an 8 out of 10 on the pain scale, particularly when having a bowel movement. Alejandra recently underwent fecal disimpaction, and he suspects that during the procedure the intestine may have been scratched, leading to his current symptoms. He denies any rectal bleeding but notes a burning sensation. He attempted to alleviate the pain by applying Vaseline, which provided some relief. He reports significant discomfort that interfered with his sleep last night.. Historical: - Allergies: 06:48 No Known Allergies; mt4 - PMHx: 06:48 coronary atherosclerosis; High Cholesterol; Hypertension; Thyroid problem; mt4 - PSHx: 06:48 Coronary Angioplasty; Stented artery; Coronary artery bypass graft; mt4 - Immunization history:: Adult Immunizations up to date. - Infectious Disease History:: Denies. - Social history:: Smoking status: Patient denies any tobacco usage or history of. ROS: 11:14 Constitutional: Negative for fever, and chills. Cardiovascular: Negative for chest ms3 pain, and palpitations. Respiratory: Negative for shortness of breath, cough, wheezing, and pleuritic chest pain, Abdomen/GI: Negative for abdominal pain, nausea, vomiting, diarrhea, and constipation, 11:14 Skin: Negative for injury, rash, and discoloration, 11:14 Abdomen/GI: Positive for constipation, Exam: 11:14 Constitutional: This is a well developed, well nourished patient who is awake, alert, ms3 and in no acute distress. Chest/axilla: Normal chest wall appearance and motion. Nontender with no deformity. Cardiovascular: Regular rate and rhythm with a normal S1 and S2. No gallops, murmurs, or rubs. Normal PMI, no JVD. No pulse deficits. Respiratory: Lungs have equal breath sounds bilaterally, clear to auscultation and percussion. No rales, rhonchi or wheezes noted. No increased work of breathing, no retractions or nasal flaring. 11:14 Abdomen/GI: Inspection: abdomen appears normal, Bowel sounds: normal, Rectal exam: Stool: brown, mass, is not appreciated, swelling, is not appreciated, tenderness, that is mild, fecal impaction, that is moderate, Zayra Mitchell, OMS III, Vital Signs: 06:38 BP 124 / 72; Pulse 67; Resp 18; Temp 98.2; Pulse Ox 99% on R/A; Weight 68.04 kg (R); mt4 Height 5 ft. 9 in. (R); Pain 5/10; 06:48 BP 124 / 72; Temp 98.2(O); Pulse Ox 99% on R/A; mt4 06:38 Body Mass Index 22.15 (68.04 kg, 175.26 cm) mt4 06:38 Pain Scale: Adult mt4 MDM: 07:30 Medical Screening Exam initiated ms3 08:00 ED course: Digital disimpaction performed with removal of moderate amount of stool. ms3 Will give soap suds enema. 11:14 Differential diagnosis: fissure, Constipation vs Fecal Impaction. Data reviewed: vital ms3 signs, nurses notes, lab test result(s), radiologic studies, and as a result, I will admit patient. Consideration of Admission/Observation Patient was admitted/placed on observation. Management of patient was discussed with the following: Hospitalist: Dr Valenzuela. Counseling: I had a detailed discussion with the patient and/or guardian regarding the historical points, exam findings, and any diagnostic results supporting the discharge/admit diagnosis, lab results, radiology results, the need for further work-up and treatment in the hospital. 01/14 06:47 Order name: CBC with Diff; Complete Time: 07:30 sp4 01/14 06:47 Order name: CMP; Complete Time: 10:11 sp4 01/14 06:47 Order name: Lipase; Complete Time: 10:11 sp4 01/14 06:47 Order name: PT-INR; Complete Time: 07:30 sp4 01/14 06:47 Order name: Type And Screen sp4 01/14 11:19 Order name: Blood Culture Adult (2) ms3 01/14 13:03 Order name: Urinalysis w/ reflexes EDMS 01/14 13:03 Order name: Basic Metabolic Panel EDMS 01/14 13:03 Order name: Basic Metabolic Panel EDMS 01/14 13:03 Order name: Basic Metabolic Panel EDMS 01/14 13:03 Order name: Basic Metabolic Panel EDMS 01/14 13:03 Order name: Basic Metabolic Panel EDMS 01/14 13:03 Order name: Basic Metabolic Panel EDMS 01/14 13:03 Order name: CBC with Automated Diff EDMS 01/14 13:03 Order name: CBC with Automated Diff EDMS 01/14 13:03 Order name: CBC with Automated Diff EDMS 01/14 13:03 Order name: CBC with Automated Diff EDMS 01/14 13:03 Order name: CBC with Automated Diff EDMS 01/14 13:03 Order name: CBC with Automated Diff EDMS 01/14 13:03 Order name: Magnesium EDMS 01/14 13:03 Order name: Magnesium EDMS 01/14 13:03 Order name: Magnesium EDMS 01/14 13:03 Order name: Magnesium EDMS 01/14 13:03 Order name: Magnesium EDMS 01/14 13:03 Order name: Magnesium EDMS 01/14 13:03 Order name: Phosphorus EDMS 01/14 13:03 Order name: Phosphorus EDMS 01/14 13:03 Order name: Phosphorus EDMS 01/14 13:03 Order name: Phosphorus EDMS 01/14 13:03 Order name: Phosphorus EDMS 01/14 13:03 Order name: Phosphorus EDMS 01/14 07:30 Order name: CT Abd/Pelvis - IV Contrast Only; Complete Time: 10:11 ms3 01/14 13:03 Order name: CONS Physician Consult EDMS 01/14 06:47 Order name: IV Saline Lock; Complete Time: 07:14 sp4 01/14 06:47 Order name: Labs collected and sent; Complete Time: 07:14 sp4 Administered Medications: 09:00 Drug: Lidocaine Mucous Membrane Gel 2 % 1 application Mucous Membrane once Route: iw Mucous Membrane; 10:11 Drug: soap suds enem 1 kit [place] once Route: MO; iw 11:10 Follow up: Response: No adverse reaction iw 13:30 Drug: soap suds enem 1 kit [place] once Route: MO; iw 16:02 Drug: Ciprofloxacin IVPB 400 mg 200 ml IVPB once over 60 mins Volume: 200 ml; Route: iw IVPB; Infused Over: 60 mins; Site: right antecubital; 17:00 Follow up: IV Status: Completed infusion iw 16:02 Drug: metroNIDAZOLE IVPB 500 mg 100 ml IVPB at 200 ml/hr once over 30 mins Volume: 100 iw ml; Route: IVPB; Rate: 200 ml/hr; Infused Over: 30 mins; Site: right antecubital; 16:40 Follow up: IV Status: Completed infusion iw Disposition Summary: 01/15/24 11:20 Hospitalization Ordered Notes: Hospitalization Status: Inpatient Admission ms3 Provider: Jonnathan Valenzuela ms3 Condition: Stable ms3 Problem: new ms3 Symptoms: have improved ms3 Bed/Room Type: Standard ms3 Location: Telemetry/MedSurg (Inpatient)(01/15/24 16:41) bd Room Assignment: 405(01/15/24 16:41) bd Diagnosis - Proctitis ms3 - Leukocytosis ms3 - Rectal pain ms3 - Fecal impaction ms3 Forms: - Medication Reconciliation Form ms3 - SBAR form ms3 - Leadership Thank You Letter ms3 Signatures: Dispatcher [employer] EDMS Elsie Hernandez Irene, RN RN Eric Hawkins DO DO ms3 Go Amezquita MD MD sp4 Ten Cabrera RN RN mt4 Corrections: (The following items were deleted from the chart) 06:47 06:47 CBC+H.LAB.BRZ ordered. EDMS EDMS 06:47 06:47 COMPREHENSIVE METABOLIC PANEL+C.LAB.BRZ ordered. EDMS EDMS 06:47 06:47 LIPASE+C.LAB.BRZ ordered. EDMS EDMS 06:47 06:47 Abdomen Pelvis Wo Con+CT.RAD.BRZ ordered. EDMS EDMS 06:48 06:48 PROTIME (+INR)+COAG.LAB.BRZ ordered. EDMS EDMS 06:48 06:48 TYPE AND SCREEN+BB.LAB.BRZ ordered. EDMS EDMS 14:05 11:20 Telemetry/MedSurg (Inpatient) ms3 bd 14:05 11:20 ms3 bd 16:41 14:05 BR ER HOLD bd bd 16:41 14:05 ERHOLD- bd bd
--- NOTE | 2024-01-15 11:21 | ER ---
Nurse's Notes [facility] Name: Arnold Roberts Age: 84 yrs Sex: Male : 1940 Arrival Date: 01/15/2024 Time: 06:27 Bed 4 Private MD: Diagnosis: Proctitis;Leukocytosis;Rectal pain;Fecal impaction Presentation: 01/14 06:38 Chief complaint: Patient states: patient states rectal pain, increase pain with bowel mt4 movements and spotting blood. Rectal pain is intermittent 5/10 sharp and burning. Denies nausea or vomiting, started yesterday EMS states: PER EMS: rectal pain, increase pain with bowel movements and spotting of blood since yesterday. Coronavirus screen: At this time, the client does not indicate any symptoms associated with coronavirus-19. Ebola Screen: No symptoms or risks identified at this time. Initial Sepsis Screen: Does the patient meet any 2 criteria? No. Patient's initial sepsis screen is negative. Does the patient have a suspected source of infection? No. Patient's initial sepsis screen is negative. Risk Assessment: Do you want to hurt yourself or someone else? Patient reports no desire to harm self or others. Onset of symptoms was January 14, 2024. 06:38 Method Of Arrival: EMS mt4 06:38 Acuity: ORTIZ 3 mt4 Triage Assessment: 06:48 General: Appears in no apparent distress. comfortable, Behavior is calm, cooperative, mt4 appropriate for age. Pain: Complains of pain in buttocks Pain currently is 5 out of 10 on a pain scale. Quality of pain is described as burning, sharp, Pain began 1 day ago. Is intermittent. Neuro: Level of Consciousness is awake, alert, obeys commands, Oriented to person, place, time, Speech is normal, Facial symmetry appears normal. Cardiovascular: Capillary refill < 3 seconds. Respiratory: Airway is patent Respiratory effort is even, unlabored, Respiratory pattern is regular. GI: Abdomen is non-distended, Rectal exam: Deferred to physician Bowel sounds present X 4 quads. Reports. : Denies burning with urination. Musculoskeletal: Capillary refill < 3 seconds, Range of motion: intact in all extremities. Historical: - Allergies: 06:48 No Known Allergies; mt4 - PMHx: 06:48 coronary atherosclerosis; High Cholesterol; Hypertension; Thyroid problem; mt4 - PSHx: 06:48 Coronary Angioplasty; Stented artery; Coronary artery bypass graft; mt4 - Immunization history:: Adult Immunizations up to date. - Infectious Disease History:: Denies. - Social history:: Smoking status: Patient denies any tobacco usage or history of. Assessment: 07:30 General: Appears uncomfortable, Behavior is cooperative, anxious. Pain: Complains of iw pain in rectum, lower abdomen. Neuro: Level of Consciousness is awake, alert, obeys commands, Oriented to person, place, time, situation, Moves all extremities. Cardiovascular: Patient's skin is warm and dry. Respiratory: Respiratory effort is even, unlabored, Respiratory pattern is regular. GI: Reports constipation, rectal bleeding. Derm: Skin is fragile, is thin. Musculoskeletal: Range of motion: intact in all extremities. 08:56 Reassessment: pt up to bathroom , abd pain. iw 10:15 Reassessment: soaps suds enema complete, pt tolerated well but not significant bowel iw movement made at this time. 11:17 Reassessment: ot screaming for nurse, requests for someone to digitally remove the iw stool from his rectum , Dr. Narvaez notified, new order for 2nd soaps suds enema placed. 12:52 Reassessment: stopped second enema due to bleeding, Joanne PURVIS notified. iw Vital Signs: 06:38 BP 124 / 72; Pulse 67; Resp 18; Temp 98.2; Pulse Ox 99% on R/A; Weight 68.04 kg (R); mt4 Height 5 ft. 9 in. (R); Pain 5/10; 06:48 BP 124 / 72; Temp 98.2(O); Pulse Ox 99% on R/A; mt4 06:38 Body Mass Index 22.15 (68.04 kg, 175.26 cm) mt4 06:38 Pain Scale: Adult mt4 ED Course: 06:35 Patient arrived in ED. jj6 06:48 Triage completed. mt4 06:48 Arm band placed on right wrist. mt4 06:52 Patient has correct armband on for positive identification. Bed in low position. Call mt4 light in reach. Side rails up X 1. 06:53 No provider procedures requiring assistance completed. Inserted saline lock: 20 gauge mt4 in right antecubital area, using aseptic technique. 06:53 Inserted saline lock: Blood collected. Flushed with 10 mL NS. mt4 07:06 Eric Narvaez DO is Attending Physician. ms3 07:08 Report given to Negar, LLOYD. bm8 07:24 Sara Chen, RN is Primary Nurse. iw 08:25 CT Abd/Pelvis - IV Contrast Only In Process Unspecified. EDMS 11:19 Jonnathan Valenzuela is Hospitalizing Provider. ms3 Administered Medications: 09:00 Drug: Lidocaine Mucous Membrane Gel 2 % 1 application Mucous Membrane once Route: iw Mucous Membrane; 10:11 Drug: soap suds enem 1 kit [place] once Route: [place]; iw 11:10 Follow up: Response: No adverse reaction iw 13:30 Drug: soap suds enem 1 kit [place] once Route: [place]; iw 16:02 Drug: Ciprofloxacin IVPB 400 mg 200 ml IVPB once over 60 mins Volume: 200 ml; Route: iw IVPB; Infused Over: 60 mins; Site: right antecubital; 17:00 Follow up: IV Status: Completed infusion iw 16:02 Drug: metroNIDAZOLE IVPB 500 mg 100 ml IVPB at 200 ml/hr once over 30 mins Volume: 100 iw ml; Route: IVPB; Rate: 200 ml/hr; Infused Over: 30 mins; Site: right antecubital; 16:40 Follow up: IV Status: Completed infusion iw Outcome: 11:20 Decision to Hospitalize by Provider. ms3 17:51 Patient left the ED. iw Signatures: Dispatcher [employer] EDMS Sara Chen, LLOYD RN iw Eric Narvaez DO DO ms3 Viri Waters jj6 Akira Montez, RN RN bm8 Ten Cabrera, RN RN mt4
[2024-01-15] MEDS ORDERED: ACETAMINOPHEN 325 MG TABLET PO PRN (12:57)
[2024-01-15] MEDS: NA CHLORIDE 0.9% 1,000 ML IV SCH (13:00)
--- NOTE | 2024-01-15 13:02 | P.HP ---
Certification for Inpatient Patient admitted to: Inpatient With expected LOS: >2 Midnights Patient will require the following post-hospital care: None Practitioner: I am a practitioner with admitting privileges, knowledge of patient current condition, hospital course, and medical plan of care. Services: Services provided to patient in accordance with Admission requirements found in Title 42 Section 412.3 of the Code of Federal Regulations Patient History Date of Service: 01/15/24 Reason for admission: Stool impaction with proctitis History of Present Illness: Arnold Roberts is an 84-year-old male with past medical history CAD status post CABG/stent, hypercholesterolemia, hypertension, hypothyroidism who presents to the ED with chief complaint of rectal pain. He reports severe pain started yesterday. Reports a fecal disimpaction outpatient causing discomfort which he treated with vaseline. While in the ED, soap daina enema was administered. Laboratory evaluation significant for WBC 18.6, sodium 129, T. bili 1.2, lipase 11, alk phos 124. CT abd/pelvis reports "Moderate to large stool burden throughout the sigmoid colon and rectum. Wall thickening along the rectum with mild presacral edema, suggesting stroke or a proctitis. Marked urinary bladder distention with small diverticula. Prominence of the renal pelves and ureters, may relate to retrograde reflux. Subsegmental dependent airspace opacities, favored to represent atelectasis. Trace left pleural effusion." Arnold will be admitted to hospitalist service for further evaluation of Acute constipation with proctitis. Allergies No Known Allergies Allergy (Verified 09/14/23 06:51) Home Medications: Amlodipine Besylate 2.5 mg PO DAILY 12/19/19 Apixaban [Eliquis] 5 mg PO BID 08/06/23 Atorvastatin Calcium 40 mg PO BEDTIME 08/06/23 Gabapentin 300 mg PO TID 08/06/23 Levothyroxine Sodium 100 mcg PO DAILY 08/06/23 Metoprolol Succinate [Toprol Xl*] 12.5 mg PO DAILY 08/06/23 Montelukast [Singulair*] 10 mg PO DAILY 08/06/23 Multivit with Iron,Minerals [Multivitamins with Iron] 1 tab PO DAILY 08/06/23 Niacin (Inositol Niacinate) [Niacin 500 mg Capsule] 1 tab PO DAILY 08/06/23 Omeprazole 20 mg PO DAILY 08/06/23 Oxybutynin Chloride [Oxybutynin Chloride ER] 5 mg PO DAILY 08/06/23 Sucralfate [Carafate] 1 gm PO DAILY 6PM 08/06/23 Zolpidem Tartrate [Ambien] 10 mg PO BEDTIME 09/13/23 Cevimeline HCl 30 mg PO TID 01/15/24 Clotrimazole [Ringworm] 10 mg PO 5XD 01/15/24 Sodium Bicarbonate 650 mg PO TID 01/15/24 - Past Medical/Surgical History Diabetic: No -: Hypertension -: CAD -: Hyperlipidemia -: Hypothyroidism -: CABG -: stent x1 -: Hernia Psychosocial/ Personal History: Recently , lives at home - Social History Alcohol use: No CD- Drugs: No Caffeine use: Yes Review of Systems Gastrointestinal: Abdominal Pain, Other (Rectal burning) Musculoskeletal: Back Pain Physical Examination - Physical Exam General: Alert, In no apparent distress, Oriented x3 HEENT: Atraumatic, Normocephalic, PERRLA Neck: Supple, 2+ carotid pulse no bruit Respiratory: Clear to auscultation bilaterally, Normal air movement Cardiovascular: No edema, Normal pulses, Regular rate/rhythm, Normal S1 S2 Capillary refill: <2 Seconds Gastrointestinal: Hypoactive, Soft and benign, Non-distended Musculoskeletal: No clubbing Integumentary: No rashes Neurological: Normal speech, Normal tone - Studies Laboratory Data (last 24 hrs) 01/15/24 01/15/24 01/15/24 07:00 07:00 07:00 WBC 18.60 H Hgb 11.4 L Hct 33.0 L Plt Count 418 H PT 15.3 H INR 1.38 Sodium 129 L Potassium 3.7 BUN 20 H Creatinine 0.95 Glucose 108 H Total Bilirubin 1.2 H AST 18 ALT 29 Alkaline Phosphatase 124 H Lipase 11 L Assessment and Plan - Plan Assessment and plan Acute constipation with proctitis 2/2 moderate sigmoid fecal impaction Leukocytosis Hyponatremia -CT abd/pelvis reports "Moderate to large stool burden throughout the sigmoid colon and rectum. Wall thickening along the rectum with mild presacral edema, suggesting stroke or a proctitis -WBC 18.6, sodium 129 -Soapsuds enema in the ED -Low fiber diet, Dulcolax -Gentle IV fluids -Cipro and Flagyl -Follow blood cultures -Dr. Mendoza consulted Pleural Effusion -CT abd/pelvis reports trace left pleural effusion CAD status post CABG and stents -Continue home medication -Continuous telemetry HTN/HLD -Continue home medication DVT PPx Eliquis Full code LOS 2 days Discharge Plan: Home Plan to discharge in: 48 Hours - Advance Directives Does patient have a Living Will: No Does patient have a Durable POA for Healthcare: No
[2024-01-15] MEDS ORDERED: METRONIDAZOLE 500mg IVPB 500 MG/100 ML BAG IV ONE (15:44)
[2024-01-15] MEDS ORDERED: CIPROFLOXACIN 400mg IV 400 MG/200 ML BAG IV ONE (15:44)
[2024-01-15] MEDS ORDERED: BISACODYL E.C. 5 MG TAB PO PRN (16:18)
[2024-01-15] MEDS ORDERED: NA CHLORIDE 0.9% 1,000 ML ONE (17:02)
[2024-01-15] MEDS: METRONIDAZOLE 500mg IVPB 500 MG/100 ML BAG IV SCH (18:19)
[2024-01-15 18:26] VITALS: O2SAT 99
[2024-01-15] MEDS: SODIUM BICARB 325 MG TAB PO SCH (20:15)
[2024-01-15] MEDS: APIXABAN 5 MG TABLET PO SCH (20:15)
[2024-01-15] MEDS: CIPROFLOXACIN 400mg IV 400 MG/200 ML BAG IV SCH (20:15)
[2024-01-15] MEDS: GABAPENTIN 300 MG CAP PO SCH (20:16)
[2024-01-15] MEDS: ATORVASTATIN 40 MG TAB PO SCH (20:18)
--- NOTE | 2024-01-15 20:52 | CON ---
Date of Consultation: 01/15/2024 Reason For Consultation: Constipation, fecal impaction. History Of Present Illness: The patient is an 84-year-old gentleman who comes in to the emergency ro om with abdominal pain with bowel movement and also bright red bleeding from the rectum with bowel mo vement. The patient states that he had pain that started yesterday that was severe with a bowel move ment. He underwent a fecal disimpaction recently prior to arriving in the ER and once in the ER, he had soapsuds enema and a fecal disimpaction as well. He initially did not have any bowel movement, b ut after some time, the patient had a large bowel movement, feels much better. He has had no nausea or vomiting now. The patient denies any sore throat, runny nose, cough, headaches, dizziness, or katie st pain. No fevers or chills. Blood as described in the HPI. Review of Systems: Otherwise, unremarkable. Past Medical History: High cholesterol, hypertension, hypothyroidism, coronary artery disease. Past Surgical History: CABG, stented arteries, coronary angioplasty. Allergies: NO ALLERGIES. Social History: The patient does not smoke or drink alcohol. Family History: Noncontributory. Physical Examination: Vital Signs: Stable. He is afebrile. General: He is awake, alert, oriented x3. Head and Neck: No masses. No JVD. Throat clear. Neck is supple. Chest: Clear. Heart: S1, S2. Abdomen: Soft, nondistended, nontender. Positive bowel sounds. Rectal: Deferred, at this time, as patient had a large bowel movement and rectal examination by the ER physician while doing the disimpaction. Extremities: Adequately perfused. Nontender. Neuro: Nonfocal. Laboratory Data: Shows leukocytosis, white count is 18.6 with a left shift. INR is 1.38. Chemistry reviewed. Slightly hyponatremic at 129. Otherwise, the rest of the labs are unremarkable. CT of t he abdomen and pelvis reviewed. The patient has a large stool burden in his sigmoid colon and rectum . There is wall thickening along the rectum with mild presacral edema consistent with possible proct itis. Assessment: Constipation, proctitis, fecal impaction, and leukocytosis. Recommendations: This patient clinically has a benign abdomen. I would recommend high-fiber diet, a ntibiotics as he has leukocytosis with a proctitis, serial abdominal exam. No need for any surgical intervention, at this time. I would recommend a bowel regimen consisting of high-fiber diet, fiber s upplements, stool softeners. The plan of care was discussed with the hospitalist team. Reconsult Kaia pablo. At this point, patient does not have any need for surgical intervention. KATELYN/AYANA Voice ID: [id number] Report ID: [id number]
[2024-01-15] MEDS: CEVIMELINE HCL 30 MG PO SCH (21:00)
[2024-01-16] MEDS: ZOLPIDEM TARTRATE 10 MG TABLET PO ONE (00:06)
[2024-01-16 04:48] VITALS: BMI 22.1
[2024-01-16 07:38] LABS: Absolute Eosinophils 0.3 K/uL (0-0.5); Absolute Lymphocytes (CBC) 1.4 K/uL (0.7-4.9); Absolute Monocytes 1.2 K/uL (0.1-1.3); Absolute Neutrophil 10.8 K/uL (1.8-8.0); Basophils % 0.2 % (0-1.3); Eosinophils % 2.1 % (0-4.4); Hematocrit 33.2 % (39.6-49.0); Hemoglobin 11.4 g/dL (13.6-17.9); MCH 33.4 pg (27.0-35.0); MCHC 34.4 g/dL (32.0-36.0); MCV 96.9 fL (80-100); MPV 7.2 fL (7.6-11.3); Monocytes % 8.8 % (3.3-12.3); Neutrophils % 78.9 % (41.7-73.7); Platelets 359 thou/uL (152-406); RBC Red Blood Cell Count 3.42 M/uL (4.33-5.43); Red Cell Distribution Width 14.8 % (12.1-15.2)
[2024-01-16 07:46] LABS: Anion Gap 7.3 mEq/L (5.0-15.0); Magnesium 1.8 mg/dL (1.6-2.4); Phosphorus 2.4 mg/dL (2.5-4.9); Potassium 3.3 mEq/L (3.5-5.1)
[2024-01-16] MEDS ORDERED: PSYLLIUM 1 PKT PO SCH (09:00)
[2024-01-16] MEDS: POTASSIUM CL SA 10 MEQ TAB PO ONE (10:21)
[2024-01-16] MEDS: POTASS/SODIUM PHOSPHATE 1 PKT POWD.PACK PO SCH (10:22)
[2024-01-16] MEDS: LEVOTHYROXINE SOD 0.1 MG TAB PO SCH (10:23)
[2024-01-16] MEDS: AMLODIPINE 2.5 MG TAB PO SCH (10:23)
[2024-01-16] MEDS: PANTOPRAZOLE 40MG TABLET PO SCH (10:23)
[2024-01-16] MEDS: MAGNESIUM SULFATE 1 gm IVPB 1 GM/100 ML BAG IV ONE (10:24)
[2024-01-16] MEDS: ENOXAPARIN 40 MG/0.4 ML SQ SCH (10:24)
[2024-01-16] MEDS: METOPROLOL XL 25 MG TAB PO SCH (10:24)
[2024-01-16 11:30] VITALS: BP 137/65; TEMP 97.8
--- NOTE | 2024-01-16 11:46 | P.DS ---
Admission Date: 01/15/24 Discharge Date: 01/16/24 Disposition: ROUTINE DISCHARGE Discharge Condition: GOOD Reason for Admission: Stool impaction with proctitis Brief History of Present Illness: Diagnosis Acute constipation with proctitis 2/2 moderate sigmoid fecal impaction Leukocytosis Hyponatremia Pleural Effusion CAD status post CABG and stents HTN/HLD HPI 01/15/2024 Arnold Roberts is an 84-year-old male with past medical history CAD status post CABG/stent, hypercholesterolemia, hypertension, hypothyroidism who presents to the ED with chief complaint of rectal pain. He reports severe pain started yesterday. Reports a fecal disimpaction outpatient causing discomfort which he treated with vaseline. While in the ED, soap daina enema was administered. Laboratory evaluation significant for WBC 18.6, sodium 129, T. bili 1.2, lipase 11, alk phos 124. CT abd/pelvis reports "Moderate to large stool burden throughout the sigmoid colon and rectum. Wall thickening along the rectum with mild presacral edema, suggesting stroke or a proctitis. Marked urinary bladder distention with small diverticula. Prominence of the renal pelves and ureters, may relate to retrograde reflux. Subsegmental dependent airspace opacities, favored to represent atelectasis. Trace left pleural effusion." Arnold will be admitted to hospitalist service for further evaluation of Acute constipation with proctitis. Hospital Course: Arnold Roberts is a pleasant 84-year-old male with a past medical history significant for CAD status post CABG/stent, hypercholesterolemia, hypertension, hypothyroidism who was admitted to the [facility] on 01/15/2020 for acute constipation. Arnold presented to the ED with severe rectal pain. He reported constipation since the day BELT [employer]ESS[employer]. CT abd/pelvis revealed "moderate to large stool burden throughout the sigmoid colon and rectum... proctitis." He reports a digital fecal disimpaction outpatient with minimal relief. While in the ED, two soap daina enema with digital disimpaction provided. He was able to have a large bowel movement with complete relief, reports able to urinate well. Sodium level WNL, He reports having an appetite. He will need to continue on a low fiber diet with Dulcolax daily for the next few days while the proctitis heals. Physical therapy evaluated and determined he is at his baseline. On 01/16/2024, Arnold was seen on morning rounds and deemed medically stable for discharge. Arnold was discharged with instructions to schedule follow-up appointments with PCP and Dr. Mendoza. Arnold was provided prescriptions for Flagyl and Dulcolax. Physical Exam General: Alert and Oriented x3, NAD HEENT: Atraumatic, Normocephalic, PERRLA Neck: Supple, 2+ carotid pulse no bruit Respiratory: Clear to auscultation bilaterally, Normal air movement Cardiovascular: No edema, Normal pulses, Regular rate/rhythm, Normal S1 S2 Capillary refill: <2 Seconds Gastrointestinal: Normal active bowel sounds Soft and benign on palpation, ND/NT Musculoskeletal: No clubbing Integumentary: No rashes Neurological: Normal speech, Normal tone Vital Signs/Physical Exam: Temp Pulse Resp BP Pulse Ox 97.8 F 72 18 137/65 100 01/16/24 11:29 01/16/24 11:29 01/16/24 11:29 01/16/24 11:29 01/16/24 11:29 Laboratory Data at Discharge: WBC 13.80 thou/uL (4.3-10.9) H 01/16/24 06:55 Hgb 11.4 g/dL (13.6-17.9) L 01/16/24 06:55 Hct 33.2 % (39.6-49.0) L 01/16/24 06:55 Plt Count 359 thou/uL (152-406) 01/16/24 06:55 PT 15.3 SECONDS (9.4-12.5) H 01/15/24 07:00 INR 1.38 01/15/24 07:00 Sodium 134 mEq/L (136-145) L D 01/16/24 06:55 Potassium 3.3 mEq/L (3.5-5.1) L 01/16/24 06:55 BUN 17 mg/dL (7-18) 01/16/24 06:55 Creatinine 0.91 mg/dL (0.70-1.30) 01/16/24 06:55 Glucose 114 mg/dL (74-106) H 01/16/24 06:55 Phosphorus 2.4 mg/dL (2.5-4.9) L 01/16/24 06:55 Magnesium 1.8 mg/dL (1.6-2.4) 01/16/24 06:55 Total Bilirubin 1.2 mg/dL (0.2-1.0) H 01/15/24 07:00 AST 18 U/L (15-37) 01/15/24 07:00 ALT 29 U/L (16-61) 01/15/24 07:00 Alkaline Phosphatase 124 U/L (45-117) H 01/15/24 07:00 Lipase 11 U/L (13-75) L 01/15/24 07:00 Home Medications: Amlodipine Besylate 2.5 mg PO DAILY 12/19/19 Apixaban [Eliquis] 5 mg PO BID 08/06/23 Atorvastatin Calcium 40 mg PO BEDTIME 08/06/23 Gabapentin 300 mg PO TID 08/06/23 Levothyroxine Sodium 100 mcg PO DAILY 08/06/23 Metoprolol Succinate [Toprol Xl*] 12.5 mg PO DAILY 08/06/23 Montelukast [Singulair*] 10 mg PO DAILY 08/06/23 Multivit with Iron,Minerals [Multivitamins with Iron] 1 tab PO DAILY 08/06/23 Niacin (Inositol Niacinate) [Niacin 500 mg Capsule] 1 tab PO DAILY 08/06/23 Omeprazole 20 mg PO DAILY 08/06/23 Oxybutynin Chloride [Oxybutynin Chloride ER] 5 mg PO DAILY 08/06/23 Sucralfate [Carafate] 1 gm PO DAILY 6PM 08/06/23 Zolpidem Tartrate [Ambien*] 10 mg PO BEDTIME 09/13/23 Cevimeline HCl 30 mg PO TID 01/15/24 Clotrimazole [Ringworm] 10 mg PO 5XD 01/15/24 Sodium Bicarbonate 650 mg PO TID 01/15/24 bisacodyL [Dulcolax*] 10 mg PO DAILY PRN tab 01/16/24 metroNIDAZOLE [Flagyl] 375 mg PO BID 7 Days #14 cap 01/16/24 New Medications: metroNIDAZOLE [Flagyl] 375 mg PO BID 7 Days #14 cap Physician Discharge Instructions: 1. Please call and schedule a follow-up appointment with your PCP in 3-5 days - Please follow-up with your PCP for medication refills/adjustments 2. Please call and schedule a follow-up appointment with Dr. Mendoza in 2 weeks if needed 3. Continue low fiber diet -When proctitis has resolved and antibiotic has been completed resume high-fiber diet including Metamucil 4. No activity restrictions 5. Return to the ED if symptoms worsen New medications Flagyl 375 mg twice daily x 7 days Dulcolax 10 mg [id number] medication Diet: low fiber Activity: Ad garrett Followup: NONE,NONE [Primary Care Provider] - Aris Mendoza MD [ACTIVE - CAN ADMIT] - 1-2 Weeks
== END 2024-01-16 14:00 | disposition home or self-care (01) | DRG 394 ==
LOC: ER 06:27 → ERHOLD 12:57 → 4TH 17:04
PROVIDERS: ADMIT Internal Medicine; ATTEND Internal Medicine
DX: K62.89 Other specified diseases of anus and rectum (principal); E87.1 Hypo-osmolality and hyponatremia; J91.8 Pleural effusion in other conditions classified elsewhere; E78.00 Pure hypercholesterolemia, unspecified; I10 Essential (primary) hypertension; K56.41 Fecal impaction; E03.9 Hypothyroidism, unspecified; I25.10 Atherosclerotic heart disease of native coronary artery without angina pectoris; D72.829 Elevated white blood cell count, unspecified; Z95.1 Presence of aortocoronary bypass graft; Z95.5 Presence of coronary angioplasty implant and graft; Z79.01 Long term (current) use of anticoagulants; Z79.890 Hormone replacement therapy; Z79.899 Other long term (current) drug therapy
CPT/HCPCS: 36415; 74177; 80048; 80053; 83690; 83735; 84100; 85025; 85610; 96365; 96368; 97116; 97161; 97530; 99284; J0744; J1650; J3475; J7030; Q9967

== ENCOUNTER 2024-02-27 10:04 | Emergency (ER) | payer OTHER ==
--- NOTE | 2024-02-27 14:13 | EDPHYS ---
Physician Documentation [facility] Name: Arnold Roberts Age: 84 yrs Sex: Male : 1940 Arrival Date: 02/27/2024 Time: 10:04 Bed 6 Private MD: ED Physician Eric Narvaez HPI: 02/26 11:44 This 84 yrs old Male presents to ER via EMS with complaints of Abdominal Pain. ms3 11:44 Arnold Roberts is an 84-year-old male who presents to the Emergency Department with ms3 complaints of impacted bowels. He reports a history of chronic constipation and has experienced similar episodes multiple times, stating he has been to the hospital for this issue three to four times in the past. He mentions having tried various remedies including enemas and suppositories, with temporary relief. He last attempted an enema last night. Mr. Roberts reports a sensation of fullness in the abdomen and some burning sensation but denies experiencing nausea or vomiting. . Historical: - Allergies: 10:16 No Known Allergies; ph - PMHx: 10:16 coronary atherosclerosis; High Cholesterol; Hypertension; Thyroid problem; ph - PSHx: 10:16 Coronary Angioplasty; Coronary artery bypass graft; Stented artery; ph - Immunization history:: Adult Immunizations unknown. - Infectious Disease History:: Denies. - Social history:: Smoking status: unknown. ROS: 11:44 Constitutional: Negative for fever, and chills. Cardiovascular: Negative for chest ms3 pain, and palpitations. Respiratory: Negative for shortness of breath, cough, wheezing, and pleuritic chest pain, 11:44 Skin: Negative for injury, rash, and discoloration, 11:44 Abdomen/GI: Positive for abdominal pain, constipation, Exam: 11:44 Constitutional: This is a well developed, well nourished patient who is awake, alert, ms3 and in no acute distress. Cardiovascular: Regular rate and rhythm with a normal S1 and S2. No gallops, murmurs, or rubs. Normal PMI, no JVD. No pulse deficits. Respiratory: Lungs have equal breath sounds bilaterally, clear to auscultation and percussion. No rales, rhonchi or wheezes noted. No increased work of breathing, no retractions or nasal flaring. Skin: Warm, dry with normal turgor. Normal color with no rashes, no lesions, and no evidence of cellulitis. MS/ Extremity: Pulses equal, no cyanosis. Neurovascular intact. Full, normal range of motion. 11:44 Abdomen/GI: Inspection: abdomen appears normal, Bowel sounds: normal, Palpation: mild abdominal tenderness, in the left lower quadrant, Vital Signs: 10:22 BP 124 / 81; Pulse 72; Resp 18; Temp 97.8; Pulse Ox 100% on R/A; ph 11:30 BP 119 / 64; Pulse 67; Resp 18; Pulse Ox 99% ; ph 12:45 BP 127 / 86; Pulse 72; Resp 18; Pulse Ox 98% on R/A; ph 14:55 BP 118 / 70; Pulse 68; Resp 18; Temp 97.8; Pulse Ox 99% on R/A; ph MDM: 10:26 Medical Screening Exam initiated ms3 11:44 Differential diagnosis: Constipation. ms3 14:13 Data reviewed: vital signs, and as a result, I will discharge patient. I considered the ms3 following discharge prescriptions or medication management in the emergency department Medications were administered in the Emergency Department. See MAR. Counseling: I had a detailed discussion with the patient and/or guardian regarding the historical points, exam findings, and any diagnostic results supporting the discharge/admit diagnosis, the need for outpatient follow up, to return to the emergency department if symptoms worsen or persist or if there are any questions or concerns that arise at home. Special discussion: I discussed with the patient/guardian in detail that at this point there is no indication for admission to the hospital. It is understood, however, that if the symptoms persist or worsen the patient needs to return immediately for re-evaluation. ED course: Fecal disimpaction formed. After procedure patient states his symptoms have resolved. Patient to follow-up with primary care physician 2 to 3 days. Patient understands and agrees with plan. All questions were answered. Return precautions discussed include worsening symptoms, or any other concerns. Administered Medications: 12:16 Drug: soap suds enem 1 units WA once Route: WA; ph 14:57 Follow up: Response: No adverse reaction ph Disposition Summary: 02/27/24 14:12 Discharge Ordered Notes: Location: Home ms3 Condition: Stable ms3 Diagnosis - Fecal impaction ms3 Followup: ms3 - With: Private Physician - When: 2 - 3 days - Reason: Recheck today's complaints Discharge Instructions: - Discharge Summary Sheet ms3 - Fecal Impaction ms3 Forms: - Medication Reconciliation Form ms3 - Antibiotic Education ms3 - Prescription Opioid Use ms3 - Patient Portal Instructions ms3 - Leadership Thank You Letter ms3 Signatures: Meaghan Garcia RN RN ph Eric Narvaez DO DO ms3
--- NOTE | 2024-02-27 14:13 | ER ---
Nurse's Notes [facility] Name: Arnold Roberts Age: 84 yrs Sex: Male : 1940 Arrival Date: 02/27/2024 Time: 10:04 Bed 6 Private MD: Diagnosis: Fecal impaction Presentation: 02/26 10:14 Chief complaint: Patient states: Lower abdominal pain and constipation x 3-4 days, ph denies N/V, hx of bowel obstruction. Coronavirus screen: Vaccine status: Patient reports receiving the 2nd dose of the covid vaccine. Ebola Screen: No symptoms or risks identified at this time. Initial Sepsis Screen: Does the patient meet any 2 criteria? No. Patient's initial sepsis screen is negative. Does the patient have a suspected source of infection? No. Patient's initial sepsis screen is negative. Risk Assessment: Do you want to hurt yourself or someone else? Patient reports no desire to harm self or others. Onset of symptoms was February 27, 2024. 10:14 Method Of Arrival: EMS: [facility] 10:14 Acuity: ORTIZ 3 ph Triage Assessment: 10:23 General: Appears in no apparent distress. Behavior is calm, cooperative. Pain: ph Complains of pain in left lower quadrant. Neuro: Level of Consciousness is awake, alert, obeys commands, Oriented to person, place, time, situation. Cardiovascular: Capillary refill < 3 seconds in bilateral fingers Patient's skin is warm and dry. GI: Reports lower abdominal pain, constipation. Derm: Skin is pink, warm \T\ dry. Historical: - Allergies: 10:16 No Known Allergies; ph - PMHx: 10:16 coronary atherosclerosis; High Cholesterol; Hypertension; Thyroid problem; ph - PSHx: 10:16 Coronary Angioplasty; Coronary artery bypass graft; Stented artery; ph - Immunization history:: Adult Immunizations unknown. - Infectious Disease History:: Denies. - Social history:: Smoking status: unknown. Screenin:30 [facility] ED Fall Risk Assessment (Adult) History of falling in the last 3 months, ph including since admission Yes- single mechanical fall (1 pt) Confusion or Disorientation No (0 pts) Intoxicated or Sedated No (0 pts) Impaired Gait No (0 pts) Mobility Assist Device Used Yes (1 pt) Altered Elimination Yes (1 pt) Score/Fall Risk Level 3 or more points = High Risk Oriented to surroundings, Maintained a safe environment, Used ambulatory aids as needed (educated on \T\ assisted with). 14:54 Abuse screen: Denies threats or abuse. Denies injuries from another. Nutritional ph screening: No deficits noted. Tuberculosis screening: No symptoms or risk factors identified. Assessment: 11:00 General: SEE TRIAGE ASSESSMENT. ph 12:45 Reassessment: No BM after enema, ERP notified. ph Vital Signs: 10:22 BP 124 / 81; Pulse 72; Resp 18; Temp 97.8; Pulse Ox 100% on R/A; ph 11:30 BP 119 / 64; Pulse 67; Resp 18; Pulse Ox 99% ; ph 12:45 BP 127 / 86; Pulse 72; Resp 18; Pulse Ox 98% on R/A; ph 14:55 BP 118 / 70; Pulse 68; Resp 18; Temp 97.8; Pulse Ox 99% on R/A; ph ED Course: 10:14 Patient arrived in ED. ph 10:16 Triage completed. ph 10:16 Arm band placed on Patient placed in an exam room, on a stretcher. ph 10:17 Eric Narvaez DO is Attending Physician. ms3 10:37 Juan Ortiz, LLOYD is Primary Nurse. bp 11:00 Patient has correct armband on for positive identification. Placed in gown. Bed in low ph position. Call light in reach. Side rails up X 1. Pulse ox on. NIBP on. Door closed. Noise minimized. Warm blanket given. Pillow given. 14:30 Assisted provider with: digital disimpaction. ph 14:54 Patient did not have IV access during this emergency room visit. ph Administered Medications: 12:16 Drug: soap suds enem 1 units TN once Route: TN; ph 14:57 Follow up: Response: No adverse reaction ph Medication: 14:57 VIS not applicable for this client. ph Outcome: 14:12 Discharge ordered by . ms3 14:58 Discharged to home via wheelchair, with family, ph 14:58 Condition: good 14:58 Discharge instructions given to patient, Instructed on discharge instructions, follow up and referral plans. Demonstrated understanding of instructions, follow-up care, 14:58 Patient left the ED. ph Signatures: Meaghan Garcia, RN RN ph Juan Ortiz RN RN bp Solange, Eric, DO DO ms3
[2024-02-27 16:04] VITALS: TEMP 97.8
[2024-02-27 16:07] VITALS: BP 118/70; O2SAT 99
== END 2024-02-27 14:58 | disposition home or self-care (01) ==
LOC: ER 10:04
DX: K56.41 Fecal impaction (principal)
CPT/HCPCS: 99284

== ENCOUNTER 2024-03-23 09:06 | Emergency (ER) | payer OTHER ==
[2024-03-23] MEDS ORDERED: FLEET ENEMA ADULT PR ONE ×2 (09:25→10:13)
--- NOTE | 2024-03-23 11:31 | ER ---
Nurse's Notes [facility] Name: Arnold Roberts Age: 84 yrs Sex: Male : 1940 Arrival Date: 03/23/2024 Time: 09:06 Bed 15 Private MD: Diagnosis: Fecal impaction Presentation: 03/23 09:08 Chief complaint: EMS states: no BM for 5 days. Coronavirus screen: At this time, the ko1 client does not indicate any symptoms associated with coronavirus-19. Ebola Screen: No symptoms or risks identified at this time. Initial Sepsis Screen: Does the patient meet any 2 criteria? No. Patient's initial sepsis screen is negative. Does the patient have a suspected source of infection? No. Patient's initial sepsis screen is negative. Risk Assessment: Do you want to hurt yourself or someone else? Patient reports no desire to harm self or others. Onset of symptoms is unknown. 09:08 Method Of Arrival: EMS: [facility] ko1 09:08 Acuity: ORTIZ 3 ko1 Triage Assessment: 09:14 General: Appears uncomfortable, Behavior is calm, cooperative, appropriate for age. ko1 Pain: Complains of pain in abdomen. GI: Reports constipation. Historical: - Allergies: 09:14 No Known Allergies; ko1 - PMHx: 09:14 coronary atherosclerosis; High Cholesterol; Hypertension; Thyroid problem; ko1 - PSHx: 09:14 Coronary Angioplasty; Coronary artery bypass graft; Stented artery; ko1 - Immunization history:: Adult Immunizations up to date. - Infectious Disease History:: Denies. - Social history:: Smoking status: Patient denies any tobacco usage or history of. Screenin:22 [facility] ED Fall Risk Assessment (Adult) History of falling in the last 3 months, ko1 including since admission No falls in past 3 months (0 pts) Confusion or Disorientation No (0 pts) Intoxicated or Sedated No (0 pts) Impaired Gait No (0 pts) Mobility Assist Device Used No (0 pt) Altered Elimination No (0 pt) Score/Fall Risk Level 0 - 2 = Low Risk Oriented to surroundings, Maintained a safe environment, Educated pt \T\ family on fall prevention, incl call for assistance when getting out of bed, Assessed \T\ reinforced patient's understanding of fall precautions, Hourly rounding (assess needs \T\ fall precautionary measures) done. Abuse screen: Denies threats or abuse. Denies injuries from another. Nutritional screening: No deficits noted. Tuberculosis screening: No symptoms or risk factors identified. Assessment: 09:20 Neuro: No deficits noted. Cardiovascular: No deficits noted. Respiratory: No deficits ko1 noted. GI: No deficits noted. Bowel sounds present X 4 quads. Abd is soft X 4 quads Abdomen is tender to palpation in right upper quadrant. : No deficits noted. No signs and/or symptoms were reported regarding the genitourinary system. EENT: No deficits noted. No signs and/or symptoms were reported regarding the EENT system. Derm: No deficits noted. No signs and/or symptoms reported regarding the dermatologic system. Musculoskeletal: No deficits noted. No signs and/or symptoms reported regarding the musculoskeletal system. Vital Signs: 09:08 BP 120 / 70; Pulse 72; Resp 15; Temp 98; Pulse Ox 100% ; ko1 09:20 BP 127 / 70; Pulse 84; Resp 15; Pulse Ox 99% ; ko1 11:14 BP 134 / 72; Pulse 88; Resp 18; Pulse Ox 99% ; ko1 ED Course: 09:07 Patient arrived in ED. ko1 09:08 Jen Weeks RN is Primary Nurse. ko1 09:08 Jessika De La O [facility]-C [facility] kb 09:08 Kings Johnson MD is Attending Physician. kb 09:14 Triage completed. ko1 09:14 Arm band placed on right wrist. Patient placed in an exam room, on a stretcher, on ko1 pulse oximetry, Patient notified of wait time. 09:20 No provider procedures requiring assistance completed. ko1 09:22 Patient has correct armband on for positive identification. Placed in gown. Bed in low ko1 position. Call light in reach. Side rails up X2. Provided Education on: meds. Pulse ox on. NIBP on. Door closed. Noise minimized. Lights dimmed. Warm blanket given. Pillow given. 09:22 Maintain EMS IV. Dressing intact. Good blood return noted. Site clean \T\ dry. Gauge \T\ ko 1 site: 20g r RA. Flushed with 10 mL NS. 11:14 Assisted to bedside commode. ko1 11:29 IV discontinued, intact, bleeding controlled, No redness/swelling at site. Pressure ko1 dressing applied. Administered Medications: 09:12 CANCELLED (Physician Discretion): fleet ml OK once; may repeat once kb 09:25 Drug: Fleet Enema OK 133 ml OK once; may repeat once Route: OK; ko1 10:12 Follow up: Response: No change in condition ko1 10:14 Drug: Fleet Enema OK 133 ml OK once Route: OK; ko1 11:14 Follow up: Response: No change in condition ko1 11:46 Drug: Magnesium Citrate PO Liquid 300 ml PO once Route: PO; ko1 11:48 Follow up: Response: Medication Administered at Departure ko1 Medication: 09:22 VIS not applicable for this client. ko1 Outcome: 11:31 Discharge ordered by . kb 11:47 Discharged to home via wheelchair, with family, ko1 11:47 Condition: stable 11:47 Discharge instructions given to patient, Instructed on discharge instructions, follow up and referral plans. medication usage, Demonstrated understanding of instructions, follow-up care, medications, 11:48 Patient left the ED. ko1 Signatures: Jessika De La O, NURSERY ATTENDANT-C NURSERY ATTENDANT-Ckb Jen Weeks, RN RN ko1
--- NOTE | 2024-03-23 11:31 | EDPHYS ---
Physician Documentation [facility] Name: Arnold Roberts Age: 84 yrs Sex: Male : 1940 Arrival Date: 03/23/2024 Time: 09:06 Bed 15 Private MD: ED Physician Kings Johnson HPI: 03/23 09:08 This 84 yrs old Male presents to ER via Unassigned with complaints of Constipation. kb 09:08 Pt is an 84 year old male who presents for constipation for 5 days. States he has kb always had a problem with constipation, he normally has a BM twice a week. Denies n/v, fever, abd pain. States he feels fullness in LLQ due to stool . Historical: - Allergies: 09:14 No Known Allergies; ko1 - PMHx: 09:14 coronary atherosclerosis; High Cholesterol; Hypertension; Thyroid problem; ko1 - PSHx: 09:14 Coronary Angioplasty; Coronary artery bypass graft; Stented artery; ko1 - Immunization history:: Adult Immunizations up to date. - Infectious Disease History:: Denies. - Social history:: Smoking status: Patient denies any tobacco usage or history of. ROS: 09:10 Constitutional: As per HPI kb Exam: 09:10 Constitutional: This is a well developed, well nourished patient who is awake, alert, kb and in no acute distress. Head/Face: Normocephalic, atraumatic. ENT: Moist Mucous membranes Cardiovascular: Regular rate Respiratory: Respirations even and unlabored. No increased work of breathing. Talking in full sentences Abdomen/GI: Soft, non-tender. No distention Skin: Warm, dry with normal turgor. Normal color. MS/ Extremity: Pulses equal, no cyanosis. Neurovascular intact. Full, normal range of motion. Neuro: Awake and alert, GCS 15, oriented to person, place, time, and situation. Vital Signs: 09:08 BP 120 / 70; Pulse 72; Resp 15; Temp 98; Pulse Ox 100% ; ko1 09:20 BP 127 / 70; Pulse 84; Resp 15; Pulse Ox 99% ; ko1 11:14 BP 134 / 72; Pulse 88; Resp 18; Pulse Ox 99% ; ko1 Procedures: 11:30 Fecal disimpaction: digital disimpaction was performed, with a moderate amount of stool kb expressed. The patient tolerated the intervention well, feeling better after disimpaction. MDM: 09:08 Medical Screening Exam initiated kb 09:10 Data reviewed: vital signs, nurses notes. kb 10:45 Differential diagnosis: constipation, bowel obstruction, fecal impaction. Test kb considered but Not performed: CT: ct abd considered but pt has has no abd tenderness, has chronic constipation and states this is similar to previous episodes of impaction. Historians other than the Patient: EMS: [facility]. 11:30 Counseling: I had a detailed discussion with the patient and/or guardian regarding the kb historical points, exam findings, and any diagnostic results supporting the discharge/admit diagnosis, the need for outpatient follow up, a family practitioner, to return to the emergency department if symptoms worsen or persist or if there are any questions or concerns that arise at home. Administered Medications: 09:12 CANCELLED (Physician Discretion): fleet ml [place] once; may repeat once kb 09:25 Drug: Fleet Enema WY 133 ml W[place] once; may repeat once Route: WY; ko1 10:12 Follow up: Response: No change in condition ko1 10:14 Drug: Fleet Enema W[place] 133 ml WY once Route: W[place]; ko1 11:14 Follow up: Response: No change in condition ko1 11:46 Drug: Magnesium Citrate PO Liquid 300 ml PO once Route: PO; ko1 11:48 Follow up: Response: Medication Administered at Departure ko1 Disposition Summary: 03/23/24 11:31 Discharge Ordered Notes: Location: Home Condition: Stable kb Diagnosis - Fecal impaction kb Followup: kb - With: Emergency Department - When: As needed - Reason: Worsening of condition Followup: kb - With: Private Physician - When: 2 - 3 days - Reason: Recheck today's complaints, Continuance of care, Re-evaluation by your physician Discharge Instructions: - Discharge Summary Sheet kb - Fecal Impaction kb Forms: - Medication Reconciliation Form kb - Antibiotic Education kb - Prescription Opioid Use kb - Patient Portal Instructions kb - Leadership Thank You Letter kb Signatures: Jessika De La O FNP-C FNP-Jen Esparza, RN RN ko1 Corrections: (The following items were deleted from the chart) 09:12 09:08 Fleet Enema W[place] 133 ml W[place] once; may repeat once ordered. kb kb
[2024-03-23] MEDS ORDERED: MAGNESIUM CITRATE 300 ML BOT ONE (11:33)
[2024-03-23 11:52] VITALS: TEMP 98
[2024-03-23 11:53] VITALS: O2SAT 99
[2024-03-23 11:54] VITALS: BP 134/72
== END 2024-03-23 11:48 | disposition home or self-care (01) ==
LOC: ER 09:06
DX: K56.41 Fecal impaction (principal)
CPT/HCPCS: 99284

== ENCOUNTER 2024-05-29 08:14 | Emergency (ER) | payer OTHER ==
[2024-05-29] MEDS ORDERED: NA CHLORIDE 0.9% 500 ML ONE (09:05)
--- NOTE | 2024-05-29 09:43 | RAD REPORT ---
Exam:Foot Right 3 View CLINICAL HISTORY: Right foot pain FINDINGS: No fracture or dislocation seen Large posterior calcaneal spur. Vascular calcifications. Mild hallux valgus deformity Mild cortical irregularity distal aspects fifth metatarsal could be secondary to prior trauma or surg latonya. Osteomyelitis can also have this appearance and should be clinically.
--- NOTE | 2024-05-29 09:44 | RAD REPORT ---
EXAM:Extremity Venous Uni Ltd HISTORY: Right leg pain TECHNIQUE: Sonographic evaluation right lower extremity performed.Grayscale, color and spectral sincere sis performed on all vessels COMPARISON: None. FINDINGS: Right common femoral, superficial femoral, greater saphenous, popliteal and posterior tibial veins ar e compressible and demonstrate augmentation. Doppler demonstrates good flow. IMPRESSION: No evidence of deep venous thrombosis involving the right lower extremity.
[2024-05-29 09:59] LABS: Absolute Basophils 0.1 K/uL (0-0.5); Absolute Eosinophils 0.3 K/uL (0-0.5); Absolute Lymphocytes (CBC) 1.3 K/uL (0.7-4.9); Absolute Monocytes 1.4 K/uL (0.1-1.3); Absolute Neutrophil 12.3 K/uL (1.8-8.0); Basophils % 0.5 % (0-1.3); Eosinophils % 2.1 % (0-4.4); Hematocrit 39.9 % (39.6-49.0); Hemoglobin 13.8 g/dL (13.6-17.9); Lymphocytes % 8.2 % (15.3-44.8); MCH 33.1 pg (27.0-35.0); MCHC 34.7 g/dL (32.0-36.0); MCV 95.5 fL (80-100); MPV 8.2 fL (7.6-11.3); Monocytes % 9.2 % (3.3-12.3); Platelets 312 thou/uL (152-406); RBC Red Blood Cell Count 4.17 M/uL (4.33-5.43); Red Cell Distribution Width 13.7 % (12.1-15.2)
[2024-05-29 10:12] LABS: Albumin 3.3 g/dL (3.4-5.0); Albumin/Globulin Ratio 0.7 (1.1-1.8); Anion Gap 9.7 mEq/L (5.0-15.0); Bilirubin Total 0.5 mg/dL (0.2-1.0); Globulin 4.9 g/dL (2.3-3.5); Potassium 3.7 mEq/L (3.5-5.1); Protein, Total 8.2 g/dL (6.4-8.2)
--- NOTE | 2024-05-29 10:23 | EDPHYS ---
Physician Documentation [facility] Name: Arnold Roberts Age: 84 yrs Sex: Male : 1940 Arrival Date: 05/29/2024 Time: 08:14 Bed 25 Private MD: FREDDIE Physician Kush Stephens HPI: 05/29 09:07 This 84 yrs old Male presents to ER via Ambulatory with complaints of Ankle hemanth Swelling. 09:07 The patient presents with decreased range of motion, an injury, pain, swelling, hemanth tenderness. The complaints affect the right ankle, right ankle, lateral aspect of right foot, anterior aspect of right ankle and dorsum of right foot. Onset: The symptoms/episode began/occurred 10 day(s) ago. Context: resulted from an unknown cause, The mechanism of injury is unknown. Associated signs and symptoms: The patient has no apparent associated signs or symptoms. Severity of symptoms: At their worst the symptoms were moderate, in the emergency department the symptoms are unchanged. The patient has experienced similar episodes in the past, a few times. Historical: - Allergies: 08:33 No Known Allergies; ss - PMHx: 08:33 Thyroid problem; Hypertension; High Cholesterol; coronary atherosclerosis; ss - PSHx: 08:33 Coronary Angioplasty; Coronary artery bypass graft; Stented artery; ss - Immunization history:: Adult Immunizations up to date. - Infectious Disease History:: Denies. - Social history:: Smoking status: Patient denies any tobacco usage or history of. - Family history:: not pertinent. ROS: 09:07 Constitutional: Negative for fever, chills, and weight loss, Eyes: Negative for injury, hemanth pain, redness, and discharge, ENT: Negative for injury, pain, and discharge, Neck: Negative for injury, pain, and swelling, Cardiovascular: Negative for chest pain, palpitations, and edema, Respiratory: Negative for shortness of breath, cough, wheezing, and pleuritic chest pain, Abdomen/GI: Negative for abdominal pain, nausea, vomiting, diarrhea, and constipation, Back: Negative for injury and pain, : Negative for injury, bleeding, discharge, and swelling, Skin: Negative for injury, rash, and discoloration, Neuro: Negative for headache, weakness, numbness, tingling, and seizure, Psych: Negative for depression, anxiety, suicide ideation, homicidal ideation, and hallucinations, Allergy/Immunology: Negative for hives, rash, and allergies, Endocrine: Negative for neck swelling, polydipsia, polyuria, polyphagia, and marked weight changes, Hematologic/Lymphatic: Negative for swollen nodes, abnormal bleeding, and unusual bruising, 09:07 MS/extremity: Positive for decreased range of motion, erythema, pain, swelling, tenderness, of the right foot, right ankle, lateral aspect of right foot, medial aspect of right foot, anterior aspect of right ankle and dorsum of right foot, Exam: 09:07 Constitutional: This is a well developed, well nourished patient who is awake, alert, hemanth and in no acute distress. Head/Face: Normocephalic, atraumatic. Eyes: Pupils equal round and reactive to light, extra-ocular motions intact. Lids and lashes normal. Conjunctiva and sclera are non-icteric and not injected. Cornea within normal limits. Periorbital areas with no swelling, redness, or edema. ENT: Nares patent. No nasal discharge, no septal abnormalities noted. Tympanic membranes are normal and external auditory canals are clear. Oropharynx with no redness, swelling, or masses, exudates, or evidence of obstruction, uvula midline. Mucous membranes moist. Neck: Trachea midline, no thyromegaly or masses palpated, and no cervical lymphadenopathy. Supple, full range of motion without nuchal rigidity, or vertebral point tenderness. No Meningismus. Chest/axilla: Normal chest wall appearance and motion. Nontender with no deformity. No lesions are appreciated. Cardiovascular: Regular rate and rhythm with a normal S1 and S2. No gallops, murmurs, or rubs. Normal PMI, no JVD. No pulse deficits. Respiratory: Lungs have equal breath sounds bilaterally, clear to auscultation and percussion. No rales, rhonchi or wheezes noted. No increased work of breathing, no retractions or nasal flaring. Abdomen/GI: Soft, non-tender, with normal bowel sounds. No distension or tympany. No guarding or rebound. No evidence of tenderness throughout. Back: No spinal tenderness. No costovertebral tenderness. Full range of motion. Skin: Warm, dry with normal turgor. Normal color with no rashes, no lesions, and no evidence of cellulitis. Neuro: Awake and alert, GCS 15, oriented to person, place, time, and situation. Cranial nerves II-XII grossly intact. Motor strength 5/5 in all extremities. Sensory grossly intact. Cerebellar exam normal. Normal gait. Psych: Awake, alert, with orientation to person, place and time. Behavior, mood, and affect are within normal limits. 09:07 Musculoskeletal/extremity: ROM: full active range of motion, full passive range of motion, limited active range of motion due to pain, limited passive range of motion due to pain, Circulation is intact in all extremities. Sensation intact. Compartment Syndrome exam of affected extremity: is normal. Weight bearing: able to fully bear weight, Tendon exam: specific tendon testing normal through active and passive range of motion DVT Exam: negative Homans' sign noted on exam, no appreciated bluish discoloration, pain, swelling, tenderness, erythema, increased warmth, Calves: are non-tender, have equal circumference, Vital Signs: 08:32 BP 132 / 66; Pulse 75; Resp 16; Temp 98.3; Pulse Ox 97% on R/A; Weight 68.95 kg; Height ss 5 ft. 9 in. ; Pain 3/10; 09:48 BP 129 / 64; Pulse 71; Resp 18; Pulse Ox 99% on R/A; Pain 0/10; ld1 08:32 Body Mass Index 22.45 (68.95 kg, 175.26 cm) ss 08:32 Pain Scale: Adult ss 09:48 Pain Scale: Adult ld1 MDM: 08:29 Medical Screening Exam initiated hemanth 09:11 Differential diagnosis: fracture, sprain, foreign body, penetrating trauma, arthritis, hemanth gout, cellulitis. Data reviewed: vital signs, nurses notes, lab test result(s), radiologic studies, doppler, plain films. Consideration of Admission/Observation Escalation of care including admission/observation considered. I considered the following discharge prescriptions or medication management in the emergency department Medications were administered in the Emergency Department. See 08:39 Order name: CBC with Diff; Complete Time: 10:18 hemanth 05/29 08:39 Order name: CMP; Complete Time: 10:18 05/29 08:34 Order name: XRAY Foot RIGHT 3 View; Complete Time: 10:18 05/29 08:39 Order name: US Extremity Venous Unilateral Ltd; Complete Time: 10:18 [facility] 05/29 10:22 Order name: Walking boot; Complete Time: 10:43 hemanth Administered Medications: 09:48 Drug: NS 0.9% IV 500 ml 500 ml IV at 1 bolus once; to be given as a bolus over 30 ld1 minutes Volume: 500 ml; Route: IV; Rate: 1 bolus; Site: left wrist; 10:22 Follow up: Response: No adverse reaction; IV Status: Completed infusion; IV Intake: ld1 500ml 10:43 Drug: Trimethoprim-Sulfamethoxazole PO (160 mg-800 mg (DS) 1 tablet PO once Route: PO; ld1 10:43 Drug: ceFAZolin IVPB 1 grams IVPB once Route: IVPB; Site: left wrist; ld1 10:43 Drug: Cephalexin PO 500 mg PO once Route: PO; ld1 Disposition Summary: 05/29/24 10:22 Discharge Ordered Notes: Location: Home hemanth Problem: new hemanth Symptoms: have improved hemanth Condition: Stable hemanth Diagnosis - Pain in right ankle and joints of right foot hemanth - Edema, unspecified hemanth - Elevated white blood cell count hemanth Followup: hemanth - With: Private Physician - When: 2 - 3 days - Reason: Recheck today's complaints, Continuance of care, Re-evaluation by your physician Followup: hemanth - With: Juan Pinto DPM - When: 2 - 3 days - Reason: Recheck today's complaints, Re-evaluation by your physician Followup: hemanth - With: Michael Loredo MD - When: 2 - 3 days - Reason: Recheck today's complaints, Re-evaluation by your physician Discharge Instructions: - Discharge Summary Sheet hemanth - Joint Pain hemanth - Arthritis hemanth - Edema hemanth - Musculoskeletal Pain hemanth - Edema, [id number] hemanth - Arthritis, [id number] hemanth - Ankle Pain hemanth - How to Use Cold Therapy hemanth - Joint Pain, [id number] hemanth - Walking Boot, Adult hemanth - Foot Pain hemanth - Peripheral Edema hemanth Forms: - Medication Reconciliation Form hemanth - Antibiotic Education hemanth - Prescription Opioid Use hemanth - Patient Portal Instructions hemanth - Leadership Thank You Letter hemanth Prescriptions: - Cephalexin 500 mg Oral capsule - take 1 capsule ORAL route every 6 hours for 10 days; 40 capsule; Refills: 0, hemanth Product Selection Permitted - Motrin IB 200 mg Oral tablet - take 2 tablet ORAL route every 6 hours As needed as needed with food; 30 hemanth tablet; Refills: 0, Product Selection Permitted - Bactrim DS 800-160 mg Oral tablet - take 1 tablet ORAL route every 12 hours for 10 days; 20 tablet; Refills: 0, hemanth Product Selection Permitted Signatures: Dispatcher [employer] Kush Chan MD MD cha Blanchard, Shelby, RN RN ss Starr Narvaez RN RN ld1
--- NOTE | 2024-05-29 10:23 | ER ---
Nurse's Notes [facility] Name: Arnold Roberts Age: 84 yrs Sex: Male : 1940 Arrival Date: 05/29/2024 Time: 08:14 Bed 25 Private MD: Diagnosis: Pain in right ankle and joints of right foot;Edema, unspecified;Elevated white blood cell count Presentation: 05/29 08:32 Chief complaint: Patient states: R foot pain x 1 week. No known injury. Coronavirus ss screen: Client denies travel out of the [place] in the last 14 days. Ebola Screen: Patient denies exposure to infectious person. Patient denies travel to an Ebola-affected area in the 21 days before illness onset. Initial Sepsis Screen: Does the patient meet any 2 criteria? No. Patient's initial sepsis screen is negative. Does the patient have a suspected source of infection? No. Patient's initial sepsis screen is negative. Risk Assessment: Do you want to hurt yourself or someone else? Patient reports no desire to harm self or others. Onset of symptoms was May 22, 2024. 08:32 Method Of Arrival: Ambulatory ss 08:32 Acuity: ORTIZ 3 ss Historical: - Allergies: 08:33 No Known Allergies; ss - PMHx: 08:33 Thyroid problem; Hypertension; High Cholesterol; coronary atherosclerosis; ss - PSHx: 08:33 Coronary Angioplasty; Coronary artery bypass graft; Stented artery; ss - Immunization history:: Adult Immunizations up to date. - Infectious Disease History:: Denies. - Social history:: Smoking status: Patient denies any tobacco usage or history of. - Family history:: not pertinent. Screenin:48 [facility] ED Fall Risk Assessment (Adult) History of falling in the last 3 months, ld1 including since admission No falls in past 3 months (0 pts) Confusion or Disorientation No (0 pts) Intoxicated or Sedated No (0 pts) Impaired Gait No (0 pts) Mobility Assist Device Used No (0 pt) Altered Elimination No (0 pt) Score/Fall Risk Level 0 - 2 = Low Risk Oriented to surroundings, Hourly rounding (assess needs \T\ fall precautionary measures) done. Abuse screen: Denies threats or abuse. Denies injuries from another. Nutritional screening: No deficits noted. Tuberculosis screening: No symptoms or risk factors identified. Assessment: 09:48 General: Appears in no apparent distress. comfortable, Behavior is calm, cooperative, ld1 appropriate for age. Pain: Denies pain. Neuro: Level of Consciousness is awake, alert, obeys commands, Oriented to person, place, time, situation. Cardiovascular: Capillary refill is > 3 seconds Patient's skin is warm and dry. Respiratory: Airway is patent Respiratory effort is even, unlabored. GI: Abdomen is flat, non-distended. : No signs and/or symptoms were reported regarding the genitourinary system. EENT: No signs and/or symptoms were reported regarding the EENT system. Derm: No signs and/or symptoms reported regarding the dermatologic system. Musculoskeletal: No signs and/or symptoms reported regarding the musculoskeletal system. Vital Signs: 08:32 BP 132 / 66; Pulse 75; Resp 16; Temp 98.3; Pulse Ox 97% on R/A; Weight 68.95 kg; Height ss 5 ft. 9 in. ; Pain 3/10; 09:48 BP 129 / 64; Pulse 71; Resp 18; Pulse Ox 99% on R/A; Pain 0/10; ld1 08:32 Body Mass Index 22.45 (68.95 kg, 175.26 cm) ss 08:32 Pain Scale: Adult ss 09:48 Pain Scale: Adult ld1 ED Course: 08:24 Patient arrived in ED. gl 08:29 Kush Stephens MD is Attending Physician. hemanth 08:33 Triage completed. ss 08:33 Arm band placed on right wrist. ss 08:49 XRAY Foot RIGHT 3 View In Process Unspecified. EDMS 08:54 Starr Narvaez, LLOYD is Primary Nurse. ld1 09:20 US Extremity Venous Unilateral Ltd In Process Unspecified. EDMS 09:48 Patient has correct armband on for positive identification. Placed in gown. Bed in low ld1 position. Call light in reach. Side rails up X2. Pulse ox on. NIBP on. Door closed. Noise minimized. Warm blanket given. 09:48 CMP Sent. ld1 09:48 CBC with Diff Sent. ld1 09:48 No provider procedures requiring assistance completed. Inserted saline lock: 22 gauge ld1 in left wrist, using aseptic technique. Blood collected. Flushed with 10 mL NS. 10:22 Juan Pinto DPM is Referral Physician. hemanth 10:22 Michael Loredo MD is Referral Physician. hemanth 10:49 IV discontinued, intact, bleeding controlled, No redness/swelling at site. ld1 Administered Medications: 09:48 Drug: NS 0.9% IV 500 ml 500 ml IV at 1 bolus once; to be given as a bolus over 30 ld1 minutes Volume: 500 ml; Route: IV; Rate: 1 bolus; Site: left wrist; 10:22 Follow up: Response: No adverse reaction; IV Status: Completed infusion; IV Intake: ld1 500ml 10:43 Drug: Trimethoprim-Sulfamethoxazole PO (160 mg-800 mg (DS) 1 tablet PO once Route: PO; ld1 10:43 Drug: ceFAZolin IVPB 1 grams IVPB once Route: IVPB; Site: left wrist; ld1 10:43 Drug: Cephalexin PO 500 mg PO once Route: PO; ld1 Medication: 09:48 VIS not applicable for this client. ld1 Intake: 10: IV: 500ml; Total: 500ml. ld1 Outcome: :22 Discharge ordered by . hemanth 10:49 Discharged to home ambulatory, ld1 10:49 Condition: stable 10:49 Discharge instructions given to patient, Instructed on discharge instructions, follow up and referral plans. Demonstrated understanding of instructions, follow-up care, medications, Prescriptions given X 3, 10:49 Patient left the ED. ld1 Signatures: Dispatcher [employer] EDKush Sepulveda MD MD cha Blanchard, Shelby, RN RN Starr Narvaez RN RN ld1 Christy Cavanaugh, Reg Reg gl
[2024-05-29] MEDS ORDERED: SMZ./TMP. 800/160 MG TABLET ONE (10:33)
[2024-05-29] MEDS ORDERED: CEFAZOLIN SODIUM 1 GM/VIAL ONE (10:33)
[2024-05-29] MEDS ORDERED: CEPHALEXIN 250 MG CAP ONE (10:33)
[2024-05-29 11:21] VITALS: TEMP 98.3
[2024-05-29 11:23] VITALS: BP 129/64; O2SAT 99
== END 2024-05-29 10:49 | disposition home or self-care (01) ==
LOC: ER 08:14
DX: M25.571 Pain in right ankle and joints of right foot (principal); R60.9 Edema, unspecified; D72.829 Elevated white blood cell count, unspecified
CPT/HCPCS: 96361; 85025; 36415; 80053; 73630; 93971; 96374; 99284; J7040; J0690